=== PATIENT | female | born 1990 | race American Indian/Alaskan Native ===

== ENCOUNTER 2019-10-07 10:12 | Outpatient (CLI) | payer MEDICAID ==
[2019-10-07 11:24] VITALS: BP 110/65
[2019-10-07 13:08] LABS: Bacteria,Urine 1+ /HPF (Negative); Bilirubin,Urine NEG (Negative); Blood,Urine NEG (Negative); Color,Urine Straw (Yellow); Protein,Urine <15 mg/dL mg/dL (Negative); Urobilinogen,Urine < 2.0 mg/dL (<2.0)
[2019-10-07] MEDS ORDERED: CLINDAMYCIN 300 MG/50 mL 300 MG/50 ML BAG IV ONE (14:00)
== END 2019-10-07 15:17 | disposition home or self-care (01) ==
LOC: TRG 10:12
PROVIDERS: ATTEND Obstetrics & Gynecology
DX: O47.1 False labor at or after 37 completed weeks of gestation (principal); Z3A.39 39 weeks gestation of pregnancy
CPT/HCPCS: 59025; 81001

== ENCOUNTER 2019-10-11 22:45 | Inpatient (IN) | payer MEDICAID ==
[2019-10-12] MEDS ORDERED: LIDOCAINE (2%) 20 MG/1 ML VIAL 20 ML MDV INFILTRATI ONE (00:59)
[2019-10-12] MEDS ORDERED: LACTATED RINGERS 1,000 ML IV SCH (01:00)
--- NOTE | 2019-10-12 01:07 | History and Physical Report ---
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 Family/Genetic History: diabetes (PGF), cancer (Mother of throat cancer at age 44) Social history: single, other (Living in a Extended Stay Hotel [place], [place]) - Obstetrical History Expected Date of Delivery: 10/18/19 Actual Gestation: 39 Week(s) 1 Day(s) : 4 Para: 3 Number of Pregnancies: 3 Number of Living Children: 3 #1 Infant Gender: Male year: 2,015 Birthweight: 2.268 kg Method of Delivery: Vaginal Gestational age at delivery: 34 #2 Gender: Female year: 2,016 Birthweight: 2.268 kg Method of Delivery: Vaginal Gestational age at delivery: 35 #3 Infant Gender: Male year: 2,017 Birthweight: 2.722 kg Method of Delivery: Vaginal Gestational age at delivery: 32 Medications and Allergies Allergies Allergy/AdvReac Type Severity Reaction Status Date / Time Penicillins Allergy Hives Verified 10/07/19 11:12 Home Medications Medication Instructions Recorded Confirmed Last Taken Type No Known Home Medications [No 10/07/19 10/07/19 Unknown History Reported Home Medications] Active Meds: Active Medications Oxytocin/Sodium Chloride (Pitocin/Ns 20 Unit/1000ml Drip) 20 units in 1,000 mls @ 125 mls/hr IV DIRECT LACI Lactated Ringer's (Lactated Ringers) 1,000 mls @ 125 mls/hr IV DIRECT LACI Lidocaine (Xylocaine 2%) 20 ml INFILTRATI ONCE ONE Stop: 10/12/19 01:00 Review of Systems All systems: negative - Vital Signs Vital signs: Vital Signs Temp Pulse Resp BP 98.2 F 86 18 122/68 10/11/19 23:30 10/11/19 23:30 10/11/19 23:30 10/11/19 23:30 Temp Pulse Resp BP Pulse Ox 98.2 F 86 18 122/68 10/11/19 23:30 10/11/19 23:30 10/11/19 23:30 10/11/19 23:30 - Physical Exam Breasts: Positive: normal Lungs: Positive: Clear to auscultation, Normal air movement Abdomen: Positive: normal appearance, soft Genitourinary (Female): Positive: normal external genitalia Uterus: Positive: enlarged Anus/Rectum: Positive: normal perianal skin Extremities: Positive: normal - Obstetrical Uterine Contraction Monitor Mode: External Cervical Dilatation: 10 Cervical Effacement Percentage: 100 station: +4 Uterine Contraction Pattern: Regular Uterine Contraction Intensity: Strong/Firm Results All other labs normal. Assessment and Plan A: IUP @ 39 Weeks Active Labor GBS Unknown Walk-In patient P: Admit to L&D per Routine Orders Expect
[2019-10-12] MEDS ORDERED: WITCH HAZEL/ GLYCERIN PAD TP PRN (01:10)
[2019-10-12] MEDS ORDERED: diphenhydrAMINE 25 MG CAP PO PRN (01:10)
[2019-10-12] MEDS ORDERED: MAGNESIUM HYDROXIDE (MOM) ORAL LIQD UDC PO PRN (01:10)
[2019-10-12] MEDS: OXYTOCIN 20 UNIT/1000ML DRIP 20 UNITS/1,000 ML BAG IV SCH ×2 (01:11→01:20)
[2019-10-12] MEDS ORDERED: OXYTOCIN 10 UNIT/1 ML INJ IM ONE (01:19)
--- NOTE | 2019-10-12 01:19 | Procedure Note ---
OB Delivery Note - Delivery Date of Delivery: 10/11/19 (2247) Surgeon: JENELLE LAMB Estimated blood loss: 200cc - Vaginal Delivery presentation: vertex Intrapartum events: precipitous labor- <3hr Delivery induction: none Delivery monitor: none Route of delivery: Delivery placenta: spontaneous Episiotomy: none Delivery laceration: none Anesthesia: none Delivery comments: Arrived by EMS with head crowing; Precipitous vaginal delivery on the stretcher of a 6'13 female infant over a intact perineum without pain control with Apgars of 8 and 9 at 2247 on 10/11/2019. Infant directly to maternal abd/chest, skin to skin contact. Spontaneous delivery of placenta complete and intact with [place] side presenting at 2257. 20U of Pitocin given IM x 1 dose. Fundus is firm and midline located 4 below the U. Lochia is scant. Placenta to pathology. Cord blood collected. - A at 1 minute: 8 at 5 minutes: 9 Gender: Female (6'13)
[2019-10-12] MEDS: IBUPROFEN 600 MG TAB PO SCH ×4 (03:12→23:26)
[2019-10-12] MEDS: ACETAMINOPHEN 325 MG TAB PO PRN (05:25)
[2019-10-12] MEDS: PRENATAL VIT27-FE FUMARATE-FOLIC ACID VIT TAB PO SCH (10:04)
--- NOTE | 2019-10-12 12:24 | Progress Note ---
Assessment and Plan A: PPD#1 s/p Bottle feeding Pt staying in extended stay, no family present, poor historian Stable P: Routine PP care environmental services specialist consult Anticipate d/c in 24-48 hrs Subjective - Subjective Date of service: 10/12/19 Principal diagnosis: PPD#1 s/p Interval history: Pt presented to [facility] via EMS with precip delivery of viable female infant. 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 She is currently living in an extended stay in [place]. She hasn't chosen a name for the baby and she has no family present. is in room in bedside crib. Patient reports: appetite normal, voiding normally, pain well controlled, flatus, ambulating normally [place]: doing well, bottle feeding Objective - Vital Signs Latest vital signs: Vital Signs Temp Pulse Resp BP BP Pulse Ox 10/12/19 08:54 98.0 F 69 16 119/69 96 10/12/19 01:45 98.1 F 87 18 116/65 97 10/11/19 23:30 98.2 F 86 18 122/68 122/68 Intake and Output 10/11/19 10/12/19 10/12/19 23:59 07:59 15:59 Intake Total 18.75 240 Balance 18.75 240 Intake: IV 18.75 PITOCin/NS 20 UNIT/1000ML 18.75 DRIP 20 units In 1,000 ml @ 125 mls/hr IV DIRECT LACI Rx#:[id number] Oral 240 Other: Total, Intake Amount 240 Weight 106.594 kg - Exam Breasts: Present: normal Cardiovascular: Present: Regular rate, Normal S1, Normal S2, No murmurs Lungs: Present: Clear to auscultation, Normal air movement Abdomen: Present: normal appearance, soft, normal bowel sounds. Absent: distention Vulva: both: normal Uterus: Present: firm, fundal height below umbilicus (-1) Extremities: Present: normal Deep Tendon Reflex Grade: Normal +2
[2019-10-12 15:13] LABS: Hematocrit 33.1 % (30.3-42.9); Hemoglobin 10.8 gm/dl (10.1-14.3)
[2019-10-13] MEDS ORDERED: MEASLES, MUMPS & RUBELLA 12,500 UNIT/0.5 ML VACCINE SUB-Q ONE (06:00)
[2019-10-13] MEDS ORDERED: TETANUS,DIPH,PERTUSS(ACELL) VACCINE 0.5 ML SYRINGE IM ONE (06:00)
[2019-10-13] MEDS: IBUPROFEN 600 MG TAB PO SCH ×4 (06:00→23:52)
[2019-10-13] MEDS: PRENATAL VIT27-FE FUMARATE-FOLIC ACID VIT TAB PO SCH (08:20)
--- NOTE | 2019-10-13 11:41 | Discharge Summary ---
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 Hospitalization Reason for admission: active labor, IUP at term Delivery: Episiotomy: none Laceration: none Other procedures: none complications: none Discharge diagnosis: other [place] baby: female Hospital course: See admission H & P; OB delivery summary and PP progress notes Condition at discharge: Good Disposition: DC-01 TO HOME OR SELFCARE - Discharge Diagnoses (1) (normal spontaneous vaginal delivery) Status: Acute (2) Anemia Status: Acute Qualifiers: Anemia type: other cause Other causes of anemia: acute posthemorrhagic Qualified Code(s): D62 - Acute posthemorrhagic anemia Plan - Provider Discharge Summary Activity: routine, no sex for 6 weeks, no heavy lifting 4 weeks, no strenuous exercise Diet: other (Iron rich diet) Instructions: routine Additional instructions: [] Smoking cessation referral if applicable(refer to patient education folder for contact #) [] Refer to [facility]'s [facility] Booklet Call your doctor immediately for: * Fever > 100.5 * Heavy vaginal bleeding ( >1 pad per hour) * Severe persistent headache * Shortness of breath * Reddened, hot, painful area to leg or breast - Follow up plan Follow up: PRIMARY CARE, [Primary Care Provider] - 6 Weeks Forms: [facility] Discharge Summary, Discharge Signature Page
[2019-10-13] MEDS: ACETAMINOPHEN 325 MG TAB PO PRN (21:29)
[2019-10-14] MEDS: IBUPROFEN 600 MG TAB PO SCH (07:58)
[2019-10-14 12:24] VITALS: BP 108/70
== END 2019-10-14 14:30 | disposition home or self-care (01) | DRG 775 ==
LOC: LD 22:45 → OB 10-12 01:23
PROVIDERS: ADMIT Obstetrics & Gynecology; ATTEND Obstetrics & Gynecology
PROC: 10E0XZZ Delivery of Products of Conception, External Approach (ICD-10-PCS; principal; 2019-10-12)
DX: O62.3 Precipitate labor (principal); Z3A.39 39 weeks gestation of pregnancy; Z37.0 Single live birth; O90.81 Anemia of the puerperium; D62 Acute posthemorrhagic anemia
CPT/HCPCS: 36415; 85014; 85018; 86592; 86706; 86762; 86850; 86900; 86901; 87806; 88307; G0378; J2590

== ENCOUNTER 2021-07-30 16:50 | Inpatient (IN) | payer MEDICAID ==
--- NOTE | 2021-07-30 17:20 | Event Note ---
ED Screening Note Date of service: 07/30/21 Time: 17:18 ED Screening Note: 31-year-old -[place] female who is approximately 32 weeks presents to the emergency room complaining of chest tightness shortness of breath for the last couple days. Patient was cleared by labor and delivery. She is unvaccinated. She has not tested for Covid. She denies any sick contact. This initial assessment/diagnostic orders/clinical plan/treatment(s) is/are subject to change based on patients health status, clinical progression and re- assessment by fellow clinical providers in the ED. Further treatment and workup at subsequent clinical providers discretion. Patient/guardian urged not to elope from the ED as their condition may be serious if not clinically assessed and managed. Initial orders include:
--- NOTE | 2021-07-30 17:39 | Emergency Department Report ---
ED Shortness of Breath HPI - General Chief Complaint: Dyspnea/Respdistress Stated Complaint: ISABELLA Time Seen by Provider: 07/30/21 17:29 Source: patient Mode of arrival: Ambulatory Limitations: No Limitations - History of Present Illness Initial Comments: 31-year-old female, no past medical history, currently 32 weeks , unvaccinated against COVID-19, presents to ED with difficulty breathing for 2 to 3 days. Patient reports associated cough, sore throat pain. She denies fever or chills, loss of smell or taste. Patient denies any history of PE or DVT. She denies any leg pain or swelling. Patient denies any known contact with anyone who was tested positive for COVID-19. Patient denies any abdominal pain, vaginal bleeding, or leakage of vaginal fluid. 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 Has not yet made an appointment with the OB group that she wants to go to. She is currently in between [employer]KE [employer]INGS [employer]ATER's. MD Complaint: shortness of breath -: days(s) (3) Severity: moderate Consistency: constant Improves With: rest Worsens With: exertion Associated Symptoms: chest pain, cough, nausea/vomiting Treatments Prior to Arrival: none - Related Data Home Oxygen Therapy: No Home Medications Medication Instructions Recorded Confirmed Last Taken Vitamin 1 tab PO QDAY 10/12/19 10/12/19 10/10/19 Allergies Allergy/AdvReac Type Severity Reaction Status Date / Time Penicillins Allergy Hives Verified 10/07/19 11:12 ED Review of Systems ROS: Stated complaint: ISABELLA Other details as noted in HPI Comment: All other systems reviewed and negative Constitutional: denies: chills, fever ENT: other (Denies loss of smell or taste) Respiratory: cough, shortness of breath Cardiovascular: chest pain Gastrointestinal: nausea, vomiting Musculoskeletal: other (Denies leg pain or swelling) ED Past Medical Hx - Past Medical History Previous Medical History?: No Hx Hypertension: No Hx Congestive Heart Failure: No Hx Diabetes: No Hx Deep Vein Thrombosis: No Hx Renal Disease: No Hx Sickle Cell Disease: No Hx Seizures: No Hx Asthma: No Hx COPD: No Hx HIV: No - Surgical History Past Surgical History?: No - Social History Smoking Status: Never Smoker Substance Use Type: None - Medications Home Medications: Home Medications Medication Instructions Recorded Confirmed Last Taken Type Vitamin 1 tab PO QDAY 10/12/19 10/12/19 10/10/19 History ED Physical Exam - General Limitations: No Limitations General appearance: alert, in no apparent distress, obese - Head Head exam: Present: atraumatic, normocephalic - Eye Eye exam: Present: normal appearance, EOMI - ENT ENT exam: Present: mucous membranes moist - Neck Neck exam: Present: normal inspection - Respiratory Respiratory exam: Present: normal lung sounds bilaterally, other (Tachypnea pre sent) - Cardiovascular Cardiovascular Exam: Present: normal rhythm, tachycardia - GI/Abdominal GI/Abdominal exam: Present: soft. Absent: distended, tenderness - Extremities Exam Extremities exam: Present: normal inspection. Absent: pedal edema, calf tenderness - Neurological Exam Neurological exam: Present: alert, oriented X3 - Psychiatric Psychiatric exam: Present: normal affect, normal mood - Skin Skin exam: Present: warm, dry, intact, normal color ED Course Vital Signs 07/30/21 07/30/21 07/30/21 16:53 18:46 18:47 Temperature 97.4 F L Pulse Rate 122 H 105 H 105 H Respiratory 19 39 H 42 H Rate Blood Pressure 118/82 Blood Pressure 123/80 [Left] O2 Sat by Pulse 94 98 96 Oximetry 07/30/21 07/30/21 07/30/21 19:00 19:23 19:31 Temperature Pulse Rate 104 H 96 H 98 H Respiratory 36 H 41 H 35 H Rate Blood Pressure 121/88 121/88 121/88 Blood Pressure [Left] O2 Sat by Pulse 98 99 99 Oximetry 07/30/21 07/30/21 07/30/21 19:45 20:01 20:15 Temperature Pulse Rate 96 H 101 H 95 H Respiratory 33 H 34 H 32 H Rate Blood Pressure 121/88 121/88 121/88 Blood Pressure [Left] O2 Sat by Pulse 99 100 98 Oximetry 07/30/21 07/30/21 07/30/21 20:31 20:45 21:01 Temperature Pulse Rate 106 H 98 H 104 H Respiratory 31 H 30 H 35 H Rate Blood Pressure 121/88 121/88 121/88 Blood Pressure [Left] O2 Sat by Pulse 98 99 99 Oximetry 07/30/21 07/30/21 21:56 22:01 Temperature Pulse Rate 102 H 100 H Respiratory 26 H 37 H Rate Blood Pressure 105/81 Blood Pressure [Left] O2 Sat by Pulse 99 98 Oximetry - Reevaluation(s) Reevaluation #1: 07/30/21 18:45 Pt refused ambulatory O2 test. Reevaluation #2: 07/30/21 20:38 heart tones 156 Reevaluation #3: 07/30/21 20:59 RT attempted HFNC on patient to try and help with her tachypnea and work of breathing. However patient refused, states she cannot tolerate it. Patient placed on 2 L O2 NC. - Consultations Consultation #1: 07/30/21 20:[address] Strauss, OB on-call. Will consult on patient. ED Medical Decision Making - Lab Data Result diagrams: 07/30/21 17:43 07/30/21 18:48 - EKG Data -: EKG Interpreted by Me EKG shows normal: sinus rhythm, axis, intervals, QRS complexes, ST-T waves Rate: tachycardia (rate 122) - Radiology Data Radiology results: report reviewed, image reviewed - Medical Decision Making 31-year-old female, 32 weeks , presents to ED with difficulty breathing. Chest x-ray shows bilateral pneumonia. Likely COVID-19 infection. Patient is unvaccinated against COVID-19. CTA negative for PE. O2 sats normal, however patient is tachypneic. ABG shows CO2 of 18, likely secondary to her tachypnea. pH is normal. Attempted to place patient on high flow nasal cannula, however patient refused. Patient that was placed on 2 L O2 via nasal cannula. heart tones are normal. Patient has no related complaints. She denies any abdominal pain, leakage of amniotic fluid, or vaginal bleeding. OB service has been consulted to follow the patient. Patient has been given azithromycin and Decadron. She will be admitted by hospitalist, Dr. Keene. - Differential Diagnosis Pneumonia, COVID-19, PE Critical Care Time: Yes Critical care time in (mins) excluding proc time.: 35 Critical care attestation.: If time is entered above; I have spent that time in minutes in the direct care of this critically ill patient, excluding procedure time. Critical Care Time: 35 min ED Disposition Clinical Impression: Suspected COVID-19 virus infection, Pneumonia, 32 weeks gestation of , Sepsis Disposition: ADMITTED INPATIENT Is pt being admited?: Yes Condition: Stable Time of Disposition: 21:52
[2021-07-30 18:03] LABS: Hematocrit 37.4 % (30.3-42.9); Mean Corpuscular HGB Conc 32 % (30-34); Mean Corpuscular Volume 72 fl (79-97); Platelet Count 328 K/mm3 (140-440); Red Blood Count 5.19 M/mm3 (3.65-5.03); Red Cell Distribution Width 18.1 % (13.2-15.2)
[2021-07-30 18:19] LABS: Alanine Aminotransferase 9 units/L (7-56); Albumin 3.1 g/dL (3.9-5); BUN/Creatinine Ratio 6; Blood Urea Nitrogen 5 mg/dL (7-17); Calcium 9.5 mg/dL (8.4-10.2); Hemolysis Index 0
--- NOTE | 2021-07-30 18:23 | XRay Report ---
CHEST 1 VIEW INDICATION: sob. COMPARISON: None. FINDINGS: Support devices: None. Heart: Normal. Lungs/Pleura: There is airspace disease within both mid to lower lungs, right greater than left. No p leural abnormality. IMPRESSION: 1. Bilateral pneumonia Signer Name: Larry Garcia MD Signed: 07/30/2021 6:19 PM Workstation Name: [id number]
[2021-07-30] MEDS ORDERED: DEXAMETHASONE 4 MG TAB PO ONE (18:54)
[2021-07-30] MEDS ORDERED: AZITHROMYCIN 250 MG TAB PO ONE ×2 (18:56→22:07)
--- NOTE | 2021-07-30 19:33 | Cat Scan Report ---
CTA CHEST WITH IV CONTRAST INDICATION: Shortness of breath, difficulty breathing. TECHNIQUE: Axial CT images were obtained through the chest after injection of 100 mL Omnipaque 350 IV contrast. 3 plane MIP reconstructions were produced. All CT scans at this location are performed using CT dose reduction for ALARA by means of automated exposure control. COMPARISON: None available. FINDINGS: Pulmonary Arteries: No pulmonary emboli. Lungs: There are patchy peripheral groundglass opacities in both lungs. Trachea and Bronchi: No significant abnormality. Heart and Pericardium: No significant abnormality. Vasculature: No significant abnormality. Lymphatics: No lymphadenopathy. Additional Findings: None. Upper Abdomen: No acute findings. Skeletal Structures: No acute findings or aggressive bone lesions. IMPRESSION: 1. No CT evidence for pulmonary embolism. 2. Patchy peripheral groundglass opacities in both lungs likely indicating multifocal pneumonia. Signer Name: Gilson Hidalgo MD Signed: 07/30/2021 7:29 PM Workstation Name: [id number]
[2021-07-30 20:25] LABS: Total Cells Counted 100
[2021-07-30 20:26] LABS: Hypochromasia 1+
[2021-07-30 20:27] LABS: Large Platelets Few
[2021-07-30 20:29] LABS: Anisocytosis 1+; Platelet Estimate Consistent w Auto
--- NOTE | 2021-07-30 21:28 | Consultation ---
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 No complaints. Active fetus. Denies PIH symptoms. No records for review. Past History Past Medical History: no pertinent history Past Surgical History: no surgical history Family/Genetic History: none Social history: no significant social history - Obstetrical History Expected Date of Delivery: 09/17/21 Actual Gestation: 33 Week(s) 0 Day(s) : 5 Para: 4 Number of Living Children: 4 Medications and Allergies Allergies Allergy/AdvReac Type Severity Reaction Status Date / Time Penicillins Allergy Hives Verified 10/07/19 11:12 Home Medications Medication Instructions Recorded Confirmed Last Taken Type Vitamin 1 tab PO QDAY 10/12/19 10/12/19 10/10/19 History Review of Systems All systems: negative (expect HPI) - Vital Signs Vital signs: Vital Signs Temp Pulse Resp BP Pulse Ox 97.4 F L 122 H 19 118/82 94 07/30/21 16:53 07/30/21 16:53 07/30/21 16:53 07/30/21 16:53 07/30/21 16:53 Temp Pulse Resp BP Pulse Ox 97.4 F L 105 H 42 H 123/80 96 07/30/21 16:53 07/30/21 18:47 07/30/21 18:47 07/30/21 18:47 07/30/21 18:47 - Physical Exam Cardiovascular: Regular rate, Normal S1 Lungs: Positive: Other (decreased breath sounds bilaterally, + tachynpea) Abdomen: Positive: normal appearance, soft Uterus: Positive: enlarged - Obstetrical FHR: category 1 Uterine Contraction Monitor Mode: External Uterine Contraction Pattern: Absent Results Result Diagrams: 07/30/21 17:43 07/30/21 18:48 Abnormal lab results 07/30/21 07/30/21 07/30/21 Range/Units 17:43 17:43 17:43 RBC 5.19 H (3.65-5.03) M/mm3 MCV 72 L (79-97) fl MCH 23 L (28-32) pg RDW 18.1 H (13.2-15.2) % Seg Neuts % (Manual) 89.0 H (40.0-70.0) % Lymphocytes % (Manual) 8.0 L (13.4-35.0) % Nucleated RBC % 1.0 H (0.0-0.9) % Seg Neutrophils # Man 9.3 H (1.8-7.7) K/mm3 Lymphocytes # (Manual) 0.8 L (1.2-5.4) K/mm3 D-Dimer 984.89 H (0-234) ng/mlDDU POC ABG pCO2 (32.0-48.0) mmHg ABG Sodium (136.0-145.0) mmol/L ABG Chloride (98-107) mmol/L ABG Glucose (65-95) mg/dL Carboxyhemoglobin (0.5-1.5) Sodium 135 L (137-145) mmol/L Potassium 3.4 L (3.6-5.0) mmol/L Carbon Dioxide 8 L* (22-30) mmol/L BUN 5 L (7-17) mg/dL Glucose 116 H (65-100) mg/dL Total Bilirubin 2.10 H (0.1-1.2) mg/dL Alkaline Phosphatase 189 H (35-129) units/L Lactate Dehydrogenase (91-180) units/L C-Reactive Protein (0.00-1.30) mg/dL Albumin 3.1 L (3.9-5) g/dL Arterial Blood Glucose (65-95) mg/dL 07/30/21 07/30/21 07/30/21 Range/Units 18:48 18:48 20:35 RBC (3.65-5.03) M/mm3 MCV (79-97) fl MCH (28-32) pg RDW (13.2-15.2) % Seg Neuts % (Manual) (40.0-70.0) % Lymphocytes % (Manual) (13.4-35.0) % Nucleated RBC % (0.0-0.9) % Seg Neutrophils # Man (1.8-7.7) K/mm3 Lymphocytes # (Manual) (1.2-5.4) K/mm3 D-Dimer 968.21 H (0-234) ng/mlDDU POC ABG pCO2 18.0 L (32.0-48.0) mmHg ABG Sodium 135.3 L (136.0-145.0) mmol/L ABG Chloride 108.0 H (98-107) mmol/L ABG Glucose 101 H (65-95) mg/dL Carboxyhemoglobin 0.4 L (0.5-1.5) Sodium (137-145) mmol/L Potassium (3.6-5.0) mmol/L Carbon Dioxide (22-30) mmol/L BUN (7-17) mg/dL Glucose 115 H (65-100) mg/dL Total Bilirubin (0.1-1.2) mg/dL Alkaline Phosphatase (35-129) units/L Lactate Dehydrogenase 272 H (91-180) units/L C-Reactive Protein 10.00 H (0.00-1.30) mg/dL Albumin (3.9-5) g/dL Arterial Blood Glucose 101 H (65-95) mg/dL All other labs normal. Assessment and Plan - Patient Problems (1) 32 weeks gestation of Current Visit: Yes Status: Acute Plan to address problem: Patient without any complaints. No indication for acute management. Consider OB ultrasound to determine gestation, weight, and biophysical profile when stable. Would recommend twice daily heart rate monitoring. [employer] EXTRACTOR OPERATOR HELPER physicians are available for consultation. (2) Suspected COVID-19 virus infection Current Visit: Yes Status: Acute Plan to address problem: Patient with concurrent pneumonia concerning for Covid pneumonia. Primary management by hospitalist team. Dispo per hospitalist team.
--- NOTE | 2021-07-30 22:19 | History and Physical Report ---
History of Present Illness Date of examination: 07/30/21 Date of admission: 07/30/21 Chief complaint: Shortness of breath History of present illness: 31-year-old female with history of obesity. 32 weeks was brought to the emergency room because of progressive shortness of breath associated with cough, sore throat pain for last 2 3 days. She denies fever or chills, loss of smell or taste. Patient denies any history of PE or DVT. She denies any leg p ain or swelling. Patient denies any known contact with anyone who was tested positive for COVID-19. Patient denies any abdominal pain, vaginal bleeding, or leakage of vaginal fluid. Patient is not vaccinated against COVID-19. Chest CTA showed no CT evidence of PE, patchy peripheral groundglass opacities in the both lungs likely indicating multifocal pneumonia. 's were going to admit with the diagnosis of Covid pneumonia. Patient already seen and evaluated by PATIENT INSURANCE CLERK. Will consult infectious disease for evaluation Med rec is not available. Past History Past Medical History: other (Obesity, 32 weeks ) Social history: no significant social history Medications and Allergies Allergies Allergy/AdvReac Type Severity Reaction Status Date / Time Penicillins Allergy Hives Verified 10/07/19 11:12 Home Medications Medication Instructions Recorded Confirmed Last Taken Type Vitamin 1 tab PO QDAY 10/12/19 10/12/19 10/10/19 History Review of Systems All systems: negative Cardiovascular: shortness of breath, dyspnea on exertion Respiratory: cough, shortness of breath, dyspnea on exertion Exam - Constitutional Vitals: Temp Pulse Resp BP Pulse Ox 97.4 F L 100 H 37 H 105/81 98 07/30/21 16:53 07/30/21 22:01 07/30/21 22:01 07/30/21 22:01 07/30/21 22:01 General appearance: Present: no acute distress, well-nourished - EENT Eyes: Present: PERRL ENT: hearing intact, clear oral mucosa - Neck Neck: Present: supple, normal ROM - Respiratory Respiratory effort: normal Respiratory: bilateral: diminished - Cardiovascular Heart Sounds: Present: S1 & S2. Absent: rub, click - Extremities Extremities: pulses symmetrical, No edema Peripheral Pulses: within normal limits - Abdominal General gastrointestinal: Present: soft, non-tender, non-distended, normal bowel sounds Female genitourinary: Present: normal - Integumentary Integumentary: Present: clear, warm, dry - Musculoskeletal Musculoskeletal: gait normal, strength equal bilaterally - Psychiatric Psychiatric: appropriate mood/affect, intact judgment & insight - Neurologic Neurologic: CNII-XII intact, moves all extremities Results - Labs CBC & Chem 7: 07/30/21 17:43 07/30/21 18:48 Labs: Laboratory Last Values WBC 10.4 K/mm3 (4.5-11.0) 07/30/21 17:43 RBC 5.19 M/mm3 (3.65-5.03) H 07/30/21 17:43 Hgb 12.0 gm/dl (10.1-14.3) 07/30/21 17:43 Hct 37.4 % (30.3-42.9) 07/30/21 17:43 MCV 72 fl (79-97) L 07/30/21 17:43 MCH 23 pg (28-32) L 07/30/21 17:43 MCHC 32 % (30-34) 07/30/21 17:43 RDW 18.1 % (13.2-15.2) H 07/30/21 17:43 Plt Count 328 K/mm3 (140-440) 07/30/21 17:43 Add Manual Diff Complete 07/30/21 17:43 Total Counted 100 07/30/21 17:43 Seg Neuts % (Manual) 89.0 % (40.0-70.0) H 07/30/21 17:43 Lymphocytes % (Manual) 8.0 % (13.4-35.0) L 07/30/21 17:43 Monocytes % (Manual) 2.0 % (0.0-7.3) 07/30/21 17:43 Metamyelocytes % 1.0 % 07/30/21 17:43 Nucleated RBC % 1.0 % (0.0-0.9) H 07/30/21 17:43 Seg Neutrophils # Man 9.3 K/mm3 (1.8-7.7) H 07/30/21 17:43 Band Neutrophils # 0.0 K/mm3 07/30/21 17:43 Lymphocytes # (Manual) 0.8 K/mm3 (1.2-5.4) L 07/30/21 17:43 Abs React Lymphs (Man) 0.0 K/mm3 07/30/21 17:43 Monocytes # (Manual) 0.2 K/mm3 (0.0-0.8) 07/30/21 17:43 Eosinophils # (Manual) 0.0 K/mm3 (0.0-0.4) 07/30/21 17:43 Basophils # (Manual) 0.0 K/mm3 (0.0-0.1) 07/30/21 17:43 Metamyelocytes # 0.1 K/mm3 07/30/21 17:43 Myelocytes # 0.0 K/mm3 07/30/21 17:43 Promyelocytes # 0.0 K/mm3 07/30/21 17:43 Blast Cells # 0.0 K/mm3 07/30/21 17:43 WBC Morphology Not Reportable 07/30/21 17:43 Hypersegmented Neuts Not Reportable 07/30/21 17:43 Hyposegmented Neuts Not Reportable 07/30/21 17:43 Hypogranular Neuts Not Reportable 07/30/21 17:43 Smudge Cells Not Reportable 07/30/21 17:43 Toxic Granulation Not Reportable 07/30/21 17:43 Toxic Vacuolation Not Reportable 07/30/21 17:43 Dohle Bodies Not Reportable 07/30/21 17:43 Pelger-Huet Anomaly Not Reportable 07/30/21 17:43 Finesse Rods Not Reportable 07/30/21 17:43 Platelet Estimate Consistent w auto 07/30/21 17:43 Clumped Platelets Not Reportable 07/30/21 17:43 Plt Clumps, EDTA Not Reportable 07/30/21 17:43 Large Platelets Few 07/30/21 17:43 Giant Platelets Not Reportable 07/30/21 17:43 Platelet Satelliting Not Reportable 07/30/21 17:43 Plt Morphology Comment Not Reportable 07/30/21 17:43 RBC Morphology Not Reportable 07/30/21 17:43 Dimorphic RBCs Not Reportable 07/30/21 17:43 Polychromasia Not Reportable 07/30/21 17:43 Hypochromasia 1+ 07/30/21 17:43 Poikilocytosis Not Reportable 07/30/21 17:43 Anisocytosis 1+ 07/30/21 17:43 Microcytosis Not Reportable 07/30/21 17:43 Macrocytosis Not Reportable 07/30/21 17:43 Spherocytes Not Reportable 07/30/21 17:43 Pappenheimer Bodies Not Reportable 07/30/21 17:43 Sickle Cells Not Reportable 07/30/21 17:43 Target Cells Not Reportable 07/30/21 17:43 Tear Drop Cells Not Reportable 07/30/21 17:43 Ovalocytes Not Reportable 07/30/21 17:43 Helmet Cells Not Reportable 07/30/21 17:43 [place] Bodies Not Reportable 07/30/21 17:43 Brenton Rings Not Reportable 07/30/21 17:43 Kojo Cells Not Reportable 07/30/21 17:43 Bite Cells Not Reportable 07/30/21 17:43 Crenated Cell Not Reportable 07/30/21 17:43 Elliptocytes Not Reportable 07/30/21 17:43 Acanthocytes (Spur) Not Reportable 07/30/21 17:43 Rouleaux Not Reportable 07/30/21 17:43 Hemoglobin C Crystals Not Reportable 07/30/21 17:43 Schistocytes Not Reportable 07/30/21 17:43 Malaria parasites Not Reportable 07/30/21 17:43 Mayur Bodies Not Reportable 07/30/21 17:43 Hem Pathologist Commnt No 07/30/21 17:43 D-Dimer 968.21 ng/mlDDU (0-234) H 07/30/21 18:48 ABG pH 7.355 (7.320-7.450) 07/30/21 20:35 POC ABG pCO2 18.0 mmHg (32.0-48.0) L 07/30/21 20:35 POC ABG pO2 88.2 mmHg (83-108) 07/30/21 20:35 POC ABG HCO3 9.8 07/30/21 20:35 ABG O2 Saturation 96.3 (0-100) 07/30/21 20:35 POC ABG Base Excess -13.3 07/30/21 20:35 ABG Hemoglobin 12.3 (12.0-17.5) 07/30/21 20:35 ABG Oxyhemoglobin 95.6 (94-98) 07/30/21 20:35 ABG Methemoglobin 0.3 (0.0-1.5) 07/30/21 20:35 ABG Sodium 135.3 mmol/L (136.0-145.0) L 07/30/21 20:35 ABG Potassium 3.5 mmol/L (3.40-4.50) 07/30/21 20:35 ABG Chloride 108.0 mmol/L (98-107) H 07/30/21 20:35 ABG Glucose 101 mg/dL (65-95) H 07/30/21 20:35 Carboxyhemoglobin 0.4 (0.5-1.5) L 07/30/21 20:35 FiO2 % 21.0 07/30/21 20:35 Sodium 135 mmol/L (137-145) L 07/30/21 17:43 Potassium 3.4 mmol/L (3.6-5.0) L 07/30/21 17:43 Chloride 101.4 mmol/L (98-107) 07/30/21 17:43 Carbon Dioxide 8 mmol/L (22-30) L* 07/30/21 17:43 Anion Gap 29 mmol/L 07/30/21 17:43 BUN 5 mg/dL (7-17) L 07/30/21 17:43 Creatinine 0.8 mg/dL (0.6-1.2) 07/30/21 17:43 Estimated GFR > 60 ml/min 07/30/21 17:43 BUN/Creatinine Ratio 6 % 07/30/21 17:43 Glucose 115 mg/dL (65-100) H 07/30/21 18:48 Calcium 9.5 mg/dL (8.4-10.2) 07/30/21 17:43 Ferritin 92.0 ng/mL (10.0-200.0) 07/30/21 18:48 Total Bilirubin 2.10 mg/dL (0.1-1.2) H 07/30/21 17:43 AST 19 units/L (5-40) 07/30/21 17:43 ALT 9 units/L (7-56) 07/30/21 17:43 Alkaline Phosphatase 189 units/L (35-129) H 07/30/21 17:43 Lactate Dehydrogenase 272 units/L (91-180) H 07/30/21 18:48 C-Reactive Protein 10.00 mg/dL (0.00-1.30) H 07/30/21 18:48 Total Protein 8.2 g/dL (6.3-8.2) 07/30/21 17:43 Albumin 3.1 g/dL (3.9-5) L 07/30/21 17:43 Albumin/Globulin Ratio 0.6 % 07/30/21 17:43 Arterial Blood Glucose 101 mg/dL (65-95) H 07/30/21 20:35 Arterial Blood Ionized Calcium 4.7 mg/dL (4.6-5.3) 07/30/21 20:35 - Imaging and Cardiology CT scan - chest: report reviewed Assessment and Plan VTE prophylaxis?: Chemical Plan of care discussed with patient/family: Yes - Patient Problems (1) Suspected COVID-19 virus infection Current Visit: Yes Status: Acute Plan to address problem: Admit the patient to the IMCU. Oxygen per nasal penetrator per minute. DuoNeb by nebulizer every 4 hours. Albuterol via nebulizer every 4 hours as needed. Dexamethasone 6 mg IV daily. Zithromax 500 mg IV daily. We do the blood cultures sputum culture. Follow Covid PCR and Covid inflammatory marker. We will consult infectious disease evaluation. We also consult pulmonary evaluation (2) Pneumonia Current Visit: Yes Status: Acute Plan to address problem: Oxygen per nasal penetrator per minute. DuoNeb by nebulizer every 4 hours. Albuterol via nebulizer every 4 hours as needed. Dexamethasone 6 mg IV daily. Zithromax 500 mg IV daily. We do the blood cultures sputum culture. Follow Covid PCR and Covid inflammatory marker. We will consult infectious disease evaluation. We also consult pulmonary evaluation (3) 32 weeks gestation of Current Visit: Yes Status: Acute Plan to address problem: Patient already seen and evaluated by PATIENT INSURANCE CLERK doctor in the emergency room. We follow the recommendation. We will put the patient on 1 tablet p.o. daily. Monitor the patient closely (4) Obesity Current Visit: Yes Status: Acute Plan to address problem: Patient is counseled regarding weight reduction after (5) Metabolic acidosis Current Visit: Yes Status: Acute Plan to address problem: We'll put the patient on bicarb drip. Will consult pulmonary and critical care evaluation. We recheck the BMP in the morning. We'll monitor the patient closely (6) DVT prophylaxis Current Visit: Yes Status: Acute Plan to address problem: Heparin 5000 units subcu every 8 hours for DVT prophylaxis. Pepcid 20 mg p.o. twice daily for GI prophylaxis. Patient is a full code
[2021-07-30] MEDS ORDERED: PRENATAL VIT27-FE FUMARATE-FOLIC ACID VIT TAB PO ONE (22:24)
[2021-07-30] MEDS ORDERED: AZITHROMYCIN/NS 500 MG/250 ML 500 MG/250 ML BAG IV SCH (23:00)
[2021-07-30] MEDS ORDERED: HYDROmorphone 1 MG/1 ML INJ IV PRN (23:50)
[2021-07-30] MEDS ORDERED: ACETAMINOPHEN 325 MG TAB PO PRN (23:50)
[2021-07-30] MEDS ORDERED: SODIUM BICARBONATE 100 MEQ in WATER FOR INJECTION (PF) 1,000 ML IV SCH (23:50)
[2021-07-30] MEDS ORDERED: ALBUTEROL 2.5 MG/3 ML NEBU IH PRN (23:50)
[2021-07-31 04:40] LABS: Hematocrit 34.4 % (30.3-42.9); Hemoglobin 11.3 gm/dl (10.1-14.3); Mean Corpuscular HGB Conc 33 % (30-34); Mean Corpuscular Volume 71 fl (79-97); Platelet Count 306 K/mm3 (140-440); Red Blood Count 4.82 M/mm3 (3.65-5.03); Red Cell Distribution Width 18.3 % (13.2-15.2)
[2021-07-31 05:01] LABS: BUN/Creatinine Ratio 7; Blood Urea Nitrogen 6 mg/dL (7-17); Calcium 9.4 mg/dL (8.4-10.2); Hemolysis Index 0
[2021-07-31] MEDS: IPRATROPIUM/ALBUTEROL SULFATE 3 ML AMPUL.NEB IH SCH ×2 (05:19→11:01)
[2021-07-31 05:28] LABS: Hypochromasia 1+; Myelocytes # (Manual) 0.3 K/mm3; Platelet Estimate Consistent w Auto; Total Cells Counted 100
[2021-07-31] MEDS ORDERED: NON-FORMULARY EACH (Prenatal Vitamin 1 TAB) PO SCH (10:00)
[2021-07-31] MEDS ORDERED: dexAMETHasone 4 MG/ML VIAL IV SCH (10:00)
--- NOTE | 2021-07-31 11:50 | Event Note ---
Date: 07/31/21 Patient was admitted for suspected Covid. Covid test is pending. Patient is 32 weeks and she should not be admitted to hospitalist service in the first place. Patient was not on oxygen. Patient was complaining of vaginal pressure. FOREST [employer] AND [employer]ICY PROFESSOR was notified and asked to transfer the patient. Patient has metabolic acidosis and on bicarb drip. Patient was placed on dexamethasone and Zithromax. Zithromax can be discontinued if procalcitonin level is normal. ID and pulmonary is consulted. I will sign off please give me a call if there is questions.
[2021-07-31] MEDS ORDERED: AMPICILLIN/NS 2 GM/100 ML 2 GM/100 ML BAG IV ONE (12:37)
[2021-07-31] MEDS ORDERED: LOPERAMIDE 2 MG CAP PO PRN (12:37)
[2021-07-31] MEDS ORDERED: ePHEDrine SULFATE 50 MG/1 ML INJ IV PRN (12:37)
[2021-07-31] MEDS ORDERED: MINERAL OIL 30 ML ORAL LIQD PO PRN (12:37)
[2021-07-31] MEDS ORDERED: TERBUTALINE 1 MG/1 ML INJ SUB-Q PRN (12:37)
[2021-07-31] MEDS ORDERED: CARBOPROST TROMETHAMINE 250 MCG/1 ML INJ IM PRN (12:37)
[2021-07-31] MEDS ORDERED: ACETAMINOPHEN 325 MG TAB PO PRN (12:37)
[2021-07-31] MEDS ORDERED: fentaNYL 100 MCG/2 ML INJ IV PRN (12:37)
[2021-07-31] MEDS ORDERED: METHYLERGONOVINE MALEATE 0.2 MG/ML VIAL IM PRN (12:37)
[2021-07-31] MEDS ORDERED: OXYTOCIN 10 UNIT/1 ML INJ IM PRN (12:37)
[2021-07-31] MEDS ORDERED: miSOPROStol 200 MCG TAB PR PRN (12:37)
[2021-07-31] MEDS ORDERED: NalbUPHINE 10 MG/1 ML INJ IV PRN (12:37)
--- NOTE | 2021-07-31 12:42 | Consultation ---
History of Present Illness - Reason for Consult Consult date: 07/31/21 COVID PUI Requesting physician: FELIBERTO BROWER - History of Present Illness The patient is a 31-year-old female with obesity, 32 weeks was admitted with shortness of breath, cough going on for the last 4 days. Patient is unvaccinated against COVID-19. CTA chest showed no PE, showed patchy peripheral groundglass opacities bilaterally. Has been admitted to the hospital. Inf ectious diseases consulted for additional evaluation. At the time of my evaluation, patient is on room air. Afebrile. Review of Systems: General: no fevers,chills or rigors HEENT: no new visual disturbance Respiratory: Cough, minimal shortness of breath with chest pressure Cardiovascular: No chest pain, syncope Gastrointestinal: No nausea, vomiting or diarrhea Genitourinary: No dysuria or hematuria Musculoskeletal: No new or worsening neck pain or back pain Neurologic: No headaches, seizures Hematologic: No easy bruising or bleeding Endocrine: No night sweats or acute weight loss Skin: negative for rash, jaundice Psychiatric: No suicidal or homicidal ideation Past History Past Medical History: other (Obesity, 32 weeks ) Social history: no significant social history Medications and Allergies Allergies Allergy/AdvReac Type Severity Reaction Status Date / Time Penicillins Allergy Hives Verified 10/07/19 11:12 Home Medications Medication Instructions Recorded Confirmed Last Taken Type Vitamin 1 tab PO QDAY 10/12/19 10/12/19 10/10/19 History Active Meds: Active Medications Acetaminophen (Acetaminophen 325 Mg Tab) 650 mg PO Q4H PRN PRN Reason: Pain MILD(1-3)/Fever >100.5/ROJAS Albuterol (Albuterol 2.5 Mg/3 Ml Nebu) 2.5 mg IH Q4HRT PRN PRN Reason: Shortness Of Breath Albuterol/Ipratropium (Ipratropium/Albuterol Sulfate 3 Ml Ampul.Neb) 1 ampul IH Q6HRT [facility] Last Admin: 07/31/21 11:01 Dose: Not Given Documented by: Famotidine (Famotidine 20 Mg Tab) 20 mg PO BID [facility] Heparin Sodium (Porcine) (Heparin 5,000 Unit/1 Ml Vial) 5,000 unit SUB-Q Q12HR [facility] Sodium Bicarbonate 100 meq/ (Sterile Water) 1,100 mls @ 100 mls/hr IV DIRECT [facility] Last Admin: 07/31/21 00:48 Dose: 100 mls/hr Documented by: Azithromycin (Zithromax/Ns) 500 mg in 250 mls @ 250 mls/hr IV Q24HR [facility]; Protocol Multivitamins/Iron/Calcium ( Gbb90-Av Fumarate-Folic Acid Vit Tab) 1 each PO DAILY [facility] Ondansetron HCl (Ondansetron 4 Mg/2 Ml Inj) 4 mg IV Q8H PRN PRN Reason: Nausea And Vomiting Oxycodone/Acetaminophen (Oxycodone /Acetaminophen 5-325mg Tab) 1 tab PO Q6H PRN PRN Reason: Pain, Moderate (4-6) Sodium Chloride (Sodium Chloride 0.9% 10 Ml Flush Syringe) 10 ml IV BID [facility]ACI Sodium Chloride (Sodium Chloride 0.9% 10 Ml Flush Syringe) 10 ml IV PRN PRN PRN Reason: LINE FLUSH Physical Examination - Physical Exam Narrative exam: Physical Exam: Constitutional: Alert, cooperative. No acute distress. Obese Head, Ears, Nose: Normocephalic, atraumatic. External ears, nose normal Eyes: Conjunctivae/corneas clear. No icterus. No ptosis. Neck: Supple, no meningeal signs Cardiovascular: S1, S2 + Respiratory: Good air entry, clear to auscultation bilaterally GI: Soft, non-tender; bowel sounds normal. No peritoneal signs. Gravid uterus Musculoskeletal: No pedal edema, no cyanosis. Skin: No rash or abscess Hem/Lymphatic: No palpable cervical or supraclavicular nodes. No lymphangitis Psych: Mood ok. Affect normal Neurological: Awake, alert, oriented. No gross abnormality - Constitutional Vitals: Vital Signs Temp Pulse Resp BP Pulse Ox 97.4 F L 100 H 33 H 116/70 96 07/30/21 16:53 07/31/21 12:38 07/31/21 11:45 07/31/21 12:24 07/31/21 12:38 Temperature -Last 24 Hours Temperature 97.4 F Results - Labs CBC & Chem 7: 07/31/21 04:13 07/31/21 04:13 Labs: Abnormal lab results 07/30/21 07/30/21 07/30/21 Range/Units 17:43 17:43 17:43 RBC 5.19 H (3.65-5.03) M/mm3 MCV 72 L (79-97) fl MCH 23 L (28-32) pg RDW 18.1 H (13.2-15.2) % Seg Neuts % (Manual) 89.0 H (40.0-70.0) % Lymphocytes % (Manual) 8.0 L (13.4-35.0) % Nucleated RBC % 1.0 H (0.0-0.9) % Seg Neutrophils # Man 9.3 H (1.8-7.7) K/mm3 Lymphocytes # (Manual) 0.8 L (1.2-5.4) K/mm3 D-Dimer 984.89 H (0-234) ng/mlDDU POC ABG pCO2 (32.0-48.0) mmHg ABG Sodium (136.0-145.0) mmol/L ABG Chloride (98-107) mmol/L ABG Glucose (65-95) mg/dL Carboxyhemoglobin (0.5-1.5) Sodium 135 L (137-145) mmol/L Potassium 3.4 L (3.6-5.0) mmol/L Carbon Dioxide 8 L* (22-30) mmol/L BUN 5 L (7-17) mg/dL Glucose 116 H (65-100) mg/dL Total Bilirubin 2.10 H (0.1-1.2) mg/dL Alkaline Phosphatase 189 H (35-129) units/L Lactate Dehydrogenase (91-180) units/L C-Reactive Protein (0.00-1.30) mg/dL Albumin 3.1 L (3.9-5) g/dL Arterial Blood Glucose (65-95) mg/dL 07/30/21 07/30/21 07/30/21 Range/Units 18:48 18:48 20:35 RBC (3.65-5.03) M/mm3 MCV (79-97) fl MCH (28-32) pg RDW (13.2-15.2) % Seg Neuts % (Manual) (40.0-70.0) % Lymphocytes % (Manual) (13.4-35.0) % Nucleated RBC % (0.0-0.9) % Seg Neutrophils # Man (1.8-7.7) K/mm3 Lymphocytes # (Manual) (1.2-5.4) K/mm3 D-Dimer 968.21 H (0-234) ng/mlDDU POC ABG pCO2 18.0 L (32.0-48.0) mmHg ABG Sodium 135.3 L (136.0-145.0) mmol/L ABG Chloride 108.0 H (98-107) mmol/L ABG Glucose 101 H (65-95) mg/dL Carboxyhemoglobin 0.4 L (0.5-1.5) Sodium (137-145) mmol/L Potassium (3.6-5.0) mmol/L Carbon Dioxide (22-30) mmol/L BUN (7-17) mg/dL Glucose 115 H (65-100) mg/dL Total Bilirubin (0.1-1.2) mg/dL Alkaline Phosphatase (35-129) units/L Lactate Dehydrogenase 272 H (91-180) units/L C-Reactive Protein 10.00 H (0.00-1.30) mg/dL Albumin (3.9-5) g/dL Arterial Blood Glucose 101 H (65-95) mg/dL 07/31/21 07/31/21 Range/Units 04:13 04:13 RBC (3.65-5.03) M/mm3 MCV 71 L (79-97) fl MCH 24 L (28-32) pg RDW 18.3 H (13.2-15.2) % Seg Neuts % (Manual) 86.0 H (40.0-70.0) % Lymphocytes % (Manual) 7.0 L (13.4-35.0) % Nucleated RBC % 2.0 H (0.0-0.9) % Seg Neutrophils # Man 8.2 H (1.8-7.7) K/mm3 Lymphocytes # (Manual) 0.7 L (1.2-5.4) K/mm3 D-Dimer (0-234) ng/mlDDU POC ABG pCO2 (32.0-48.0) mmHg ABG Sodium (136.0-145.0) mmol/L ABG Chloride (98-107) mmol/L ABG Glucose (65-95) mg/dL Carboxyhemoglobin (0.5-1.5) Sodium (137-145) mmol/L Potassium 3.4 L (3.6-5.0) mmol/L Carbon Dioxide 12 L (22-30) mmol/L BUN 6 L (7-17) mg/dL Glucose (65-100) mg/dL Total Bilirubin (0.1-1.2) mg/dL Alkaline Phosphatase (35-129) units/L Lactate Dehydrogenase (91-180) units/L C-Reactive Protein (0.00-1.30) mg/dL Albumin (3.9-5) g/dL Arterial Blood Glucose (65-95) mg/dL - Imaging and Cardiology Chest x-ray: report reviewed, image reviewed CT scan - chest: report reviewed, image reviewed (patchy b/l GGO) Assessment and Plan Cultures: SARS CoV2 PCR: Pending A/P: 31-year-old female with obesity, 32 weeks was admitted with shortness of breath, cough : #Bilateral pneumonia: Likely secondary to COVID-19, test is pending at this time. Patient is not hypoxic. D-dimer 968, CRP 10.0, ferritin 92. #: 32 weeks . #Morbid obesity Recs: Follow-up COVID-19 PCR Currently, she remains on room air, is not a candidate for any COVID-19 related therapeutics at this time. No indication for remdesivir or steroids. If she is positive and becomes hypoxic, she has agreed to steroids and remdesivir. Follow-up procalcitonin, if low, antibiotics not indicated Loco Vincent MD, FACP [facility] O: [phone] F: [phone]
[2021-07-31] MEDS ORDERED: OXYTOCIN DRIP 30 UNITS/500 ML BAG IV SCH ×2 (13:00)
[2021-07-31] MEDS: ONDANSETRON 4 MG/2 ML INJ IV PRN ×2 (13:02→19:06)
[2021-07-31] MEDS ORDERED: TERBUTALINE 1 MG/1 ML INJ SUB-Q ONE (13:14)
--- NOTE | 2021-07-31 13:26 | History and Physical Report ---
History of Present Illness Date of examination: 07/31/21 Date of admission: 07/30/21 22:11 Chief complaint: vaginal pressure, sob. History of present illness: 31-year-old Afro-Finnish female at approximately 33 weeks with a presumptive diagnosis of Covid bilateral pneumonia admitted via the emergency room. She apparently had a care in [facility] and she is looking for another [employer] doctor at this time. She was sent from emergency room to labor and delivery and found to have a cervix that was 2 cm dilated 50% effaced -4 station vertex presenting bag of water intact. We have no records on her. The presumptive diagnosis at this time is possible early labor 33-week intrauterine and possible Covid bilateral pneumonia. She is being treated by the hospitalist infectious disease for her pneumonia. Not sure if th is patient is in active labor. Past History Past Medical History: no pertinent history, other (Obesity) Past Surgical History: no surgical history Family/Genetic History: none Social history: single - Obstetrical History : 5 Para: 4 Hx # Term Pregnancies: 4 Number of Pregnancies: 0 Spontaneous Abortions: 0 Induced : 0 Number of Living Children: 4 Medications and Allergies Allergies Allergy/AdvReac Type Severity Reaction Status Date / Time Penicillins Allergy Hives Verified 10/07/19 11:12 Home Medications Medication Instructions Recorded Confirmed Last Taken Type Vitamin 1 tab PO QDAY 10/12/19 10/12/19 10/10/19 History Active Meds: Active Medications Acetaminophen (Acetaminophen 325 Mg Tab) 650 mg PO Q4H PRN PRN Reason: Pain, Mild (1-3) Albuterol (Albuterol 2.5 Mg/3 Ml Nebu) 2.5 mg IH Q4HRT PRN PRN Reason: Shortness Of Breath Albuterol/Ipratropium (Ipratropium/Albuterol Sulfate 3 Ml Ampul.Neb) 1 ampul IH Q6HRT [facility] Last Admin: 07/31/21 11:01 Dose: Not Given Documented by: Carboprost Tromethamine (Carboprost Tromethamine 250 Mcg/1 Ml Inj) 250 mcg IM ONCE PRN PRN Reason: Uterine Bleeding Ephedrine Sulfate (Ephedrine Sulfate 50 Mg/1 Ml Inj) 10 mg IV Q2M PRN PRN Reason: Hypotension Famotidine (Famotidine 20 Mg Tab) 20 mg PO BID LACI Fentanyl (Fentanyl 100 Mcg/2 Ml Inj) 100 mcg IV Q2H PRN PRN Reason: Pain,Severe (7-10) LABOR PAIN Heparin Sodium (Porcine) (Heparin 5,000 Unit/1 Ml Vial) 5,000 unit SUB-Q Q12HR [facility] Sodium Bicarbonate 100 meq/ (Sterile Water) 1,100 mls @ 100 mls/hr IV DIRECT [facility]I Last Admin: 07/31/21 00:48 Dose: 100 mls/hr Documented by: Azithromycin (Zithromax/Ns) 500 mg in 250 mls @ 250 mls/hr IV Q24HR [facility]; Protocol Oxytocin/Sodium Chloride (Pitocin/Ns 30 Unit/500ml) 30 units in 500 mls @ 2 mls/hr IV TITR [facility]; Protocol Lactated Ringer's (Lactated Ringers) 1,000 mls @ 125 mls/hr IV DIRECT LACI Oxytocin/Sodium Chloride (Pitocin/Ns 30 Unit/500ml) 30 units in 500 mls @ 40 mls/hr IV TITR [facility]; Protocol Lidocaine (Lidocaine (2%) 20 Mg/1 Ml Vial 20 Ml Mdv) 20 ml INFILTRATI ONCE ONE Stop: 07/31/21 13:31 Loperamide HCl (Loperamide 2 Mg Cap) 2 mg PO ONCE PRN PRN Reason: give with Hemabate Methylergonovine Maleate (Methylergonovine Maleate 0.2 Mg/Ml Vial) 0.2 mg IM ONCE PRN PRN Reason: Uterine Bleeding Mineral Oil (Mineral Oil 30 Ml Oral Liqd) 30 ml PO QHS PRN PRN Reason: Constipation Misoprostol (Misoprostol 200 Mcg Tab) 800 mcg SD ONCE PRN PRN Reason: Uterine Bleeding Multivitamins/Iron/Calcium ( [id number] Fumarate-Folic Acid Vit Tab) 1 each PO DAILY [facility] Nalbuphine HCl (Nalbuphine 10 Mg/1 Ml Inj) 10 mg IV Q2H PRN PRN Reason: Pain, Moderate (4-6) Ondansetron HCl (Ondansetron 4 Mg/2 Ml Inj) 4 mg IV Q8H PRN PRN Reason: Nausea And Vomiting Last Admin: 07/31/21 13:02 Dose: 4 mg Documented by: Oxycodone/Acetaminophen (Oxycodone /Acetaminophen 5-325mg Tab) 1 tab PO Q6H PRN PRN Reason: Pain, Moderate (4-6) Oxytocin (Oxytocin 10 Unit/1 Ml Inj) 10 unit IM ONCE PRN PRN Reason: Uterine Bleeding Sodium Chloride (Sodium Chloride 0.9% 10 Ml Flush Syringe) 10 ml IV BID LACI Sodium Chloride (Sodium Chloride 0.9% 10 Ml Flush Syringe) 10 ml IV PRN PRN PRN Reason: LINE FLUSH Terbutaline Sulfate (Terbutaline 1 Mg/1 Ml Inj) 0.25 mg SUB-Q ONCE PRN PRN Reason: Hyperstimulation/Hypertonicity Review of Systems All systems: negative Ears, nose, mouth and throat: other (Graft) Respiratory: other (Shortness of breath) Genitourinary: normal appearance - Vital Signs Vital signs: Vital Signs Temp Pulse Resp BP Pulse Ox 97.4 F L 122 H 19 118/82 94 07/30/21 16:53 07/30/21 16:53 07/30/21 16:53 07/30/21 16:53 07/30/21 16:53 Temp Pulse Resp BP Pulse Ox 97.4 F L 92 H 33 H 116/70 98 07/30/21 16:53 07/31/21 13:19 07/31/21 11:45 07/31/21 12:24 07/31/21 13:19 - Physical Exam Breasts: Lungs: Positive: Other (sob) Abdomen: Positive: normal appearance, other Genitourinary (Female): Positive: normal external genitalia, normal perenium Vulva: both: normal Vagina: Positive: normal moisture. Negative: discharge Cervix: Positive: other (2 cm 50% -4 station bag of water intact vertex presenting.) Uterus: Positive: enlarged (33 to 34 weeks size.) Adnexa: both: normal Anus/Rectum: Positive: normal perianal skin, heme negative. Negative: rectal mass, hemorrhoids Deep Tendon Reflex Grade: Normal +2 - Obstetrical FHR: category 1 Uterine Contraction Monitor Mode: External Cervical Dilatation: 2 Cervical Effacement Percentage: 50 station: -4 Uterine Contraction Frequency (min): Irregular Uterine Contraction Pattern: Irregular Results Result Diagrams: 07/31/21 04:13 07/31/21 04:13 Abnormal lab results 07/30/21 07/30/21 07/30/21 Range/Units 17:43 17:43 17:43 RBC 5.19 H (3.65-5.03) M/mm3 MCV 72 L (79-97) fl MCH 23 L (28-32) pg RDW 18.1 H (13.2-15.2) % Seg Neuts % (Manual) 89.0 H (40.0-70.0) % Lymphocytes % (Manual) 8.0 L (13.4-35.0) % Nucleated RBC % 1.0 H (0.0-0.9) % Seg Neutrophils # Man 9.3 H (1.8-7.7) K/mm3 Lymphocytes # (Manual) 0.8 L (1.2-5.4) K/mm3 D-Dimer 984.89 H (0-234) ng/mlDDU POC ABG pCO2 (32.0-48.0) mmHg ABG Sodium (136.0-145.0) mmol/L ABG Chloride (98-107) mmol/L ABG Glucose (65-95) mg/dL Carboxyhemoglobin (0.5-1.5) Sodium 135 L (137-145) mmol/L Potassium 3.4 L (3.6-5.0) mmol/L Carbon Dioxide 8 L* (22-30) mmol/L BUN 5 L (7-17) mg/dL Glucose 116 H (65-100) mg/dL Total Bilirubin 2.10 H (0.1-1.2) mg/dL Alkaline Phosphatase 189 H (35-129) units/L Lactate Dehydrogenase (91-180) units/L C-Reactive Protein (0.00-1.30) mg/dL Albumin 3.1 L (3.9-5) g/dL Arterial Blood Glucose (65-95) mg/dL 07/30/21 07/30/21 07/30/21 Range/Units 18:48 18:48 20:35 RBC (3.65-5.03) M/mm3 MCV (79-97) fl MCH (28-32) pg RDW (13.2-15.2) % Seg Neuts % (Manual) (40.0-70.0) % Lymphocytes % (Manual) (13.4-35.0) % Nucleated RBC % (0.0-0.9) % Seg Neutrophils # Man (1.8-7.7) K/mm3 Lymphocytes # (Manual) (1.2-5.4) K/mm3 D-Dimer 968.21 H (0-234) ng/mlDDU POC ABG pCO2 18.0 L (32.0-48.0) mmHg ABG Sodium 135.3 L (136.0-145.0) mmol/L ABG Chloride 108.0 H (98-107) mmol/L ABG Glucose 101 H (65-95) mg/dL Carboxyhemoglobin 0.4 L (0.5-1.5) Sodium (137-145) mmol/L Potassium (3.6-5.0) mmol/L Carbon Dioxide (22-30) mmol/L BUN (7-17) mg/dL Glucose 115 H (65-100) mg/dL Total Bilirubin (0.1-1.2) mg/dL Alkaline Phosphatase (35-129) units/L Lactate Dehydrogenase 272 H (91-180) units/L C-Reactive Protein 10.00 H (0.00-1.30) mg/dL Albumin (3.9-5) g/dL Arterial Blood Glucose 101 H (65-95) mg/dL 07/31/21 07/31/21 Range/Units 04:13 04:13 RBC (3.65-5.03) M/mm3 MCV 71 L (79-97) fl MCH 24 L (28-32) pg RDW 18.3 H (13.2-15.2) % Seg Neuts % (Manual) 86.0 H (40.0-70.0) % Lymphocytes % (Manual) 7.0 L (13.4-35.0) % Nucleated RBC % 2.0 H (0.0-0.9) % Seg Neutrophils # Man 8.2 H (1.8-7.7) K/mm3 Lymphocytes # (Manual) 0.7 L (1.2-5.4) K/mm3 D-Dimer (0-234) ng/mlDDU POC ABG pCO2 (32.0-48.0) mmHg ABG Sodium (136.0-145.0) mmol/L ABG Chloride (98-107) mmol/L ABG Glucose (65-95) mg/dL Carboxyhemoglobin (0.5-1.5) Sodium (137-145) mmol/L Potassium 3.4 L (3.6-5.0) mmol/L Carbon Dioxide 12 L (22-30) mmol/L BUN 6 L (7-17) mg/dL Glucose (65-100) mg/dL Total Bilirubin (0.1-1.2) mg/dL Alkaline Phosphatase (35-129) units/L Lactate Dehydrogenase (91-180) units/L C-Reactive Protein (0.00-1.30) mg/dL Albumin (3.9-5) g/dL Arterial Blood Glucose (65-95) mg/dL All other labs normal. Assessment and Plan 33-week intrauterine possible early labor. Possible Covid bilateral pneumonia. Treat the pneumonia and the Covid infection per infectious disease and hospitalist. If the patient shows evidence of labor the patient will probably be delivered vaginally.
[2021-07-31] MEDS ORDERED: LIDOCAINE (2%) 20 MG/1 ML VIAL 20 ML MDV INFILTRATI ONE (13:30)
--- NOTE | 2021-07-31 13:39 | Consultation ---
History of Present Illness Consult date: 07/31/21 Requesting physician: FELIBERTO BROWER Reason for consult: pneumonia, other (COVID-19 infection) History of present illness: PULMONARY/CCM CONSULT NOTE (Full dictation # [id number]) Please see dictated notes for full details Past History Past Medical History: other (Obesity, 32 weeks ) Social history: single Medications and Allergies Allergies Allergy/AdvReac Type Severity Reaction Status Date / Time Penicillins Allergy Hives Verified 10/07/19 11:12 Home Medications Medication Instructions Recorded Confirmed Last Taken Type Vitamin 1 tab PO QDAY 10/12/19 10/12/19 10/10/19 History Active Meds: Active Medications Acetaminophen (Acetaminophen 325 Mg Tab) 650 mg PO Q4H PRN PRN Reason: Pain, Mild (1-3) Albuterol (Albuterol 2.5 Mg/3 Ml Nebu) 2.5 mg IH Q4HRT PRN PRN Reason: Shortness Of Breath Albuterol/Ipratropium (Ipratropium/Albuterol Sulfate 3 Ml Ampul.Neb) 1 ampul IH Q6HRT [facility] Last Admin: 07/31/21 11:01 Dose: Not Given Documented by: Carboprost Tromethamine (Carboprost Tromethamine 250 Mcg/1 Ml Inj) 250 mcg IM ONCE PRN PRN Reason: Uterine Bleeding Ephedrine Sulfate (Ephedrine Sulfate 50 Mg/1 Ml Inj) 10 mg IV Q2M PRN PRN Reason: Hypotension Famotidine (Famotidine 20 Mg Tab) 20 mg PO BID L[facility]I Fentanyl (Fentanyl 100 Mcg/2 Ml Inj) 100 mcg IV Q2H PRN PRN Reason: Pain,Severe (7-10) LABOR PAIN Heparin Sodium (Porcine) (Heparin 5,000 Unit/1 Ml Vial) 5,000 unit SUB-Q Q12HR [facility] Sodium Bicarbonate 100 meq/ (Sterile Water) 1,100 mls @ 100 mls/hr IV DIRECT [facility] Last Admin: 07/31/21 00:48 Dose: 100 mls/hr Documented by: Azithromycin (Zithromax/Ns) 500 mg in 250 mls @ 250 mls/hr IV Q24HR [facility]; Protocol Oxytocin/Sodium Chloride (Pitocin/Ns 30 Unit/500ml) 30 units in 500 mls @ 2 mls/hr IV TITR [facility]; Protocol Lactated Ringer's (Lactated Ringers) 1,000 mls @ 125 mls/hr IV DIRECT [facility] Oxytocin/Sodium Chloride (Pitocin/Ns 30 Unit/500ml) 30 units in 500 mls @ 40 mls/hr IV TITR [facility]; Protocol Loperamide HCl (Loperamide 2 Mg Cap) 2 mg PO ONCE PRN PRN Reason: give with Hemabate Methylergonovine Maleate (Methylergonovine Maleate 0.2 Mg/Ml Vial) 0.2 mg IM ONCE PRN PRN Reason: Uterine Bleeding Mineral Oil (Mineral Oil 30 Ml Oral Liqd) 30 ml PO QHS PRN PRN Reason: Constipation Misoprostol (Misoprostol 200 Mcg Tab) 800 mcg IN ONCE PRN PRN Reason: Uterine Bleeding Multivitamins/Iron/Calcium ( [id number] Fumarate-Folic Acid Vit Tab) 1 each PO DAILY [facility] Nalbuphine HCl (Nalbuphine 10 Mg/1 Ml Inj) 10 mg IV Q2H PRN PRN Reason: Pain, Moderate (4-6) Ondansetron HCl (Ondansetron 4 Mg/2 Ml Inj) 4 mg IV Q8H PRN PRN Reason: Nausea And Vomiting Last Admin: 07/31/21 13:02 Dose: 4 mg Documented by: Oxycodone/Acetaminophen (Oxycodone /Acetaminophen 5-325mg Tab) 1 tab PO Q6H PRN PRN Reason: Pain, Moderate (4-6) Oxytocin (Oxytocin 10 Unit/1 Ml Inj) 10 unit IM ONCE PRN PRN Reason: Uterine Bleeding Sodium Chloride (Sodium Chloride 0.9% 10 Ml Flush Syringe) 10 ml IV BID LACI Sodium Chloride (Sodium Chloride 0.9% 10 Ml Flush Syringe) 10 ml IV PRN PRN PRN Reason: LINE FLUSH Terbutaline Sulfate (Terbutaline 1 Mg/1 Ml Inj) 0.25 mg SUB-Q ONCE PRN PRN Reason: Hyperstimulation/Hypertonicity Physical Examination Vital signs: Vital Signs Temp Pulse Resp BP Pulse Ox 97.4 F L 122 H 19 118/82 94 07/30/21 16:53 07/30/21 16:53 07/30/21 16:53 07/30/21 16:53 07/30/21 16:53 Results - Laboratory Findings CBC and BMP: 07/31/21 04:13 07/31/21 04:13 ABG ABG pH 7.355 (7.320-7.450) 07/30/21 20:35 POC ABG pCO2 18.0 mmHg (32.0-48.0) L 07/30/21 20:35 POC ABG pO2 88.2 mmHg (83-108) 07/30/21 20:35 POC ABG HCO3 9.8 07/30/21 20:35 ABG O2 Saturation 96.3 (0-100) 07/30/21 20:35 PT/INR, D-dimer D-Dimer 968.21 ng/mlDDU (0-234) H 07/30/21 18:48 Abnormal lab findings: Abnormal Labs 07/30/21 07/30/21 07/30/21 17:43 17:43 17:43 RBC 5.19 H MCV 72 L MCH 23 L RDW 18.1 H Seg Neuts % (Manual) 89.0 H Lymphocytes % (Manual) 8.0 L Nucleated RBC % 1.0 H Seg Neutrophils # Man 9.3 H Lymphocytes # (Manual) 0.8 L D-Dimer 984.89 H POC ABG pCO2 ABG Sodium ABG Chloride ABG Glucose Carboxyhemoglobin Sodium 135 L Potassium 3.4 L Carbon Dioxide 8 L* BUN 5 L Glucose 116 H Total Bilirubin 2.10 H Alkaline Phosphatase 189 H Lactate Dehydrogenase C-Reactive Protein Albumin 3.1 L Arterial Blood Glucose 07/30/21 07/30/21 07/30/21 18:48 18:48 20:35 RBC MCV MCH RDW Seg Neuts % (Manual) Lymphocytes % (Manual) Nucleated RBC % Seg Neutrophils # Man Lymphocytes # (Manual) D-Dimer 968.21 H POC ABG pCO2 18.0 L ABG Sodium 135.3 L ABG Chloride 108.0 H ABG Glucose 101 H Carboxyhemoglobin 0.4 L Sodium Potassium Carbon Dioxide BUN Glucose 115 H Total Bilirubin Alkaline Phosphatase Lactate Dehydrogenase 272 H C-Reactive Protein 10.00 H Albumin Arterial Blood Glucose 101 H 07/31/21 07/31/21 04:13 04:13 RBC MCV 71 L MCH 24 L RDW 18.3 H Seg Neuts % (Manual) 86.0 H Lymphocytes % (Manual) 7.0 L Nucleated RBC % 2.0 H Seg Neutrophils # Man 8.2 H Lymphocytes # (Manual) 0.7 L D-Dimer POC ABG pCO2 ABG Sodium ABG Chloride ABG Glucose Carboxyhemoglobin Sodium Potassium 3.4 L Carbon Dioxide 12 L BUN 6 L Glucose Total Bilirubin Alkaline Phosphatase Lactate Dehydrogenase C-Reactive Protein Albumin Arterial Blood Glucose
--- NOTE | 2021-07-31 14:36 | Progress Note ---
Assessment and Plan Assessment and plan: (1) Suspected COVID-19 virus infection Current Visit: Yes Status: Acute Plan to address problem: Admit the patient to the IMCU. Oxygen per nasal penetrator per minute. DuoNeb by nebulizer every 4 hours. Albuterol via nebulizer every 4 hours as needed. Dexamethasone 6 mg IV daily. Zithromax 500 mg IV daily. We do the blood cultures sputum culture. Follow Covid PCR and Covid inflammatory marker. We wi ll consult infectious disease evaluation. We also consult pulmonary evaluation (2) Pneumonia Current Visit: Yes Status: Acute Plan to address problem: Oxygen per nasal penetrator per minute. DuoNeb by nebulizer every 4 hours. Albuterol via nebulizer every 4 hours as needed. Dexamethasone 6 mg IV daily. Zithromax 500 mg IV daily. We do the blood cultures sputum culture. Follow Covid PCR and Covid inflammatory marker. We will consult infectious disease evaluation. We also consult pulmonary evaluation (3) 32 weeks gestation of Current Visit: Yes Status: Acute Plan to address problem: Patient already seen and evaluated by FORESTRY TECHNICAL OFFICER doctor in the emergency room. We follow the recommendation. We will put the patient on 1 tablet p.o. daily. Monitor the patient closely (4) Obesity Current Visit: Yes Status: Acute Plan to address problem: Patient is counseled regarding weight reduction after (5) Metabolic acidosis Current Visit: Yes Status: Acute Plan to address problem: We'll put the patient on bicarb drip. Will consult pulmonary and critical care evaluation. We recheck the BMP in the morning. We'll monitor the patient closely (6) DVT prophylaxis Current Visit: Yes Status: Acute Plan to address problem: Heparin 5000 units subcu every 8 hours for DVT prophylaxis. Pepcid 20 mg p.o. twice daily for GI prophylaxis. Patient is a full code Patient was admitted for suspected Covid. Covid test is pending. Patient is 32 weeks and she should not be admitted to hospitalist service in the first place. Patient was not on oxygen. Patient was complaining of vaginal pressure. WIRE HARNESS DESIGN ENGINEER was notified and asked to transfer the patient. Patient has metabolic acidosis and on bicarb drip. Patient was placed on dexamethasone and Zithromax. Zithromax can be discontinued if procalcitonin level is normal. ID and pulmonary is consulted. I will sign off please give me a call if there is questions. History Interval history: Patient was seen and evaluated this morning Patient does have shortness of breath or chest pain Patient was complaining of vaginal pressure sensation Hospitalist Physical - Physical exam Narrative exam: Not in cardiopulmonary distress. The patient is morbidly obese. Vital signs as documented. Head exam is unremarkable. No scleral icterus . Neck is without jugular venous distension, thyromegaly, or carotid bruits. Lungs are clear to auscultation. Cardiac exam reveals regular rate and Rhythm. Abdominal exam reveals normal bowel sounds, nontender, no organomegaly. Extremities are nonedematous and both femoral and pedal pulses are normal. DIRECTOR OF PHYSICAL SECURITY: Alert and oriented 3. No focal weakness. - Constitutional Vitals: Temp Pulse Resp BP Pulse Ox 97.4 F L 100 H 33 H 121/66 97 07/30/21 16:53 07/31/21 14:29 07/31/21 11:45 07/31/21 14:21 07/31/21 14:29 General appearance: Present: no acute distress, well-nourished Results - Labs CBC & Chem 7: 07/31/21 04:13 07/31/21 04:13 Labs: Laboratory Last Values WBC 9.5 K/mm3 (4.5-11.0) 07/31/21 04:13 RBC 4.82 M/mm3 (3.65-5.03) 07/31/21 04:13 Hgb 11.3 gm/dl (10.1-14.3) 07/31/21 04:13 Hct 34.4 % (30.3-42.9) 07/31/21 04:13 MCV 71 fl (79-97) L 07/31/21 04:13 MCH 24 pg (28-32) L 07/31/21 04:13 MCHC 33 % (30-34) 07/31/21 04:13 RDW 18.3 % (13.2-15.2) H 07/31/21 04:13 Plt Count 306 K/mm3 (140-440) 07/31/21 04:13 Add Manual Diff Complete 07/31/21 04:13 Total Counted 100 07/31/21 04:13 Seg Neuts % (Manual) 86.0 % (40.0-70.0) H 07/31/21 04:13 Lymphocytes % (Manual) 7.0 % (13.4-35.0) L 07/31/21 04:13 Monocytes % (Manual) 3.0 % (0.0-7.3) 07/31/21 04:13 Metamyelocytes % 1.0 % 07/31/21 04:13 Myelocytes % 3.0 % 07/31/21 04:13 Nucleated RBC % 2.0 % (0.0-0.9) H 07/31/21 04:13 Seg Neutrophils # Man 8.2 K/mm3 (1.8-7.7) H 07/31/21 04:13 Band Neutrophils # 0.0 K/mm3 07/31/21 04:13 Lymphocytes # (Manual) 0.7 K/mm3 (1.2-5.4) L 07/31/21 04:13 Abs React Lymphs (Man) 0.0 K/mm3 07/31/21 04:13 Monocytes # (Manual) 0.3 K/mm3 (0.0-0.8) 07/31/21 04:13 Eosinophils # (Manual) 0.0 K/mm3 (0.0-0.4) 07/31/21 04:13 Basophils # (Manual) 0.0 K/mm3 (0.0-0.1) 07/31/21 04:13 Metamyelocytes # 0.1 K/mm3 07/31/21 04:13 Myelocytes # 0.3 K/mm3 07/31/21 04:13 Promyelocytes # 0.0 K/mm3 07/31/21 04:13 Blast Cells # 0.0 K/mm3 07/31/21 04:13 WBC Morphology Not Reportable 07/31/21 04:13 Hypersegmented Neuts Not Reportable 07/31/21 04:13 Hyposegmented Neuts Not Reportable 07/31/21 04:13 Hypogranular Neuts Not Reportable 07/31/21 04:13 Smudge Cells Not Reportable 07/31/21 04:13 Toxic Granulation Not Reportable 07/31/21 04:13 Toxic Vacuolation Not Reportable 07/31/21 04:13 Dohle Bodies Not Reportable 07/31/21 04:13 Pelger-Huet Anomaly Not Reportable 07/31/21 04:13 Finesse Rods Not Reportable 07/31/21 04:13 Platelet Estimate Consistent w auto 07/31/21 04:13 Clumped Platelets Not Reportable 07/31/21 04:13 Plt Clumps, EDTA Not Reportable 07/31/21 04:13 Large Platelets Not Reportable 07/31/21 04:13 Giant Platelets Not Reportable 07/31/21 04:13 Platelet Satelliting Not Reportable 07/31/21 04:13 Plt Morphology Comment Not Reportable 07/31/21 04:13 RBC Morphology Not Reportable 07/31/21 04:13 Dimorphic RBCs Not Reportable 07/31/21 04:13 Polychromasia Not Reportable 07/31/21 04:13 Hypochromasia 1+ 07/31/21 04:13 Poikilocytosis Not Reportable 07/31/21 04:13 Anisocytosis Not Reportable 07/31/21 04:13 Microcytosis Not Reportable 07/31/21 04:13 Macrocytosis Not Reportable 07/31/21 04:13 Spherocytes Not Reportable 07/31/21 04:13 Pappenheimer Bodies Not Reportable 07/31/21 04:13 Sickle Cells Not Reportable 07/31/21 04:13 Target Cells Not Reportable 07/31/21 04:13 Tear Drop Cells Not Reportable 07/31/21 04:13 Ovalocytes Not Reportable 07/31/21 04:13 Helmet Cells Not Reportable 07/31/21 04:13 [place] Bodies Not Reportable 07/31/21 04:13 [place] Rings Not Reportable 07/31/21 04:13 [place] Cells Not Reportable 07/31/21 04:13 Bite Cells Not Reportable 07/31/21 04:13 Crenated Cell Not Reportable 07/31/21 04:13 Elliptocytes Not Reportable 07/31/21 04:13 Acanthocytes (Spur) Not Reportable 07/31/21 04:13 Rouleaux Not Reportable 07/31/21 04:13 Hemoglobin C Crystals Not Reportable 07/31/21 04:13 Schistocytes Not Reportable 07/31/21 04:13 Malaria parasites Not Reportable 07/31/21 04:13 Mayur Bodies Not Reportable 07/31/21 04:13 Hem Pathologist Commnt No 07/31/21 04:13 D-Dimer 968.21 ng/mlDDU (0-234) H 07/30/21 18:48 ABG pH 7.355 (7.320-7.450) 07/30/21 20:35 POC ABG pCO2 18.0 mmHg (32.0-48.0) L 07/30/21 20:35 POC ABG pO2 88.2 mmHg (83-108) 07/30/21 20:35 POC ABG HCO3 9.8 07/30/21 20:35 ABG O2 Saturation 96.3 (0-100) 07/30/21 20:35 POC ABG Base Excess -13.3 07/30/21 20:35 ABG Hemoglobin 12.3 (12.0-17.5) 07/30/21 20:35 ABG Oxyhemoglobin 95.6 (94-98) 07/30/21 20:35 ABG Methemoglobin 0.3 (0.0-1.5) 07/30/21 20:35 ABG Sodium 135.3 mmol/L (136.0-145.0) L 07/30/21 20:35 ABG Potassium 3.5 mmol/L (3.40-4.50) 07/30/21 20:35 ABG Chloride 108.0 mmol/L (98-107) H 07/30/21 20:35 ABG Glucose 101 mg/dL (65-95) H 07/30/21 20:35 Carboxyhemoglobin 0.4 (0.5-1.5) L 07/30/21 20:35 FiO2 % 21.0 07/30/21 20:35 Sodium 137 mmol/L (137-145) 07/31/21 04:13 Potassium 3.4 mmol/L (3.6-5.0) L 07/31/21 04:13 Chloride 100.7 mmol/L (98-107) 07/31/21 04:13 Carbon Dioxide 12 mmol/L (22-30) L 07/31/21 04:13 Anion Gap 28 mmol/L 07/31/21 04:13 BUN 6 mg/dL (7-17) L 07/31/21 04:13 Creatinine 0.9 mg/dL (0.6-1.2) 07/31/21 04:13 Estimated GFR > 60 ml/min 07/31/21 04:13 BUN/Creatinine Ratio 7 % 07/31/21 04:13 Glucose 97 mg/dL (65-100) 07/31/21 04:13 Calcium 9.4 mg/dL (8.4-10.2) 07/31/21 04:13 Ferritin 92.0 ng/mL (10.0-200.0) 07/30/21 18:48 Total Bilirubin 2.10 mg/dL (0.1-1.2) H 07/30/21 17:43 AST 19 units/L (5-40) 07/30/21 17:43 ALT 9 units/L (7-56) 07/30/21 17:43 Alkaline Phosphatase 189 units/L (35-129) H 07/30/21 17:43 Lactate Dehydrogenase 272 units/L (91-180) H 07/30/21 18:48 C-Reactive Protein 10.00 mg/dL (0.00-1.30) H 07/30/21 18:48 Total Protein 8.2 g/dL (6.3-8.2) 07/30/21 17:43 Albumin 3.1 g/dL (3.9-5) L 07/30/21 17:43 Albumin/Globulin Ratio 0.6 % 07/30/21 17:43 Arterial Blood Glucose 101 mg/dL (65-95) H 07/30/21 20:35 Arterial Blood Ionized Calcium 4.7 mg/dL (4.6-5.3) 07/30/21 20:35 Active Medications - Current Medications Current Medications: Generic Name Dose Route Start Last Admin Trade Name Freq PRN Reason Stop Dose Admin Acetaminophen 650 mg 07/31/21 12:37 Acetaminophen 325 Mg Tab PO Q4H PRN Pain, Mild (1-3) Albuterol 2.5 mg 07/30/21 23:50 Albuterol 2.5 Mg/3 Ml Nebu IH Q4HRT PRN Shortness Of Breath Albuterol/Ipratropium 1 ampul 07/31/21 02:00 07/31/21 11:01 Ipratropium/Albuterol Sulfate 3 Ml Ampul.Neb IH Not Given Q6HRT [facility] Carboprost Tromethamine 250 mcg 07/31/21 12:37 Carboprost Tromethamine 250 Mcg/1 Ml Inj IM ONCE PRN Uterine Bleeding Ephedrine Sulfate 10 mg 07/31/21 12:37 Ephedrine Sulfate 50 Mg/1 Ml Inj IV Q2M PRN Hypotension Famotidine 20 mg 07/31/21 10:00 Famotidine 20 Mg Tab PO BID LACI Fentanyl 100 mcg 07/31/21 12:37 Fentanyl 100 Mcg/2 Ml Inj IV Q2H PRN Pain,Severe (7-10) [facility] Heparin Sodium (Porcine) 5,000 unit 07/31/21 10:00 Heparin 5,000 Unit/1 Ml Vial SUB-Q Q12HR [facility] Sodium Bicarbonate 100 meq/ 1,100 mls @ 100 mls/hr 07/30/21 23:50 07/31/21 00:48 Sterile Water IV 100 mls/hr DIRECT LACI Administration Azithromycin 500 mg in 250 mls @ 250 mls/hr 07/31/21 10:00 Zithromax/Ns IV Q24HR [facility] Protocol Oxytocin/Sodium Chloride 30 units in 500 mls @ 2 mls/hr 07/31/21 13:00 Pitocin/Ns 30 Unit/500ml IV TITR [facility] Protocol Lactated Ringer's 1,000 mls @ 125 mls/hr 07/31/21 12:45 Lactated Ringers IV DIRECT LACI Oxytocin/Sodium Chloride 30 units in 500 mls @ 40 mls/hr 07/31/21 13:00 Pitocin/Ns 30 Unit/500ml IV TITR [facility] Protocol Loperamide HCl 2 mg 07/31/21 12:37 Loperamide 2 Mg Cap PO ONCE PRN give with Hemabate Methylergonovine Maleate 0.2 mg 07/31/21 12:37 Methylergonovine Maleate 0.2 Mg/Ml Vial IM ONCE PRN Uterine Bleeding Mineral Oil 30 ml 07/31/21 12:37 Mineral Oil 30 Ml Oral Liqd PO QHS PRN Constipation Misoprostol 800 mcg 07/31/21 12:37 Misoprostol 200 Mcg Tab OH ONCE PRN Uterine Bleeding Multivitamins/Iron/Calcium 1 each 07/31/21 10:00 [id number] Fumarate-Folic Acid Vit Tab PO DAILY LACI Nalbuphine HCl 10 mg 07/31/21 12:37 Nalbuphine 10 Mg/1 Ml Inj IV Q2H PRN Pain, Moderate (4-6) Ondansetron HCl 4 mg 07/30/21 23:50 07/31/21 13:02 Ondansetron 4 Mg/2 Ml Inj IV 4 mg Q8H PRN Administration Nausea And Vomiting Oxycodone/Acetaminophen 1 tab 07/30/21 23:50 Oxycodone /Acetaminophen 5-325mg Tab PO Q6H PRN Pain, Moderate (4-6) Oxytocin 10 unit 07/31/21 12:37 Oxytocin 10 Unit/1 Ml Inj IM ONCE PRN Uterine Bleeding Sodium Chloride 10 ml 07/31/21 10:00 Sodium Chloride 0.9% 10 Ml Flush Syringe IV BID LACI Sodium Chloride 10 ml 07/30/21 23:50 Sodium Chloride 0.9% 10 Ml Flush Syringe IV PRN PRN LINE FLUSH Terbutaline Sulfate 0.25 mg 07/31/21 12:37 Terbutaline 1 Mg/1 Ml Inj SUB-Q ONCE PRN Hyperstimulation/Hypertonicity
[2021-07-31] MEDS ORDERED: AMPICILLIN/NS 1 GM/50 ML 1 GM/50 ML BAG IV SCH ×2 (17:00→19:00)
--- NOTE | 2021-07-31 17:08 | Ultrasound Report ---
ULTRASOUND OBSTETRIC INDICATION / CLINICAL INFORMATION: r/o ptl. Clinical Gestational Age (GA) in weeks, days: 33, 1 TECHNIQUE: Transabdominal. COMPARISON: None available. FINDINGS: Single intrauterine . Biparietal Diameter = 8.6 cm = 34, weeks, days Head Circumference = 30 1. cm = 34, 5 weeks, days Abdominal Circumference = 3.7 cm = before, weeks, days Femur Length = 7.3 cm = 37, 3 weeks, days Average Ultrasound Age (AUA) = 35, 3 weeks, days Heart Rate: 156 beats per minute. Estimated Weight in grams (if calculated): 2674 Estimated Weight Growth Percentile (if calculated): 96 Position: cephalic. Cervix: closed. Length in cm (if measured): Not measured Placenta: Anterior/fundal. Amniotic Fluid Volume: normal Amniotic Fluid Index (YENI) in cm (if calculated): 8.5. BREATHING MOVEMENT = 0 GROSS BODY MOVEMENT = 2 TONE = 2 QUALITATIVE AMNIOTIC FLUID VOLUME = 2 TOTAL BIOPHYSICAL SCORE = 6/8 IMPRESSION: 1. Single, living intrauterine with estimated sonographic age of 35, 3 weeks, days. 2. Biophysical profile score of 6/8 Signer Name: Amado Calixto MD Signed: 07/31/2021 5:04 PM Workstation Name: [id number]
[2021-07-31] MEDS ORDERED: ACETAMINOPHEN 500 MG TAB PO PRN (19:04)
--- NOTE | 2021-07-31 23:07 | Event Note ---
Date: 07/31/21 nurse called and asked if pt can have intermittent monitoring. Pt currently with FHR 160-170's earlier and tylenol ordered not yet given. pt also to get vanco every 12hrs with PCN ordered earlier and pt with allergy. Pt to remain on continuous monitoring until category I tracing resumed. Appreciate hospitalist and ID team. Pt still with irregular contractions. Await APA consult in the am. Pt has received 1 dose of betamethasone.
[2021-07-31] MEDS: HEPARIN 5,000 UNIT/1 ML VIAL SUB-Q SCH (23:18)
[2021-07-31] MEDS: FAMOTIDINE 20 MG TAB PO SCH (23:23)
[2021-08-01] MEDS: LACTATED RINGERS 1,000 ML IV SCH ×2 (01:01→09:20)
[2021-08-01] MEDS: VANCOMYCIN/NS 1 GM/250 ML 1 GM/250 ML BAG IV SCH ×2 (01:15→22:28)
[2021-08-01] MEDS ORDERED: ONDANSETRON 4 MG/2 ML INJ ONE (05:30)
[2021-08-01] MEDS ORDERED: PHENYLEPHRINE/NS 1,000 MCG/10 ML SYRINGE (OR USE) IV ONE (05:30)
[2021-08-01] MEDS ORDERED: KETOROLAC 30 MG/1 ML INJ ONE (05:30)
--- NOTE | 2021-08-01 05:48 | Anesthesia Day of Surgery ---
Anesthesia Day of Surgery - Day of Surgery Patient Examined: Yes Patient H&P Reviewed: Yes Patient is NPO: Yes Beta Blockers: No Cardiac Clearance: No Pulmonary Clearance: No Reza's Test: Negative
--- NOTE | 2021-08-01 06:54 | Consultation ---
DATE OF CONSULTATION: 07/31/2021 PULMONARY CONSULT NOTE CONSULTING PHYSICIAN: Dr. Keene. REASON FOR CONSULTATION: COVID-19 infection, pneumonia. CHIEF COMPLAINT AND HISTORY OF PRESENT ILLNESS: As follows: The patient is a now 31-year-old obese female, , 32 weeks' , according to the patient, went into the Emergency Room because of progressive shortness of breath that had been going on for about 3 days. It was associated with a cough. It was productive mostly of clear phlegm. She denied gross or streaky hemoptysis. She denied any significant chest pain. She denied any history of PE or DVT. She denied any significant bleeding during this and certainly denied any vaginal bleeding. She denies any new-onset leg pain or swelling. She was evaluated in the Emergency Room. She denied known contact with anybody positive for COVID-19 infection. She did admit to not been vaccinated against COVID-19. A CT angiogram of the chest was done, which showed no PE. I should mention she did complain of some pleuritic pain, mostly in the subcostal region with coughing. It also revealed bilateral pulmonary infiltrates consistent with her pneumonia and a diagnosis of COVID-19. She has been evaluated by the PLATE TAKE OUT WORKER physician and there were no plans for immediate delivery. We are asked to assist with management. When I stopped by to see her, she was getting ultrasound of the abdomen done; however, was very restless with episodes of dry heaves mostly. She said she just felt uncomfortable. When asked about tobacco use or abuse history, she denies any history of tobacco use. This really is as much of the history of presentation as I have. PAST MEDICAL HISTORY: Obesity. PAST SURGICAL HISTORY: Denies. MEDICATIONS: She was on at the time I stopped by to see her, according to the medication administration record included the following: She was on Tylenol 650 mg p.o. q. 4 hours p.r.n. mild pain or fevers, albuterol nebulizer treatments 2.5 mg nebulized q. 4 hours p.r.n. shortness of breath. She also has scheduled DuoNeb treatments every 6 hours. She has a carboprost tromethamine 250 mg IM once p.r.n. uterine bleeding. She also has some ephedrine sulfate p.r.n. hypotension, Pepcid 20 mg p.o. b.i.d., fentanyl 100 mg IV q. 12 hours p.r.n. severe pain, heparin 5000 units subcutaneous q. 12 hours. She was on sodium bicarbonate in sterile water 100 mEq per liter at 100 mL per hour, azithromycin 500 mg IV q. 24 hours or daily, methylergometrine maleate 0.2 mg IM once p.r.n. uterine bleeding, p.r.n. misoprostol, daily multivitamins, 1 tab multivitamin 1 tablet p.o. daily, Zofran 4 mg IV q. 8 hours p.r.n. nausea and vomiting, Percocet 5/325 mg 1 tablet p.o. q. 6 hours p.r.n. moderate pain and p.r.n. terbutaline sulfate. ALLERGIES: PENICILLIN. Nature of this allergy is unknown. DIET: Obese lady. She has gained weight appropriately during . FAMILY AND SOCIAL HISTORY: Denies alcohol, tobacco, or illicit drug use or abuse. FAMILY HISTORY: Otherwise, noncontributory. REVIEW OF SYSTEMS: A little difficult to obtain secondary to the patient's medical and mental condition. She denies gross hematochezia or melena. Denies gross hematuria or dysuria. No hematemesis, no hemoptysis. She has had episodes of emesis as well as dry heaving. She denies heat or cold intolerance. Denies polydipsia. Denies polyuria. Complete 13-system review of systems obtained. Pertinent positives and/or negatives as in body of history above, otherwise they are noncontributory.. PHYSICAL EXAMINATION: VITAL SIGNS: At presentation and really since, she has been afebrile, presentation temperature 97.4 degrees Fahrenheit, pulse of 122, respiratory rate of as high as 39. At initial presentation, blood pressure 118/82, O2 sats were at the time I saw her 99% and that was on room air. GENERAL: She is a young, obese female. Normocephalic, atraumatic. Resting in bed with mildly increased respiratory effort at rest. HEAD, EYES, EARS, NOSE, AND THROAT: Anicteric. No conjunctival erythema. Oropharynx was moist. No gross jugular venous distention. No thyromegaly. Grossly, there were no palpable lymph nodes in the supraclavicular or submandibular lymph node chains. LUNGS: Auscultation of both lung white are really unremarkable except for slightly diminished bibasilar air entry. No active wheezing. HEART: Sounds 1 and 2 are heard, regular rate and rhythm at the time of my evaluation with a mild tachycardia. No rubs or murmurs. ABDOMEN: Soft, full, protuberant, a gravid uterus. Bowel sounds are positive, nontender, no palpable hepatosplenomegaly. EXTREMITIES: Without overt digital clubbing or cyanosis. No pedal edema. Pedal pulses are 2+ bilaterally. NEUROLOGIC: Pupils were equal, round, about 4 mm, reactive to light. Extraocular muscles and movements were intact. She moves all 4 extremities spontaneously. SKIN: Normal turgor in the areas examined without overt cellulitis or rash. PSYCHIATRIC: Mood was normal. Affect was anxious. She had intact judgment and insight. LABORATORY DATA: From my review are as follows: Admission white cell count 10,400, hemoglobin 12.0, hematocrit 37.4, platelet count 328. No band forms on the manual differential. D-dimer was up 968. Arterial blood gas showed a pH of 7.36, pCO2 of 18, pO2 of 88 that was on room air. Serum sodium was 135, potassium 3.4, chloride was 101, bicarbonate was 8, BUN was 5, creatinine was 0.8, and glucose was 115. Total bilirubin was up at 2.1. Liver function test within normal limits. LDH 272. CRP was 10.0. Coronavirus PCR has come back positive. Syphilis IgG antibody pending. No microbiologic specimens. CT angiogram again negative for PE. It did show patchy bilateral infiltrates/ground glass opacifications really consistent with a viral/COVID-19 pneumonitis. Chest x-ray also shows bibasilar predominant infiltrates. ultrasound was being done at the time of my evaluation, estimated age sonographic earlier about 35 weeks. ASSESSMENT: 1. Acute respiratory distress. 2. Bilateral pneumonia. 3. COVID-19 infection. 4. Gravid status. 5. Obesity. 6. Elevated serum inflammatory markers to include D-dimers, CRP, and LDH levels. 7. Chest pain. 8. Metabolic acidosis with adequate respiratory compensation. PLAN: Supplemental oxygen will be offered as necessary to keep sats greater than or equal to about 92%. Aspiration precautions will be maintained. No acute indication at this point for remdesivir therapy and/or really systemic steroids. She is on room air. We will watch her closely. She has been evaluated by Infectious Disease and I wish to take treatment if she meets criteria, otherwise I will defer to the [employer]ATE [employer] WORK[employer] team for determination of the time for delivery. Of note, VTE workup is negative so far; however, I will get bilateral lower extremity Dopplers to complete the workup. She is on DVT prophylaxis and GI prophylaxis appropriately. Flu and pneumonia vaccination will be addressed per protocol. I do agree with empiric community-acquired pneumonia therapy. With her PENICILLIN ALLERGY, we will go with only azithromycin at this time and I will defer to the Infectious Disease physician, otherwise. Flu and pneumonia vaccination will be addressed per protocol. Thank you very much for the consult. We will follow along and make further recommendations as picture progresses/becomes clearer. TID: [id number] RECEIPT: [id number] CYNDI/JASPREET/ESTHER
[2021-08-01] MEDS ORDERED: BICITRA ORAL LIQD 30ML ONE (07:43)
[2021-08-01] MEDS ORDERED: FAMOTIDINE 20 MG/2 ML INJ IV ONE ×3 (07:44→11:46)
[2021-08-01] MEDS ORDERED: METOCLOPRAMIDE 10 MG/2 ML INJ ONE ×2 (07:44→11:45)
[2021-08-01] MEDS ORDERED: ceFAZolin/Water 2 GM/20 ML 0 GM/0 ML SYRINGE IV ONE (07:45)
[2021-08-01] MEDS ORDERED: METOCLOPRAMIDE 10 MG/2 ML INJ IV ONE (07:58)
[2021-08-01] MEDS ORDERED: BICITRA ORAL LIQD 30ML PO NR (07:58)
[2021-08-01] MEDS ORDERED: LACTATED RINGERS 1,000 ML IV SCH (08:00)
[2021-08-01] MEDS ORDERED: GENTAMICIN 300 MG in SODIUM CHLORIDE 0.9% 100 ML IV NR (09:00)
[2021-08-01 09:14] LABS: Hematocrit 29.4 % (30.3-42.9); Mean Corpuscular HGB Conc 34 % (30-34); Platelet Count 299 K/mm3 (140-440); Red Blood Count 4.23 M/mm3 (3.65-5.03)
[2021-08-01 09:29] LABS: Mean Corpuscular Volume 70 fl (79-97)
[2021-08-01 09:39] LABS: HCG,Quantitative 8871 mIU/mL (0-4)
--- NOTE | 2021-08-01 09:53 | Progress Note ---
Subjective - Subjective Date of service: 08/01/21 Interval history: COVID pneumonia: stable : delayed steroids on admission-is receiving first dose stat, to repeat in 24 hours Category 2 tracing: not ominous: will give IV fluid bolus, Nifedepine for tocolysis and position change to left lateral with O2 per face mask Will attempt to delay delivery for at least second dose of steroids if possible. Minesh Stout MD Objective - Vital Signs Vital Signs: Vital Signs - 12hr 07/31/21 07/31/21 07/31/21 21:54 21:59 22:04 Temperature Pulse Rate 90 89 91 H Respiratory Rate Blood Pressure Blood Pressure [Left] O2 Sat by Pulse 98 98 98 Oximetry 07/31/21 07/31/21 07/31/21 22:09 22:14 22:19 Temperature Pulse Rate 88 90 90 Respiratory Rate Blood Pressure Blood Pressure [Left] O2 Sat by Pulse 98 98 98 Oximetry 07/31/21 07/31/21 07/31/21 22:24 22:29 22:34 Temperature Pulse Rate 89 90 98 H Respiratory Rate Blood Pressure Blood Pressure [Left] O2 Sat by Pulse 97 98 98 Oximetry 07/31/21 07/31/21 07/31/21 22:39 22:41 22:44 Temperature Pulse Rate 83 100 H 86 Respiratory Rate Blood Pressure 107/69 Blood Pressure [Left] O2 Sat by Pulse 98 99 Oximetry 07/31/21 07/31/21 07/31/21 22:49 22:54 22:59 Temperature Pulse Rate 91 H 97 H 88 Respiratory Rate Blood Pressure Blood Pressure [Left] O2 Sat by Pulse 99 100 99 Oximetry 07/31/21 07/31/21 07/31/21 23:04 23:09 23:14 Temperature Pulse Rate 95 H 94 H 83 Respiratory Rate Blood Pressure Blood Pressure [Left] O2 Sat by Pulse 97 97 98 Oximetry 07/31/21 07/31/21 07/31/21 23:19 23:24 23:29 Temperature Pulse Rate 89 90 92 H Respiratory Rate Blood Pressure Blood Pressure [Left] O2 Sat by Pulse 97 97 100 Oximetry 07/31/21 07/31/21 07/31/21 23:34 23:39 23:41 Temperature Pulse Rate 125 H 88 94 H Respiratory Rate Blood Pressure 117/74 Blood Pressure [Left] O2 Sat by Pulse 98 98 Oximetry 0907/31/21 07/31/21 23:44 23:45 23:49 Temperature 97.9 F Pulse Rate 87 89 Respiratory Rate Blood Pressure Blood Pressure [Left] O2 Sat by Pulse 97 97 Oximetry 07/31/21 07/31/21 08/01/21 23:54 23:59 00:04 Temperature Pulse Rate 82 80 82 Respiratory Rate Blood Pressure Blood Pressure [Left] O2 Sat by Pulse 98 98 98 Oximetry 08/01/21 08/01/21 08/01/21 00:09 00:14 00:19 Temperature Pulse Rate 82 86 81 Respiratory Rate Blood Pressure Blood Pressure [Left] O2 Sat by Pulse 97 99 98 Oximetry 08/01/21 08/01/21 08/01/21 00:24 00:29 00:32 Temperature Pulse Rate 80 84 80 Respiratory Rate Blood Pressure Blood Pressure [Left] O2 Sat by Pulse 98 97 94 Oximetry 08/01/21 08/01/21 08/01/21 00:34 00:39 00:41 Temperature Pulse Rate 86 87 74 Respiratory Rate Blood Pressure 124/64 Blood Pressure [Left] O2 Sat by Pulse 96 97 87 Oximetry 08/01/21 08/01/21 08/01/21 00:44 00:49 00:53 Temperature Pulse Rate 75 87 86 Respiratory Rate Blood Pressure Blood Pressure [Left] O2 Sat by Pulse 97 96 93 Oximetry 08/01/21 08/01/21 08/01/21 00:54 00:59 01:04 Temperature Pulse Rate 90 79 80 Respiratory Rate Blood Pressure Blood Pressure [Left] O2 Sat by Pulse 97 100 97 Oximetry 08/01/21 08/01/21 08/01/21 01:09 01:14 01:19 Temperature Pulse Rate 80 81 83 Respiratory Rate Blood Pressure Blood Pressure [Left] O2 Sat by Pulse 98 98 97 Oximetry 08/01/21 08/01/21 08/01/21 01:24 01:29 01:34 Temperature Pulse Rate 81 78 83 Respiratory Rate Blood Pressure Blood Pressure [Left] O2 Sat by Pulse 99 98 98 Oximetry 08/01/21 08/01/21 08/01/21 01:39 01:41 01:44 Temperature Pulse Rate 82 81 76 Respiratory Rate Blood Pressure 105/65 Blood Pressure [Left] O2 Sat by Pulse 98 99 Oximetry 08/01/21 08/01/21 08/01/21 01:49 01:54 01:59 Temperature Pulse Rate 91 H 93 H 90 Respiratory Rate Blood Pressure Blood Pressure [Left] O2 Sat by Pulse 98 99 98 Oximetry 08/01/21 08/01/21 08/01/21 02:46 02:51 02:56 Temperature Pulse Rate 91 H 79 79 Respiratory Rate Blood Pressure Blood Pressure [Left] O2 Sat by Pulse 100 100 98 Oximetry 08/01/21 08/01/21 08/01/21 03:00 03:01 03:06 Temperature Pulse Rate 75 78 77 Respiratory Rate Blood Pressure 101/66 Blood Pressure [Left] O2 Sat by Pulse 99 100 Oximetry 08/01/21 08/01/21 08/01/21 03:11 03:16 03:21 Temperature Pulse Rate 77 75 77 Respiratory Rate Blood Pressure Blood Pressure [Left] O2 Sat by Pulse 100 100 100 Oximetry 08/01/21 08/01/21 08/01/21 03:26 03:31 03:36 Temperature Pulse Rate 70 77 75 Respiratory Rate Blood Pressure Blood Pressure [Left] O2 Sat by Pulse 100 100 100 Oximetry 08/01/21 08/01/21 08/01/21 03:41 03:46 03:51 Temperature Pulse Rate 74 78 79 Respiratory Rate Blood Pressure 105/63 Blood Pressure [Left] O2 Sat by Pulse 100 99 98 Oximetry 08/01/21 08/01/21 08/01/21 03:56 04:01 04:06 Temperature Pulse Rate 70 79 82 Respiratory Rate Blood Pressure Blood Pressure [Left] O2 Sat by Pulse 99 100 98 Oximetry 08/01/21 08/01/21 08/01/21 04:11 04:13 04:16 Temperature Pulse Rate 78 78 82 Respiratory Rate Blood Pressure Blood Pressure [Left] O2 Sat by Pulse 98 92 95 Oximetry 08/01/21 08/01/21 08/01/21 04:21 04:26 04:31 Temperature Pulse Rate 88 95 H 78 Respiratory Rate Blood Pressure Blood Pressure [Left] O2 Sat by Pulse 98 97 99 Oximetry 08/01/21 08/01/21 08/01/21 04:36 04:41 04:46 Temperature Pulse Rate 86 83 83 Respiratory Rate Blood Pressure 103/65 Blood Pressure [Left] O2 Sat by Pulse 100 98 98 Oximetry 08/01/21 08/01/21 08/01/21 04:51 04:56 05:01 Temperature Pulse Rate 79 76 70 Respiratory Rate Blood Pressure Blood Pressure [Left] O2 Sat by Pulse 98 98 98 Oximetry 08/01/21 08/01/21 08/01/21 05:06 05:11 05:16 Temperature Pulse Rate 72 77 73 Respiratory Rate Blood Pressure Blood Pressure [Left] O2 Sat by Pulse 98 98 98 Oximetry 08/01/21 08/01/21 08/01/21 05:21 05:26 05:31 Temperature Pulse Rate 77 76 71 Respiratory Rate Blood Pressure Blood Pressure [Left] O2 Sat by Pulse 97 97 95 Oximetry 08/01/21 08/01/21 08/01/21 05:36 05:41 05:46 Temperature Pulse Rate 78 76 78 Respiratory Rate Blood Pressure 104/63 Blood Pressure [Left] O2 Sat by Pulse 96 96 96 Oximetry 08/01/21 08/01/21 08/01/21 05:47 05:51 05:56 Temperature Pulse Rate 73 79 77 Respiratory Rate Blood Pressure Blood Pressure [Left] O2 Sat by Pulse 93 97 99 Oximetry 08/01/21 08/01/21 08/01/21 06:01 06:06 06:11 Temperature Pulse Rate 75 73 73 Respiratory Rate Blood Pressure Blood Pressure [Left] O2 Sat by Pulse 99 99 98 Oximetry 08/01/21 08/01/21 08/01/21 06:16 06:21 06:26 Temperature Pulse Rate 73 71 74 Respiratory Rate Blood Pressure Blood Pressure [Left] O2 Sat by Pulse 97 97 97 Oximetry 08/01/21 08/01/21 08/01/21 06:31 06:36 06:41 Temperature Pulse Rate 87 73 80 Respiratory Rate Blood Pressure 96/57 Blood Pressure [Left] O2 Sat by Pulse 96 96 95 Oximetry 08/01/21 08/01/21 08/01/21 06:46 06:51 06:56 Temperature Pulse Rate 75 82 76 Respiratory Rate Blood Pressure Blood Pressure [Left] O2 Sat by Pulse 96 95 96 Oximetry 08/01/21 08/01/21 08/01/21 07:01 07:05 07:06 Temperature Pulse Rate 82 71 74 Respiratory Rate Blood Pressure Blood Pressure [Left] O2 Sat by Pulse 95 92 96 Oximetry 08/01/21 08/01/21 08/01/21 07:11 07:16 07:18 Temperature Pulse Rate 77 78 76 Respiratory Rate Blood Pressure Blood Pressure [Left] O2 Sat by Pulse 95 96 94 Oximetry 08/01/21 08/01/21 08/01/21 07:21 07:24 07:26 Temperature Pulse Rate 78 72 70 Respiratory Rate Blood Pressure Blood Pressure [Left] O2 Sat by Pulse 96 94 96 Oximetry 08/01/21 08/01/21 08/01/21 07:31 07:34 07:36 Temperature Pulse Rate 79 75 82 Respiratory Rate Blood Pressure Blood Pressure [Left] O2 Sat by Pulse 96 94 96 Oximetry 08/01/21 08/01/21 08/01/21 07:40 07:41 07:46 Temperature Pulse Rate 75 83 73 Respiratory Rate Blood Pressure 104/61 Blood Pressure [Left] O2 Sat by Pulse 94 94 96 Oximetry 08/01/21 08/01/21 08/01/21 07:51 07:56 08:01 Temperature Pulse Rate 77 75 75 Respiratory Rate Blood Pressure Blood Pressure [Left] O2 Sat by Pulse 97 98 98 Oximetry 08/01/21 08/01/21 08/01/21 08:03 08:04 08:06 Temperature 97.4 F L Pulse Rate 86 88 78 Respiratory 18 Rate Blood Pressure 108/54 Blood Pressure 108/54 [Left] O2 Sat by Pulse 99 99 Oximetry 08/01/21 08/01/21 08/01/21 08:11 08:16 08:21 Temperature Pulse Rate 84 74 71 Respiratory Rate Blood Pressure Blood Pressure [Left] O2 Sat by Pulse 97 98 98 Oximetry 08/01/21 08/01/21 08/01/21 08:26 08:31 08:36 Temperature Pulse Rate 72 71 73 Respiratory Rate Blood Pressure Blood Pressure [Left] O2 Sat by Pulse 97 98 98 Oximetry 08/01/21 08/01/21 08/01/21 08:41 08:46 08:51 Temperature Pulse Rate 80 83 87 Respiratory Rate Blood Pressure 130/57 Blood Pressure [Left] O2 Sat by Pulse 97 98 97 Oximetry 08/01/21 08/01/21 08/01/21 08:56 09:01 09:06 Temperature 97.8 F Pulse Rate 84 92 H 88 Respiratory Rate Blood Pressure Blood Pressure [Left] O2 Sat by Pulse 99 98 98 Oximetry 08/01/21 08/01/21 08/01/21 09:11 09:16 09:21 Temperature Pulse Rate 77 74 85 Respiratory Rate Blood Pressure Blood Pressure [Left] O2 Sat by Pulse 97 97 98 Oximetry 08/01/21 08/01/21 08/01/21 09:26 09:31 09:36 Temperature Pulse Rate 80 86 79 Respiratory Rate Blood Pressure Blood Pressure [Left] O2 Sat by Pulse 98 97 98 Oximetry 08/01/21 08/01/21 09:41 09:46 Temperature Pulse Rate 88 85 Respiratory Rate Blood Pressure 105/62 Blood Pressure [Left] O2 Sat by Pulse 98 98 Oximetry - Labs Labs: Abnormal Labs 07/30/21 07/30/21 07/30/21 17:43 17:43 17:43 RBC 5.19 H Hgb Hct MCV 72 L MCH 23 L RDW 18.1 H Seg Neuts % (Manual) 89.0 H Lymphocytes % (Manual) 8.0 L Nucleated RBC % 1.0 H Seg Neutrophils # Man 9.3 H Lymphocytes # (Manual) 0.8 L D-Dimer 984.89 H POC ABG pCO2 ABG Sodium ABG Chloride ABG Glucose Carboxyhemoglobin Sodium 135 L Potassium 3.4 L Carbon Dioxide 8 L* BUN 5 L Glucose 116 H Total Bilirubin 2.10 H Alkaline Phosphatase 189 H Lactate Dehydrogenase C-Reactive Protein Albumin 3.1 L HCG, Quant Arterial Blood Glucose Coronavirus (PCR) 07/30/21 07/30/21 07/30/21 18:48 18:48 20:35 RBC Hgb Hct MCV MCH RDW Seg Neuts % (Manual) Lymphocytes % (Manual) Nucleated RBC % Seg Neutrophils # Man Lymphocytes # (Manual) D-Dimer 968.21 H POC ABG pCO2 18.0 L ABG Sodium 135.3 L ABG Chloride 108.0 H ABG Glucose 101 H Carboxyhemoglobin 0.4 L Sodium Potassium Carbon Dioxide BUN Glucose 115 H Total Bilirubin Alkaline Phosphatase Lactate Dehydrogenase 272 H C-Reactive Protein 10.00 H Albumin HCG, Quant Arterial Blood Glucose 101 H Coronavirus (PCR) 07/31/21 07/31/21 07/31/21 04:13 04:13 08:08 RBC Hgb Hct MCV 71 L MCH 24 L RDW 18.3 H Seg Neuts % (Manual) 86.0 H Lymphocytes % (Manual) 7.0 L Nucleated RBC % 2.0 H Seg Neutrophils # Man 8.2 H Lymphocytes # (Manual) 0.7 L D-Dimer POC ABG pCO2 ABG Sodium ABG Chloride ABG Glucose Carboxyhemoglobin Sodium Potassium 3.4 L Carbon Dioxide 12 L BUN 6 L Glucose Total Bilirubin Alkaline Phosphatase Lactate Dehydrogenase C-Reactive Protein Albumin HCG, Quant Arterial Blood Glucose Coronavirus (PCR) Positive A 08/01/21 08/01/21 08:55 08:55 RBC Hgb 10.0 L Hct 29.4 L MCV 70 L MCH 24 L RDW 18.0 H Seg Neuts % (Manual) Lymphocytes % (Manual) Nucleated RBC % Seg Neutrophils # Man Lymphocytes # (Manual) D-Dimer POC ABG pCO2 ABG Sodium ABG Chloride ABG Glucose Carboxyhemoglobin Sodium Potassium Carbon Dioxide BUN Glucose Total Bilirubin Alkaline Phosphatase Lactate Dehydrogenase C-Reactive Protein Albumin HCG, Quant 8871 H Arterial Blood Glucose Coronavirus (PCR) Laboratory Results - last 24 hr 07/31/21 07/31/21 08/01/21 08:08 Unknown 08:55 WBC 6.0 RBC 4.23 Hgb 10.0 L Hct 29.4 L MCV 70 L MCH 24 L MCHC 34 RDW 18.0 H Plt Count 299 HCG, Quant Syphilis IgG Antibody Nonreactive Coronavirus (PCR) Positive A Rubella IgG Antibody 08/01/21 08:55 WBC RBC Hgb Hct MCV MCH MCHC RDW Plt Count HCG, Quant 8871 H Syphilis IgG Antibody Coronavirus (PCR) Rubella IgG Antibody Immune
[2021-08-01] MEDS ORDERED: NIFEdipine*For Tocolysis only* 10 MG CAPSULE PO NR (10:00)
[2021-08-01] MEDS ORDERED: BETAMET ACET/BETAMET NA PH 6 MG/ML INJ 5 ML MDV IM SCH (10:00)
[2021-08-01] MEDS ORDERED: DEXTROSE 5% IN WATER 1,000 ML IV SCH (10:00)
[2021-08-01] MEDS: PRENATAL VIT27-FE FUMARATE-FOLIC ACID VIT TAB PO SCH (10:30)
[2021-08-01 10:31] LABS: Hepatitis C Virus Antibody Non-Reactive (NonReactive)
[2021-08-01] MEDS: AZITHROMYCIN/NS 500 MG/250 ML 500 MG/250 ML BAG IV SCH (10:37)
[2021-08-01] MEDS: FAMOTIDINE 20 MG TAB PO SCH ×2 (10:42→22:35)
[2021-08-01] MEDS ORDERED: D5W/LACTATED RINGERS 1,000 ML IV SCH (11:00)
--- NOTE | 2021-08-01 11:39 | Progress Note ---
Assessment and Plan Cultures: SARS CoV2 PCR: positive A/P: 31-year-old female with obesity, 32 weeks was admitted with shortness of breath, cough : #Bilateral pneumonia: secondary to COVID-19. Patient is not hypoxic. D-dimer 968, CRP 10.0, ferritin 92. #: 32 weeks . #Morbid obesity Recs: -she remains on room air, is not a candidate for any COVID-19 related ther apeutics at this time. No indication for remdesivir or steroids. If she is positive and becomes hypoxic, she has agreed to steroids and remdesivir. -Follow-up procalcitonin, if low, antibiotics not indicated Loco Vincent MD, FACP [facility] O: [phone] F: [phone] Subjective Date of service: 08/01/21 Interval history: Afebrile. Remains on room air. Objective - Exam Narrative Exam: Physical Exam (reviewed in chart to minimize risk of transmission) Constitutional: deferred Head, Ears, Nose: deferred Eyes: deferred Neck: deferred Oral: deferred Cardiovascular: deferred Respiratory: deferred GI: deferred Musculoskeletal: deferred Skin: deferred Hem/Lymphatic: deferred Psych: deferred Neurological: deferred - Constitutional Vitals: Vital Signs Temp Pulse Resp BP Pulse Ox 97.8 F 75 18 109/59 98 08/01/21 09:06 08/01/21 11:36 08/01/21 08:04 08/01/21 10:41 08/01/21 11:36 Temperature -Last 24 Hours Temperature 97.8 F Temperature 97.4 F Temperature 97.9 F Temperature 97.9 F Temperature 99.1 F - Labs CBC & Chem 7: 08/01/21 08:55 07/31/21 04:13 Labs: Abnormal lab results 07/31/21 08/01/21 08/01/21 Range/Units 08:08 08:55 08:55 Hgb 10.0 L (10.1-14.3) gm/dl Hct 29.4 L (30.3-42.9) % MCV 70 L (79-97) fl MCH 24 L (28-32) pg RDW 18.0 H (13.2-15.2) % HCG, Quant 8871 H (0-4) mIU/mL Coronavirus (PCR) Positive A (Negative)
--- NOTE | 2021-08-01 12:04 | Progress Note ---
Subjective - Subjective Date of service: 08/01/21 Interval history: COVID pneumonia: stable Persistent NRFHT: plan for operative delivery. Informed consent Minesh Stout MD Objective - Vital Signs Vital Signs: Vital Signs - 12hr 08/01/21 08/01/21 08/01/21 00:09 00:14 00:19 Temperature Pulse Rate 82 86 81 Respiratory Rate Blood Pressure Blood Pressure [Left] O2 Sat by Pulse 97 99 98 Oximetry 08/01/21 08/01/21 08/01/21 00:24 00:29 00:32 Temperature Pulse Rate 80 84 80 Respiratory Rate Blood Pressure Blood Pressure [Left] O2 Sat by Pulse 98 97 94 Oximetry 08/01/21 08/01/21 08/01/21 00:34 00:39 00:41 Temperature Pulse Rate 86 87 74 Respiratory Rate Blood Pressure 124/64 Blood Pressure [Left] O2 Sat by Pulse 96 97 87 Oximetry 08/01/21 08/01/21 08/01/21 00:44 00:49 00:53 Temperature Pulse Rate 75 87 86 Respiratory Rate Blood Pressure Blood Pressure [Left] O2 Sat by Pulse 97 96 93 Oximetry 08/01/21 08/01/21 08/01/21 00:54 00:59 01:04 Temperature Pulse Rate 90 79 80 Respiratory Rate Blood Pressure Blood Pressure [Left] O2 Sat by Pulse 97 100 97 Oximetry 08/01/21 08/01/21 08/01/21 01:09 01:14 01:19 Temperature Pulse Rate 80 81 83 Respiratory Rate Blood Pressure Blood Pressure [Left] O2 Sat by Pulse 98 98 97 Oximetry 08/01/21 08/01/21 08/01/21 01:24 01:29 01:34 Temperature Pulse Rate 81 78 83 Respiratory Rate Blood Pressure Blood Pressure [Left] O2 Sat by Pulse 99 98 98 Oximetry 08/01/21 08/01/21 08/01/21 01:39 01:41 01:44 Temperature Pulse Rate 82 81 76 Respiratory Rate Blood Pressure 105/65 Blood Pressure [Left] O2 Sat by Pulse 98 99 Oximetry 08/01/21 08/01/21 08/01/21 01:49 01:54 01:59 Temperature Pulse Rate 91 H 93 H 90 Respiratory Rate Blood Pressure Blood Pressure [Left] O2 Sat by Pulse 98 99 98 Oximetry 08/01/21 08/01/21 08/01/21 02:46 02:51 02:56 Temperature Pulse Rate 91 H 79 79 Respiratory Rate Blood Pressure Blood Pressure [Left] O2 Sat by Pulse 100 100 98 Oximetry 08/01/21 08/01/21 08/01/21 03:00 03:01 03:06 Temperature Pulse Rate 75 78 77 Respiratory Rate Blood Pressure 101/66 Blood Pressure [Left] O2 Sat by Pulse 99 100 Oximetry 08/01/21 08/01/21 08/01/21 03:11 03:16 03:21 Temperature Pulse Rate 77 75 77 Respiratory Rate Blood Pressure Blood Pressure [Left] O2 Sat by Pulse 100 100 100 Oximetry 08/01/21 08/01/21 08/01/21 03:26 03:31 03:36 Temperature Pulse Rate 70 77 75 Respiratory Rate Blood Pressure Blood Pressure [Left] O2 Sat by Pulse 100 100 100 Oximetry 08/01/21 08/01/21 08/01/21 03:41 03:46 03:51 Temperature Pulse Rate 74 78 79 Respiratory Rate Blood Pressure 105/63 Blood Pressure [Left] O2 Sat by Pulse 100 99 98 Oximetry 08/01/21 08/01/21 08/01/21 03:56 04:01 04:06 Temperature Pulse Rate 70 79 82 Respiratory Rate Blood Pressure Blood Pressure [Left] O2 Sat by Pulse 99 100 98 Oximetry 08/01/21 08/01/21 08/01/21 04:11 04:13 04:16 Temperature Pulse Rate 78 78 82 Respiratory Rate Blood Pressure Blood Pressure [Left] O2 Sat by Pulse 98 92 95 Oximetry 08/01/21 08/01/21 08/01/21 04:21 04:26 04:31 Temperature Pulse Rate 88 95 H 78 Respiratory Rate Blood Pressure Blood Pressure [Left] O2 Sat by Pulse 98 97 99 Oximetry 08/01/21 08/01/21 08/01/21 04:36 04:41 04:46 Temperature Pulse Rate 86 83 83 Respiratory Rate Blood Pressure 103/65 Blood Pressure [Left] O2 Sat by Pulse 100 98 98 Oximetry 08/01/21 08/01/21 08/01/21 04:51 04:56 05:01 Temperature Pulse Rate 79 76 70 Respiratory Rate Blood Pressure Blood Pressure [Left] O2 Sat by Pulse 98 98 98 Oximetry 08/01/21 08/01/21 08/01/21 05:06 05:11 05:16 Temperature Pulse Rate 72 77 73 Respiratory Rate Blood Pressure Blood Pressure [Left] O2 Sat by Pulse 98 98 98 Oximetry 08/01/21 08/01/21 08/01/21 05:21 05:26 05:31 Temperature Pulse Rate 77 76 71 Respiratory Rate Blood Pressure Blood Pressure [Left] O2 Sat by Pulse 97 97 95 Oximetry 08/01/21 08/01/21 08/01/21 05:36 05:41 05:46 Temperature Pulse Rate 78 76 78 Respiratory Rate Blood Pressure 104/63 Blood Pressure [Left] O2 Sat by Pulse 96 96 96 Oximetry 08/01/21 08/01/21 08/01/21 05:47 05:51 05:56 Temperature Pulse Rate 73 79 77 Respiratory Rate Blood Pressure Blood Pressure [Left] O2 Sat by Pulse 93 97 99 Oximetry 08/01/21 08/01/21 08/01/21 06:01 06:06 06:11 Temperature Pulse Rate 75 73 73 Respiratory Rate Blood Pressure Blood Pressure [Left] O2 Sat by Pulse 99 99 98 Oximetry 08/01/21 08/01/21 08/01/21 06:16 06:21 06:26 Temperature Pulse Rate 73 71 74 Respiratory Rate Blood Pressure Blood Pressure [Left] O2 Sat by Pulse 97 97 97 Oximetry 08/01/21 08/01/21 08/01/21 06:31 06:36 06:41 Temperature Pulse Rate 87 73 80 Respiratory Rate Blood Pressure 96/57 Blood Pressure [Left] O2 Sat by Pulse 96 96 95 Oximetry 08/01/21 08/01/21 08/01/21 06:46 06:51 06:56 Temperature Pulse Rate 75 82 76 Respiratory Rate Blood Pressure Blood Pressure [Left] O2 Sat by Pulse 96 95 96 Oximetry 08/01/21 08/01/21 08/01/21 07:01 07:05 07:06 Temperature Pulse Rate 82 71 74 Respiratory Rate Blood Pressure Blood Pressure [Left] O2 Sat by Pulse 95 92 96 Oximetry 08/01/21 08/01/21 08/01/21 07:11 07:16 07:18 Temperature Pulse Rate 77 78 76 Respiratory Rate Blood Pressure Blood Pressure [Left] O2 Sat by Pulse 95 96 94 Oximetry 08/01/21 08/01/21 08/01/21 07:21 07:24 07:26 Temperature Pulse Rate 78 72 70 Respiratory Rate Blood Pressure Blood Pressure [Left] O2 Sat by Pulse 96 94 96 Oximetry 08/01/21 08/01/21 08/01/21 07:31 07:34 07:36 Temperature Pulse Rate 79 75 82 Respiratory Rate Blood Pressure Blood Pressure [Left] O2 Sat by Pulse 96 94 96 Oximetry 08/01/21 08/01/21 08/01/21 07:40 07:41 07:46 Temperature Pulse Rate 75 83 73 Respiratory Rate Blood Pressure 104/61 Blood Pressure [Left] O2 Sat by Pulse 94 94 96 Oximetry 08/01/21 08/01/21 08/01/21 07:51 07:56 08:01 Temperature Pulse Rate 77 75 75 Respiratory Rate Blood Pressure Blood Pressure [Left] O2 Sat by Pulse 97 98 98 Oximetry 08/01/21 08/01/21 08/01/21 08:03 08:04 08:06 Temperature 97.4 F L Pulse Rate 86 88 78 Respiratory 18 Rate Blood Pressure 108/54 Blood Pressure 108/54 [Left] O2 Sat by Pulse 99 99 Oximetry 08/01/21 08/01/21 08/01/21 08:11 08:16 08:21 Temperature Pulse Rate 84 74 71 Respiratory Rate Blood Pressure Blood Pressure [Left] O2 Sat by Pulse 97 98 98 Oximetry 08/01/21 08/01/21 08/01/21 08:26 08:31 08:36 Temperature Pulse Rate 72 71 73 Respiratory Rate Blood Pressure Blood Pressure [Left] O2 Sat by Pulse 97 98 98 Oximetry 08/01/21 08/01/21 08/01/21 08:41 08:46 08:51 Temperature Pulse Rate 80 83 87 Respiratory Rate Blood Pressure 130/57 Blood Pressure [Left] O2 Sat by Pulse 97 98 97 Oximetry 08/01/21 08/01/21 08/01/21 08:56 09:01 09:06 Temperature 97.8 F Pulse Rate 84 92 H 88 Respiratory Rate Blood Pressure Blood Pressure [Left] O2 Sat by Pulse 99 98 98 Oximetry 08/01/21 08/01/21 08/01/21 09:11 09:16 09:21 Temperature Pulse Rate 77 74 85 Respiratory Rate Blood Pressure Blood Pressure [Left] O2 Sat by Pulse 97 97 98 Oximetry 08/01/21 08/01/21 08/01/21 09:26 09:31 09:36 Temperature Pulse Rate 80 86 79 Respiratory Rate Blood Pressure Blood Pressure [Left] O2 Sat by Pulse 98 97 98 Oximetry 08/01/21 08/01/21 08/01/21 09:41 09:46 09:51 Temperature Pulse Rate 88 85 77 Respiratory Rate Blood Pressure 105/62 Blood Pressure [Left] O2 Sat by Pulse 98 98 98 Oximetry 08/01/21 08/01/21 08/01/21 09:56 10:01 10:06 Temperature Pulse Rate 79 71 79 Respiratory Rate Blood Pressure Blood Pressure [Left] O2 Sat by Pulse 98 97 97 Oximetry 08/01/21 08/01/21 08/01/21 10:11 10:16 10:21 Temperature Pulse Rate 81 82 81 Respiratory Rate Blood Pressure Blood Pressure [Left] O2 Sat by Pulse 97 97 98 Oximetry 08/01/21 08/01/21 08/01/21 10:26 10:31 10:36 Temperature Pulse Rate 82 80 85 Respiratory Rate Blood Pressure Blood Pressure [Left] O2 Sat by Pulse 99 97 98 Oximetry 08/01/21 08/01/21 08/01/21 10:41 10:46 10:51 Temperature Pulse Rate 75 76 76 Respiratory Rate Blood Pressure 109/59 Blood Pressure [Left] O2 Sat by Pulse 98 98 97 Oximetry 08/01/21 08/01/21 08/01/21 10:56 11:01 11:06 Temperature Pulse Rate 74 72 75 Respiratory Rate Blood Pressure Blood Pressure [Left] O2 Sat by Pulse 96 96 97 Oximetry 08/01/21 08/01/21 08/01/21 11:11 11:16 11:21 Temperature Pulse Rate 75 80 81 Respiratory Rate Blood Pressure Blood Pressure [Left] O2 Sat by Pulse 96 97 97 Oximetry 08/01/21 08/01/21 08/01/21 11:26 11:31 11:36 Temperature Pulse Rate 79 74 75 Respiratory Rate Blood Pressure Blood Pressure [Left] O2 Sat by Pulse 98 97 98 Oximetry 08/01/21 08/01/21 08/01/21 11:42 11:47 11:52 Temperature Pulse Rate 80 80 85 Respiratory Rate Blood Pressure 103/61 Blood Pressure [Left] O2 Sat by Pulse 97 96 96 Oximetry 08/01/21 08/01/21 11:57 12:02 Temperature Pulse Rate 104 H 109 H Respiratory Rate Blood Pressure Blood Pressure [Left] O2 Sat by Pulse 96 95 Oximetry - Labs Labs: Abnormal Labs 07/30/21 07/30/21 07/30/21 17:43 17:43 17:43 RBC 5.19 H Hgb Hct MCV 72 L MCH 23 L RDW 18.1 H Seg Neuts % (Manual) 89.0 H Lymphocytes % (Manual) 8.0 L Nucleated RBC % 1.0 H Seg Neutrophils # Man 9.3 H Lymphocytes # (Manual) 0.8 L D-Dimer 984.89 H POC ABG pCO2 ABG Sodium ABG Chloride ABG Glucose Carboxyhemoglobin Sodium 135 L Potassium 3.4 L Carbon Dioxide 8 L* BUN 5 L Glucose 116 H Total Bilirubin 2.10 H Alkaline Phosphatase 189 H Lactate Dehydrogenase C-Reactive Protein Albumin 3.1 L HCG, Quant Arterial Blood Glucose Coronavirus (PCR) 07/30/21 07/30/21 07/30/21 18:48 18:48 20:35 RBC Hgb Hct MCV MCH RDW Seg Neuts % (Manual) Lymphocytes % (Manual) Nucleated RBC % Seg Neutrophils # Man Lymphocytes # (Manual) D-Dimer 968.21 H POC ABG pCO2 18.0 L ABG Sodium 135.3 L ABG Chloride 108.0 H ABG Glucose 101 H Carboxyhemoglobin 0.4 L Sodium Potassium Carbon Dioxide BUN Glucose 115 H Total Bilirubin Alkaline Phosphatase Lactate Dehydrogenase 272 H C-Reactive Protein 10.00 H Albumin HCG, Quant Arterial Blood Glucose 101 H Coronavirus (PCR) 07/31/21 07/31/21 07/31/21 04:13 04:13 08:08 RBC Hgb Hct MCV 71 L MCH 24 L RDW 18.3 H Seg Neuts % (Manual) 86.0 H Lymphocytes % (Manual) 7.0 L Nucleated RBC % 2.0 H Seg Neutrophils # Man 8.2 H Lymphocytes # (Manual) 0.7 L D-Dimer POC ABG pCO2 ABG Sodium ABG Chloride ABG Glucose Carboxyhemoglobin Sodium Potassium 3.4 L Carbon Dioxide 12 L BUN 6 L Glucose Total Bilirubin Alkaline Phosphatase Lactate Dehydrogenase C-Reactive Protein Albumin HCG, Quant Arterial Blood Glucose Coronavirus (PCR) Positive A 08/01/21 08/01/21 08:55 08:55 RBC Hgb 10.0 L Hct 29.4 L MCV 70 L MCH 24 L RDW 18.0 H Seg Neuts % (Manual) Lymphocytes % (Manual) Nucleated RBC % Seg Neutrophils # Man Lymphocytes # (Manual) D-Dimer POC ABG pCO2 ABG Sodium ABG Chloride ABG Glucose Carboxyhemoglobin Sodium Potassium Carbon Dioxide BUN Glucose Total Bilirubin Alkaline Phosphatase Lactate Dehydrogenase C-Reactive Protein Albumin HCG, Quant 8871 H Arterial Blood Glucose Coronavirus (PCR) Laboratory Results - last 24 hr 07/31/21 07/31/21 08/01/21 08:08 Unknown 08:55 WBC RBC Hgb Hct MCV MCH MCHC RDW Plt Count HCG, Quant Syphilis IgG Antibody Nonreactive Coronavirus (PCR) Positive A Hep Bs Antigen Hepatitis C Antibody Rubella IgG Antibody Blood Type B POSITIVE Antibody Screen Negative 08/01/21 08/01/21 08/01/21 08:55 08:55 08:55 WBC 6.0 RBC 4.23 Hgb 10.0 L Hct 29.4 L MCV 70 L MCH 24 L MCHC 34 RDW 18.0 H Plt Count 299 HCG, Quant 8871 H Syphilis IgG Antibody Coronavirus (PCR) Hep Bs Antigen Nonreactive Hepatitis C Antibody Non-reactive Rubella IgG Antibody Immune Blood Type Antibody Screen 08/01/21 08:55 WBC RBC Hgb Hct MCV MCH MCHC RDW Plt Count HCG, Quant Syphilis IgG Antibody Nonreactive Coronavirus (PCR) Hep Bs Antigen Hepatitis C Antibody Rubella IgG Antibody Blood Type Antibody Screen
--- NOTE | 2021-08-01 12:10 | Procedure Note ---
OB Delivery Note - Delivery Date of Delivery: 08/01/21 Surgeon: MICH RADFORD - Section Preop diagnosis: nonreassuring FHR tracing Postop diagnosis: same section procedure: primary low transverse Disposition: PACU Complications: none Narrative: Preop diagnosis: IUP at 32.2 weeks, COVID pneumonia, NRFHT remote from delivery, no care Postop diagnosis: Same Procedure: Primary low transverse section Surgeon: Dr. Mich Radford Anesthesia spinal Complications none EBL 725ml IV fluids 1000 mL Urine output 50 mL, clear Drains Lacey to gravity Findings: Viable male with weight 2640gms and 9/9, normal uterus tubes and ovaries bilaterally Procedure: Patient was consented in OB room 2002, taken to the operating room where she received excellent spinal anesthesia. She was then placed in the dorsal supine position with a leftward tilt. The abdomen was prepped and draped in a sterile fashion, and a timeout was verified. Adequate anesthesia was confirmed prior to the skin incision. A Pfannenstiel skin incision was made with a scalpel taken down to the underlying structures and the fascia was incised in the midline. The incision was extended laterally with curved Dang scissors, the superior and inferior aspects of the fascial incisions were grasped with Heidy clamps and the rectus muscles dissected sharply. The abdomen was entered bluntly in the midline carried down inferiorly with good visualization of the bladder. The uterine incision was then made sharply with a scalpel. The inferior and superior aspect of the uterine incisions were extended bluntly, the baby's head was delivered atraumatically. The remainder of the delivery was uncomplicated, no nuchal cord. The cord was clamped and cut and baby handed to waiting NICU team. An intact placenta with three-vessel cord delivered manually. The uterus was then cleared of all clots and debris and the uterus exteriorized. The uterine incision was closed in 2 layers of 0 vicryl with excellent hemostasis. The abdomen was then irrigated with warm normal saline and the uterus placed back into the abdomen atraumatically. A second look at the uterine incision assured hemostasis. The peritoneum was closed with 3-0 Vicryl, the rectus muscles approximated with 3-0 Vicryl, and the fascia c losed with 0 Vicryl in the usual fashion. The subcuticular structures were closed with interrupted sutures of 3-0 Vicryl and the skin closed with 4-0 Monocryl. A pressure dressing was applied. All sponge needle and instrument counts were correct x2. There were no complications. Mom and baby stable to PACU. EBL 725 mL Minesh Radford MD
[2021-08-01] MEDS ORDERED: WATER FOR IRRIG STERILE 1,500 ML BOTTLE IR ONE (12:45)
[2021-08-01] MEDS ORDERED: SODIUM CHLORIDE 0.9% IRR 1,500 ML BOTTLE IR ONE (12:45)
[2021-08-01 12:52] LABS: C-Reactive Protein 5.5 mg/dL (0.00-1.30)
[2021-08-01 13:00] LABS: Amphetamine Screen,Urine Negative; Benzodiazepines Screen,Urine Negative; Cannabinoid Screen,Urine Negative; Methadone Screen,Urine Negative; Opiate Screen,Urine Negative
[2021-08-01 13:12] LABS: Cocaine Screen,Urine Negative
[2021-08-01] MEDS ORDERED: FUROSEMIDE 20 MG/2 ML INJ ONE (13:18)
[2021-08-01 13:40] LABS: Bacteria,Urine 1+ /HPF (Negative); Bilirubin,Urine MOD (Negative); Blood,Urine SM (Negative); Color,Urine Amber (Yellow); Granular Casts,Urine 10 /LPF; Hyaline Casts,Urine 269 /LPF; Mucus,Urine FEW /HPF
[2021-08-01] MEDS ORDERED: MORPHINE 4 MG/1 ML INJ IV PRN (13:44)
[2021-08-01] MEDS ORDERED: NALOXONE 0.4 MG/1 ML INJ IV PRN (13:44)
[2021-08-01] MEDS ORDERED: HYDROcodone/ACETAMINOPHEN 5-325 MG TAB PO PRN (13:44)
[2021-08-01] MEDS ORDERED: LANOLIN/ZINC/DIMETHICONE (LANSINOH) 7 GM TP PRN (13:44)
[2021-08-01] MEDS ORDERED: WITCH HAZEL/ GLYCERIN PAD TP PRN (13:44)
[2021-08-01] MEDS ORDERED: KETOROLAC 30 MG/1 ML INJ IV PRN (13:44)
[2021-08-01] MEDS ORDERED: PROMETHAZINE 25 MG RECT SUPP PR PRN (13:44)
--- NOTE | 2021-08-01 13:46 | Progress Note ---
Assessment and Plan Coronavirus infection Pneumonia 32 weeks gestation of Obesity Sepsis Anemia - prn supplemental oxygen to keep O2 sats > 90% - prn bronchodilators (ALLAN) with pulm hygiene per RT - continue to avoid nephrotoxins, renally dose all medications - continue mobility protocols to prevent pressure ulcers - PT/OT as tolerated - Wound care per RN/WCT - accuchecks with glycemic control per SSI for target blood glucose < 180 mg/dL - tobacco abstinence counseled at the bedside - home oxygen evaluation at discharge - GI & VTE prophylaxis - Flu & pneumovax per protocol - prn analgesia per pain score - Pulmonary out patient follow up for PFTs and optimization of respiratory status as needed - continue other care per attending / other consultants ... re-evaluate in am & prn Subjective Date of service: 08/01/21 Principal diagnosis: COVID-19 infection; Pneumonia; 32 weeks gestation; Obesity; Sepsis; Anemia Interval history: Patient is seen today for: Coronavirus infection; Pneumonia; 32 weeks gestation of ; Obesity; Sepsis; Anemia Seen and examined at bedside; 24hour events reviewed; nursing and respiratory care staff consulted; no adverse overnight events reported to me; resting in bed; No N/V/F/C Objective Vital Signs - 12hr 08/01/21 08/01/21 08/01/21 01:49 01:54 01:59 Temperature Pulse Rate 91 H 93 H 90 Respiratory Rate Blood Pressure Blood Pressure [Left] O2 Sat by Pulse 98 99 98 Oximetry 08/01/21 08/01/21 08/01/21 02:46 02:51 02:56 Temperature Pulse Rate 91 H 79 79 Respiratory Rate Blood Pressure Blood Pressure [Left] O2 Sat by Pulse 100 100 98 Oximetry 08/01/21 08/01/21 08/01/21 03:00 03:01 03:06 Temperature Pulse Rate 75 78 77 Respiratory Rate Blood Pressure 101/66 Blood Pressure [Left] O2 Sat by Pulse 99 100 Oximetry 08/01/21 08/01/21 08/01/21 03:11 03:16 03:21 Temperature Pulse Rate 77 75 77 Respiratory Rate Blood Pressure Blood Pressure [Left] O2 Sat by Pulse 100 100 100 Oximetry 08/01/21 08/01/21 08/01/21 03:26 03:31 03:36 Temperature Pulse Rate 70 77 75 Respiratory Rate Blood Pressure Blood Pressure [Left] O2 Sat by Pulse 100 100 100 Oximetry 08/01/21 08/01/21 08/01/21 03:41 03:46 03:51 Temperature Pulse Rate 74 78 79 Respiratory Rate Blood Pressure 105/63 Blood Pressure [Left] O2 Sat by Pulse 100 99 98 Oximetry 08/01/21 08/01/21 08/01/21 03:56 04:01 04:06 Temperature Pulse Rate 70 79 82 Respiratory Rate Blood Pressure Blood Pressure [Left] O2 Sat by Pulse 99 100 98 Oximetry 08/01/21 08/01/21 08/01/21 04:11 04:13 04:16 Temperature Pulse Rate 78 78 82 Respiratory Rate Blood Pressure Blood Pressure [Left] O2 Sat by Pulse 98 92 95 Oximetry 08/01/21 08/01/21 08/01/21 04:21 04:26 04:31 Temperature Pulse Rate 88 95 H 78 Respiratory Rate Blood Pressure Blood Pressure [Left] O2 Sat by Pulse 98 97 99 Oximetry 08/01/21 08/01/21 08/01/21 04:36 04:41 04:46 Temperature Pulse Rate 86 83 83 Respiratory Rate Blood Pressure 103/65 Blood Pressure [Left] O2 Sat by Pulse 100 98 98 Oximetry 08/01/21 08/01/21 08/01/21 04:51 04:56 05:01 Temperature Pulse Rate 79 76 70 Respiratory Rate Blood Pressure Blood Pressure [Left] O2 Sat by Pulse 98 98 98 Oximetry 08/01/21 08/01/21 08/01/21 05:06 05:11 05:16 Temperature Pulse Rate 72 77 73 Respiratory Rate Blood Pressure Blood Pressure [Left] O2 Sat by Pulse 98 98 98 Oximetry 08/01/21 08/01/21 08/01/21 05:21 05:26 05:31 Temperature Pulse Rate 77 76 71 Respiratory Rate Blood Pressure Blood Pressure [Left] O2 Sat by Pulse 97 97 95 Oximetry 08/01/21 08/01/21 08/01/21 05:36 05:41 05:46 Temperature Pulse Rate 78 76 78 Respiratory Rate Blood Pressure 104/63 Blood Pressure [Left] O2 Sat by Pulse 96 96 96 Oximetry 08/01/21 08/01/21 08/01/21 05:47 05:51 05:56 Temperature Pulse Rate 73 79 77 Respiratory Rate Blood Pressure Blood Pressure [Left] O2 Sat by Pulse 93 97 99 Oximetry 08/01/21 08/01/21 08/01/21 06:01 06:06 06:11 Temperature Pulse Rate 75 73 73 Respiratory Rate Blood Pressure Blood Pressure [Left] O2 Sat by Pulse 99 99 98 Oximetry 08/01/21 08/01/21 08/01/21 06:16 06:21 06:26 Temperature Pulse Rate 73 71 74 Respiratory Rate Blood Pressure Blood Pressure [Left] O2 Sat by Pulse 97 97 97 Oximetry 08/01/21 08/01/21 08/01/21 06:31 06:36 06:41 Temperature Pulse Rate 87 73 80 Respiratory Rate Blood Pressure 96/57 Blood Pressure [Left] O2 Sat by Pulse 96 96 95 Oximetry 08/01/21 08/01/21 08/01/21 06:46 06:51 06:56 Temperature Pulse Rate 75 82 76 Respiratory Rate Blood Pressure Blood Pressure [Left] O2 Sat by Pulse 96 95 96 Oximetry 08/01/21 08/01/21 08/01/21 07:01 07:05 07:06 Temperature Pulse Rate 82 71 74 Respiratory Rate Blood Pressure Blood Pressure [Left] O2 Sat by Pulse 95 92 96 Oximetry 08/01/21 08/01/21 08/01/21 07:11 07:16 07:18 Temperature Pulse Rate 77 78 76 Respiratory Rate Blood Pressure Blood Pressure [Left] O2 Sat by Pulse 95 96 94 Oximetry 08/01/21 08/01/21 08/01/21 07:21 07:24 07:26 Temperature Pulse Rate 78 72 70 Respiratory Rate Blood Pressure Blood Pressure [Left] O2 Sat by Pulse 96 94 96 Oximetry 08/01/21 08/01/21 08/01/21 07:31 07:34 07:36 Temperature Pulse Rate 79 75 82 Respiratory Rate Blood Pressure Blood Pressure [Left] O2 Sat by Pulse 96 94 96 Oximetry 08/01/21 08/01/21 08/01/21 07:40 07:41 07:46 Temperature Pulse Rate 75 83 73 Respiratory Rate Blood Pressure 104/61 Blood Pressure [Left] O2 Sat by Pulse 94 94 96 Oximetry 08/01/21 08/01/21 08/01/21 07:51 07:56 08:01 Temperature Pulse Rate 77 75 75 Respiratory Rate Blood Pressure Blood Pressure [Left] O2 Sat by Pulse 97 98 98 Oximetry 08/01/21 08/01/21 08/01/21 08:03 08:04 08:06 Temperature 97.4 F L Pulse Rate 86 88 78 Respiratory 18 Rate Blood Pressure 108/54 Blood Pressure 108/54 [Left] O2 Sat by Pulse 99 99 Oximetry 08/01/21 08/01/21 08/01/21 08:11 08:16 08:21 Temperature Pulse Rate 84 74 71 Respiratory Rate Blood Pressure Blood Pressure [Left] O2 Sat by Pulse 97 98 98 Oximetry 08/01/21 08/01/21 08/01/21 08:26 08:31 08:36 Temperature Pulse Rate 72 71 73 Respiratory Rate Blood Pressure Blood Pressure [Left] O2 Sat by Pulse 97 98 98 Oximetry 08/01/21 08/01/21 08/01/21 08:41 08:46 08:51 Temperature Pulse Rate 80 83 87 Respiratory Rate Blood Pressure 130/57 Blood Pressure [Left] O2 Sat by Pulse 97 98 97 Oximetry 08/01/21 08/01/21 08/01/21 08:56 09:01 09:06 Temperature 97.8 F Pulse Rate 84 92 H 88 Respiratory Rate Blood Pressure Blood Pressure [Left] O2 Sat by Pulse 99 98 98 Oximetry 08/01/21 08/01/21 08/01/21 09:11 09:16 09:21 Temperature Pulse Rate 77 74 85 Respiratory Rate Blood Pressure Blood Pressure [Left] O2 Sat by Pulse 97 97 98 Oximetry 08/01/21 08/01/21 08/01/21 09:26 09:31 09:36 Temperature Pulse Rate 80 86 79 Respiratory Rate Blood Pressure Blood Pressure [Left] O2 Sat by Pulse 98 97 98 Oximetry 08/01/21 08/01/21 08/01/21 09:41 09:46 09:51 Temperature Pulse Rate 88 85 77 Respiratory Rate Blood Pressure 105/62 Blood Pressure [Left] O2 Sat by Pulse 98 98 98 Oximetry 08/01/21 08/01/21 08/01/21 09:56 10:01 10:06 Temperature Pulse Rate 79 71 79 Respiratory Rate Blood Pressure Blood Pressure [Left] O2 Sat by Pulse 98 97 97 Oximetry 08/01/21 08/01/21 08/01/21 10:11 10:16 10:21 Temperature Pulse Rate 81 82 81 Respiratory Rate Blood Pressure Blood Pressure [Left] O2 Sat by Pulse 97 97 98 Oximetry 08/01/21 08/01/21 08/01/21 10:26 10:31 10:36 Temperature Pulse Rate 82 80 85 Respiratory Rate Blood Pressure Blood Pressure [Left] O2 Sat by Pulse 99 97 98 Oximetry 08/01/21 08/01/21 08/01/21 10:41 10:46 10:51 Temperature Pulse Rate 75 76 76 Respiratory Rate Blood Pressure 109/59 Blood Pressure [Left] O2 Sat by Pulse 98 98 97 Oximetry 08/01/21 08/01/21 08/01/21 10:56 11:01 11:06 Temperature Pulse Rate 74 72 75 Respiratory Rate Blood Pressure Blood Pressure [Left] O2 Sat by Pulse 96 96 97 Oximetry 08/01/21 08/01/21 08/01/21 11:11 11:16 11:21 Temperature Pulse Rate 75 80 81 Respiratory Rate Blood Pressure Blood Pressure [Left] O2 Sat by Pulse 96 97 97 Oximetry 08/01/21 08/01/21 08/01/21 11:26 11:31 11:36 Temperature Pulse Rate 79 74 75 Respiratory Rate Blood Pressure Blood Pressure [Left] O2 Sat by Pulse 98 97 98 Oximetry 08/01/21 08/01/21 08/01/21 11:42 11:47 11:52 Temperature Pulse Rate 80 80 85 Respiratory Rate Blood Pressure 103/61 Blood Pressure [Left] O2 Sat by Pulse 97 96 96 Oximetry 08/01/21 08/01/21 08/01/21 11:57 12:02 12:04 Temperature Pulse Rate 104 H 109 H 113 H Respiratory Rate Blood Pressure Blood Pressure [Left] O2 Sat by Pulse 96 95 94 Oximetry Constitutional: no acute distress Eyes: non-icteric ENT: oropharynx moist Neck: supple, no lymphadenopathy Effort: mildly labored Ascultation: Bilateral: clear Percussion: Bilateral: not dull Cardiovascular: regular rate and rhythm Gastrointestinal: normoactive bowel sounds, soft, non-tender, other (gravid abdo men) Integumentary: normal Extremities: no cyanosis, pulses normal, no ischemia or petechiae, edema Neurologic: non-focal exam, pupils equal and round, CN II-XII normal Psychiatric: mood appropriate, affect normal CBC and BMP: 08/02/21 00:50 07/31/21 04:13 ABG, PT/INR, D-dimer: ABG ABG pH 7.355 (7.320-7.450) 07/30/21 20:35 POC ABG pCO2 18.0 mmHg (32.0-48.0) L 07/30/21 20:35 POC ABG pO2 88.2 mmHg (83-108) 07/30/21 20:35 POC ABG HCO3 9.8 07/30/21 20:35 ABG O2 Saturation 96.3 (0-100) 07/30/21 20:35 PT/INR, D-dimer D-Dimer 968.21 ng/mlDDU (0-234) H 07/30/21 18:48 Abnormal lab findings: Abnormal Labs 07/30/21 07/30/21 07/30/21 08:55 17:43 17:43 RBC 5.19 H Hgb Hct MCV 72 L MCH 23 L RDW 18.1 H Seg Neuts % (Manual) 89.0 H Lymphocytes % (Manual) 8.0 L Nucleated RBC % 1.0 H Seg Neutrophils # Man 9.3 H Lymphocytes # (Manual) 0.8 L D-Dimer POC ABG pCO2 ABG Sodium ABG Chloride ABG Glucose Carboxyhemoglobin Sodium 135 L Potassium 3.4 L Carbon Dioxide 8 L* BUN 5 L Glucose 116 H Total Bilirubin 2.10 H Alkaline Phosphatase 189 H Lactate Dehydrogenase 240 H C-Reactive Protein 5.50 H Albumin 3.1 L HCG, Quant Arterial Blood Glucose Coronavirus (PCR) 07/30/21 07/30/21 07/30/21 17:43 18:48 18:48 RBC Hgb Hct MCV MCH RDW Seg Neuts % (Manual) Lymphocytes % (Manual) Nucleated RBC % Seg Neutrophils # Man Lymphocytes # (Manual) D-Dimer 984.89 H 968.21 H POC ABG pCO2 ABG Sodium ABG Chloride ABG Glucose Carboxyhemoglobin Sodium Potassium Carbon Dioxide BUN Glucose 115 H Total Bilirubin Alkaline Phosphatase Lactate Dehydrogenase 272 H C-Reactive Protein 10.00 H Albumin HCG, Quant Arterial Blood Glucose Coronavirus (PCR) 07/30/21 07/31/21 07/31/21 20:35 04:13 04:13 RBC Hgb Hct MCV 71 L MCH 24 L RDW 18.3 H Seg Neuts % (Manual) 86.0 H Lymphocytes % (Manual) 7.0 L Nucleated RBC % 2.0 H Seg Neutrophils # Man 8.2 H Lymphocytes # (Manual) 0.7 L D-Dimer POC ABG pCO2 18.0 L ABG Sodium 135.3 L ABG Chloride 108.0 H ABG Glucose 101 H Carboxyhemoglobin 0.4 L Sodium Potassium 3.4 L Carbon Dioxide 12 L BUN 6 L Glucose Total Bilirubin Alkaline Phosphatase Lactate Dehydrogenase C-Reactive Protein Albumin HCG, Quant Arterial Blood Glucose 101 H Coronavirus (PCR) 07/31/21 08/01/21 08/01/21 08:08 08:55 08:55 RBC Hgb 10.0 L Hct 29.4 L MCV 70 L MCH 24 L RDW 18.0 H Seg Neuts % (Manual) Lymphocytes % (Manual) Nucleated RBC % Seg Neutrophils # Man Lymphocytes # (Manual) D-Dimer POC ABG pCO2 ABG Sodium ABG Chloride ABG Glucose Carboxyhemoglobin Sodium Potassium Carbon Dioxide BUN Glucose Total Bilirubin Alkaline Phosphatase Lactate Dehydrogenase C-Reactive Protein Albumin HCG, Quant 8871 H Arterial Blood Glucose Coronavirus (PCR) Positive A Allied health notes reviewed: nursing
[2021-08-01] MEDS ORDERED: OXYTOCIN DRIP 30 UNITS/500 ML BAG IV SCH (14:00)
[2021-08-01 14:08] LABS: Ictotest,Urine 1+ (Negative)
--- NOTE | 2021-08-01 14:19 | Anesthesia Consultation ---
Anesthesia Consult and Med Hx Date of service: 08/01/21 - Airway Anesthetic Teeth Evaluation: Poor ROM Head & Neck: Adequate Mental/Hyoid Distance: Adequate Mallampati Class: Class II Intubation Access Assessment: Probably Good - Pulmonary Exam CTA: Yes - Cardiac Exam Cardiac Exam: RRR - Pre-Operative Health Status ASA Pre-Surgery Classification: ASA3 Proposed Anesthetic Plan: Spinal - Pulmonary Hx Smoking: No Hx Asthma: No Hx Respiratory Symptoms: Yes (COVID PNEUMONIA) SOB: Yes COPD: No Home Oxygen Therapy: No Hx Pneumonia: No - Cardiovascular System Hx Hypertension: No Hx Coronary Artery Disease: No Hx Heart Attack/AMI: No Hx Angina: No Hx Percutaneous Transluminal Coronary Angioplasty (PTCA): No Hx Cardia Arrhythmia: No Hx Pacemaker: No Hx Internal Defibrillator: No Hx Valvular Heart Disease: No Hx Heart Murmur: No - Central Nervous System Hx Neuromuscular Disorder: No Hx Seizures: No CVA: No Hx Back Pain: Yes Hx Psychiatric Problems: No - Gastrointestinal Hx Ulcer: No Hx Gastroesophageal Reflux Disease: Yes - Endocrine Hx Renal Disease: No Hx End Stage Renal Disease: No Hx Cirrhosis: No Hx Liver Disease: No Hx Insulin Dependent Diabetes: No Hx Non-Insulin Dependent Diabetes: No Hx Thyroid Disease: No Hx Hypothyroidism: No Hx Hyperthyroidism: No - Hematic Hx Anemia: No Hx Sickle Cell Disease: No - Other Systems Hx Alcohol Use: No Hx Substance Use: No Hx Cancer: No Hx Obesity: Yes
--- NOTE | 2021-08-01 14:19 | Progress Note ---
Spinal Anesthesia Block - Spinal Anesthesia Block Start Time: 12:26 Stop Time: 12:31 Performed by:: BASIL GUERRA Procedure: Patient IDed, H&P reviewed, all questions and concerns were answered, and consent was signed. Timeout was performed at bedside. Patient in sitting position. Sterile prep and drape was performed. [3] ml of 1% lidocaine skin wheal at L[3]- L [4]. Needle introducer advanced. 25 gauge spinal needle advanced. Clear, free flowing CSF. negative blood, negative paresthesia. Spinal dose given. All needles removed. Patient tolerated procedure.
[2021-08-01] MEDS: FUROSEMIDE 20 MG/2 ML INJ IV SCH (18:25)
[2021-08-01 20:16] LABS: Band Neutrophils # (Manual) 0.4 K/mm3; Myelocytes # (Manual) 0.5 K/mm3; Total Cells Counted 100
[2021-08-01] MEDS: KETOROLAC 30 MG/1 ML INJ IV PRN (22:27)
[2021-08-01] MEDS: HEPARIN 5,000 UNIT/1 ML VIAL SUB-Q SCH (22:27)
--- NOTE | 2021-08-01 22:38 | Post Anesthesia Evaluation ---
- Post Anesthesia Evaluation Patient Participated: Yes Airway Patent: Yes Stable Respiratory Function: Yes Nausea/Vomiting: No Temp > 96.8F: Yes Pain Manageable: Yes Adequeate Hydration: Yes Anesthesia Complications: No Block Receding Appropriately: Yes Patient on Ventilator: No
[2021-08-02 01:04] LABS: Hematocrit 28.7 % (30.3-42.9); Hemoglobin 9.4 gm/dl (10.1-14.3)
[2021-08-02] MEDS: FUROSEMIDE 20 MG/2 ML INJ IV SCH ×2 (06:43→16:43)
[2021-08-02] MEDS: KETOROLAC 30 MG/1 ML INJ IV PRN ×2 (06:44→16:37)
--- NOTE | 2021-08-02 08:46 | Progress Note ---
Assessment and Plan POD#1 stable continue routine postop care Minesh Stout MD Subjective - Subjective Date of service: 08/02/21 Interval history: COVID pneumonia: stable Persistent NRFHT: plan for operative delivery. Informed consent Minesh Stout MD Patient reports: appetite normal, voiding normally, pain well controlled, ambulating normally : doing well Objective - Vital Signs Latest vital signs: Vital Signs Temp Pulse Resp BP BP Pulse Ox Pulse Ox 08/02/21 04:00 97.9 F 69 19 104/68 97 08/02/21 00:14 98.0 F 72 19 109/72 97 08/01/21 20:00 98 08/01/21 18:29 95 08/01/21 15:30 95 08/01/21 15:05 73 95 08/01/21 15:00 70 96 08/01/21 14:59 68 94 08/01/21 14:55 69 95 08/01/21 14:51 70 94 08/01/21 14:50 97.8 F 71 95 08/01/21 14:49 72 118/85 08/01/21 14:48 70 94 08/01/21 14:47 68 96 08/01/21 14:44 68 118/87 08/01/21 14:42 67 95 08/01/21 14:39 70 116/84 08/01/21 14:37 72 97 08/01/21 14:34 71 115/83 08/01/21 14:32 71 96 08/01/21 14:29 75 112/81 08/01/21 14:27 74 97 08/01/21 14:24 77 113/74 08/01/21 14:22 77 97 08/01/21 14:19 86 118/67 08/01/21 14:17 84 97 08/01/21 14:15 86 20 118/67 97 08/01/21 14:14 93 08/01/21 14:12 76 96 08/01/21 14:07 76 97 08/01/21 14:04 75 107/57 08/01/21 14:02 75 96 08/01/21 14:00 82 18 96/60 97 08/01/21 13:59 82 96/60 08/01/21 13:57 78 97 08/01/21 13:55 74 18 87/66 97 08/01/21 13:50 97.6 F 66 18 86/56 97 08/01/21 12:04 113 H 94 08/01/21 12:02 109 H 95 08/01/21 11:57 104 H 96 08/01/21 11:52 85 96 08/01/21 11:47 80 96 08/01/21 11:42 80 103/61 97 08/01/21 11:36 75 98 08/01/21 11:31 74 97 08/01/21 11:26 79 98 08/01/21 11:21 81 97 08/01/21 11:16 80 97 08/01/21 11:11 75 96 08/01/21 11:06 75 97 08/01/21 11:01 72 96 08/01/21 10:56 74 96 08/01/21 10:51 76 97 08/01/21 10:46 76 98 08/01/21 10:41 75 109/59 98 08/01/21 10:36 85 98 08/01/21 10:31 80 97 08/01/21 10:26 82 99 08/01/21 10:21 81 98 08/01/21 10:16 82 97 08/01/21 10:11 81 97 08/01/21 10:06 79 97 08/01/21 10:01 71 97 08/01/21 09:56 79 98 08/01/21 09:51 77 98 08/01/21 09:46 85 98 08/01/21 09:41 88 105/62 98 08/01/21 09:36 79 98 08/01/21 09:31 86 97 08/01/21 09:26 80 98 08/01/21 09:21 85 98 08/01/21 09:16 74 97 08/01/21 09:11 77 97 08/01/21 09:06 97.8 F 88 98 08/01/21 09:01 92 H 98 08/01/21 08:56 84 99 08/01/21 08:51 87 97 08/01/21 08:46 83 98 Intake and Output 08/01/21 08/02/21 08/02/21 23:59 07:59 15:59 Output Total 300 1800 Balance -300 -1800 Output: Urine 300 1800 Indwelling Catheter 300 1600 Void 200 Other: Total, Output Amount 300 200 - Exam Breasts: Present: deferred Cardiovascular: Present: Regular rate Lungs: Present: Clear to auscultation Abdomen: Present: normal appearance, soft, normal bowel sounds Uterus: Present: normal, fundal height below umbilicus Extremities: Present: normal Deep Tendon Reflex Grade: Normal +2 Incision: Present: normal, dry, intact - Labs Labs: Abnormal lab results 07/30/21 08/01/21 08/01/21 Range/Units 08:55 08:55 08:55 Hgb 10.0 L (10.1-14.3) gm/dl Hct 29.4 L (30.3-42.9) % MCV 70 L (79-97) fl MCH 24 L (28-32) pg RDW 18.0 H (13.2-15.2) % Nucleated RBC % 5.0 H (0.0-0.9) % Lymphocytes # (Manual) 0.9 L (1.2-5.4) K/mm3 Lactate Dehydrogenase 240 H (91-180) units/L C-Reactive Protein 5.50 H (0.00-1.30) mg/dL HCG, Quant 8871 H (0-4) mIU/mL Urine WBC (Auto) (0.0-6.0) /HPF 08/01/21 08/02/21 Range/Units 12:29 00:50 Hgb 9.4 L (10.1-14.3) gm/dl Hct 28.7 L (30.3-42.9) % MCV (79-97) fl MCH (28-32) pg RDW (13.2-15.2) % Nucleated RBC % (0.0-0.9) % Lymphocytes # (Manual) (1.2-5.4) K/mm3 Lactate Dehydrogenase (91-180) units/L C-Reactive Protein (0.00-1.30) mg/dL HCG, Quant (0-4) mIU/mL Urine WBC (Auto) 35.0 H (0.0-6.0) /HPF
[2021-08-02] MEDS: VANCOMYCIN/NS 1 GM/250 ML 1 GM/250 ML BAG IV SCH (11:11)
[2021-08-02] MEDS: FAMOTIDINE 20 MG TAB PO SCH ×2 (11:14→22:40)
[2021-08-02] MEDS: PRENATAL VIT27-FE FUMARATE-FOLIC ACID VIT TAB PO SCH (11:14)
[2021-08-02] MEDS: HEPARIN 5,000 UNIT/1 ML VIAL SUB-Q SCH ×2 (11:21→22:40)
--- NOTE | 2021-08-02 12:21 | Electrocardiograph Report ---
[facility] Test Date: 2021-07-30 Test Time: 17:00:03 Pat Name: JADE NORMAN Department: Room: 2130 Gender: F [employer] Operator: MELISSA : 1990 Requested By: JAYA WILLIAM Order Number: [id number] Reading MD: Keiko Dillon Measurements Intervals [place] Rate: 122 P: 52 CA: 137 QRS: 70 QRSD: 75 T: 24 QT: 315 QTc: 449 Interpretive Statements Sinus tachycardia No previous ECG available for comparison Electronically Signed On 08-02-2021 12:20:53 EDT by Keiko Dillon
[2021-08-02] MEDS: AZITHROMYCIN/NS 500 MG/250 ML 500 MG/250 ML BAG IV SCH (16:30)
--- NOTE | 2021-08-02 16:46 | Progress Note ---
Assessment and Plan 31-year-old female with history of obesity. 32 weeks was brought to the emergency room because of progressive shortness of breath associated with cough, sore throat pain for last 2 3 days. She denies fever or chills, loss of smell or taste. Patient denies any history of PE or DVT. She denies any leg pain or swelling. Patient denies any known contact with anyone who was tested positive for COVID-19. Patient denies any abdominal pain, vaginal bleeding, or leakage of vaginal fluid. Patient is not vaccinated against COVID-19. Chest CTA showed no CT evidence of PE, patchy peripheral groundglass opacities in the both lungs likely indicating multifocal pneumonia. Patients Tom virus PCR Positive. Patient admitted for diagnosis of Covid pneumonia. Patient denies other medical problems. No history of smoking, alcohol or drug abuse. 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 Patient delivered baby through operation few days ago. Patient alert, awake. Resting on room air. O2 saturation running 97%. No complaint of chest pain or shortness of breath. Complaining slight non productive cough. Patient afebrile. No leukocytosis. Blood pressure 110/61 . Pulse 64. Chest xray done 07/30/21 reported Bilateral pneumonia . CTA of chest done on 07/30/[address] evidence for pulmonary embolism. Patchy peripheral groundglass opacities in both lungs likely indicating multifocal pneumonia. Patient presently on albuterol/atrovent aerosol treatments, Azithromycin, vancomycin, S/C Heparin, Famotidine. I spent critical care time of 40 minutes, obtaining history, review the chart, examine the patient, review Chest xray, CTA of chest, review lab results, talking to the nursing staff and work out plan of treatment for this COVID 19 pneumonia patient and post . - Patient Problems (1) Coronavirus infection Current Visit: Yes Status: Acute Plan to address problem: Management as per infectious diseases. (2) Pneumonia Current Visit: Yes Status: Acute Plan to address problem: Pneumonia likely from COVID 19 infection. Patient is on Zithromax and vancomycin. Albuterol/atrovent aerosol treatments. Recommend prone position. (3) 32 weeks gestation of Current Visit: Yes Status: Acute Plan to address problem: Patient just delivered Baby few days ago. (4) Obesity Current Visit: Yes Status: Acute Plan to address problem: Recommend to loose weight. Diet and exercise once she recovered from present problem. S/C Heparin. (5) Sepsis Current Visit: Yes Status: Acute Plan to address problem: On Zithromax and Vancomycin. (6) Anemia Current Visit: No Status: Acute Qualifiers: Anemia type: other cause Other causes of anemia: acute posthemorrhagic Qualified Code(s): D62 - Acute posthemorrhagic anemia Plan to address problem: Management as per primary care Hematology. Subjective Date of service: 08/02/21 Interval history: 31-year-old female with history of obesity. 32 weeks was brought to the emergency room because of progressive shortness of breath associated with cough, sore throat pain for last 2 3 days. She denies fever or chills, loss of smell or taste. Patient denies any history of PE or DVT. She denies any leg pain or swelling. Patient denies any known contact with anyone who was tested positive for COVID-19. Patient denies any abdominal pain, vaginal bleeding, or leakage of vaginal fluid. Patient is not vaccinated against COVID-19. Chest CTA showed no CT evidence of PE, patchy peripheral groundglass opacities in the both lungs likely indicating multifocal pneumonia. Patients Tom virus PCR Positive. Patient admitted for diagnosis of Covid pneumonia. Patient denies other medical problems. No history of smoking, alcohol or drug abuse. 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 Patient delivered baby through operation few days ago. Patient alert, awake. Resting on room air. O2 saturation running 97%. No complaint of chest pain or shortness of breath. Complaining slight non prod uctive cough. Patient afebrile. No leukocytosis. Blood pressure 110/61 . Pulse 64. Chest xray done 07/30/21 reported Bilateral pneumonia . CTA of chest done on 07/30/[address] evidence for pulmonary embolism. Patchy peripheral groundglass opacities in both lungs likely indicating multifocal pneumonia. Patient presently on albuterol/atrovent aerosol treatments, Azithromycin, vancomycin, S/C Heparin, Famotidine. Objective Vital Signs - 12hr 08/02/21 09:30 Temperature 97.8 F Pulse Rate 64 Respiratory 20 Rate Blood Pressure 110/61 [Left] O2 Sat by Pulse 97 Oximetry O2 Sat by Pulse 91 Oximetry [ Anterior Left Throughout] Constitutional: no acute distress, alert, other (Resting on room air.) Eyes: non-icteric Neck: supple, no lymphadenopathy Effort: normal Ascultation: Bilateral: diminished breath sounds, rhonchi Cardiovascular: regular rate and rhythm Gastrointestinal: normoactive bowel sounds, tender, non-distended, other (Slight tenderness at incision site.) Integumentary: normal Extremities: no cyanosis, no edema Neurologic: normal mental status, non-focal exam, pupils equal and round, CN II- XII normal Psychiatric: mood appropriate, affect normal CBC and BMP: 08/02/21 00:50 07/31/21 04:13 ABG, PT/INR, D-dimer: ABG ABG pH 7.355 (7.320-7.450) 07/30/21 20:35 POC ABG pCO2 18.0 mmHg (32.0-48.0) L 07/30/21 20:35 POC ABG pO2 88.2 mmHg (83-108) 07/30/21 20:35 POC ABG HCO3 9.8 07/30/21 20:35 ABG O2 Saturation 96.3 (0-100) 07/30/21 20:35 PT/INR, D-dimer D-Dimer 968.21 ng/mlDDU (0-234) H 07/30/21 18:48 Abnormal lab findings: Abnormal Labs 07/30/21 07/30/21 07/30/21 08:55 17:43 17:43 RBC 5.19 H Hgb Hct MCV 72 L MCH 23 L RDW 18.1 H Seg Neuts % (Manual) 89.0 H Lymphocytes % (Manual) 8.0 L Nucleated RBC % 1.0 H Seg Neutrophils # Man 9.3 H Lymphocytes # (Manual) 0.8 L D-Dimer POC ABG pCO2 ABG Sodium ABG Chloride ABG Glucose Carboxyhemoglobin Sodium 135 L Potassium 3.4 L Carbon Dioxide 8 L* BUN 5 L Glucose 116 H Total Bilirubin 2.10 H Alkaline Phosphatase 189 H Lactate Dehydrogenase 240 H C-Reactive Protein 5.50 H Albumin 3.1 L HCG, Quant Arterial Blood Glucose Urine WBC (Auto) Coronavirus (PCR) 07/30/21 07/30/21 07/30/21 17:43 18:48 18:48 RBC Hgb Hct MCV MCH RDW Seg Neuts % (Manual) Lymphocytes % (Manual) Nucleated RBC % Seg Neutrophils # Man Lymphocytes # (Manual) D-Dimer 984.89 H 968.21 H POC ABG pCO2 ABG Sodium ABG Chloride ABG Glucose Carboxyhemoglobin Sodium Potassium Carbon Dioxide BUN Glucose 115 H Total Bilirubin Alkaline Phosphatase Lactate Dehydrogenase 272 H C-Reactive Protein 10.00 H Albumin HCG, Quant Arterial Blood Glucose Urine WBC (Auto) Coronavirus (PCR) 07/30/21 07/31/21 07/31/21 20:35 04:13 04:13 RBC Hgb Hct MCV 71 L MCH 24 L RDW 18.3 H Seg Neuts % (Manual) 86.0 H Lymphocytes % (Manual) 7.0 L Nucleated RBC % 2.0 H Seg Neutrophils # Man 8.2 H Lymphocytes # (Manual) 0.7 L D-Dimer POC ABG pCO2 18.0 L ABG Sodium 135.3 L ABG Chloride 108.0 H ABG Glucose 101 H Carboxyhemoglobin 0.4 L Sodium Potassium 3.4 L Carbon Dioxide 12 L BUN 6 L Glucose Total Bilirubin Alkaline Phosphatase Lactate Dehydrogenase C-Reactive Protein Albumin HCG, Quant Arterial Blood Glucose 101 H Urine WBC (Auto) Coronavirus (PCR) 07/31/21 08/01/21 08/01/21 08:08 08:55 08:55 RBC Hgb 10.0 L Hct 29.4 L MCV 70 L MCH 24 L RDW 18.0 H Seg Neuts % (Manual) Lymphocytes % (Manual) Nucleated RBC % 5.0 H Seg Neutrophils # Man Lymphocytes # (Manual) 0.9 L D-Dimer POC ABG pCO2 ABG Sodium ABG Chloride ABG Glucose Carboxyhemoglobin Sodium Potassium Carbon Dioxide BUN Glucose Total Bilirubin Alkaline Phosphatase Lactate Dehydrogenase C-Reactive Protein Albumin HCG, Quant 8871 H Arterial Blood Glucose Urine WBC (Auto) Coronavirus (PCR) Positive A 08/01/21 08/02/21 12:29 00:50 RBC Hgb 9.4 L Hct 28.7 L MCV MCH RDW Seg Neuts % (Manual) Lymphocytes % (Manual) Nucleated RBC % Seg Neutrophils # Man Lymphocytes # (Manual) D-Dimer POC ABG pCO2 ABG Sodium ABG Chloride ABG Glucose Carboxyhemoglobin Sodium Potassium Carbon Dioxide BUN Glucose Total Bilirubin Alkaline Phosphatase Lactate Dehydrogenase C-Reactive Protein Albumin HCG, Quant Arterial Blood Glucose Urine WBC (Auto) 35.0 H Coronavirus (PCR) Chest x-ray: report reviewed, image reviewed Additional Studies: CHEST 1 VIEW 07/30/21 INDICATION: sob. COMPARISON: None. FINDINGS: Support devices: None. Heart: Normal. Lungs/Pleura: There is airspace disease within both mid to lower lungs, right greater than left. No pleural abnormality. IMPRESSION: 1. Bilateral pneumonia CTA CHEST WITH IV CONTRAST 07/30/21 INDICATION: Shortness of breath, difficulty breathing. TECHNIQUE: Axial CT images were obtained through the chest after injection of 100 mL Omnipaque 350 IV contrast. 3 plane MIP reconstructions were produced. All CT scans at this location are performed using CT dose reduction for ALARA by means of automated exposure control. COMPARISON: None available. FINDINGS: Pulmonary Arteries: No pulmonary emboli. Lungs: There are patchy peripheral groundglass opacities in both lungs. Trachea and Bronchi: No significant abnormality. Heart and Pericardium: No significant abnormality. Vasculature: No significant abnormality. Lymphatics: No lymphadenopathy. Additional Findings: None. Upper Abdomen: No acute findings. Skeletal Structures: No acute findings or aggressive bone lesions. IMPRESSION: 1. No CT evidence for pulmonary embolism. 2. Patchy peripheral groundglass opacities in both lungs likely indicating mul tifocal pneumonia. S
--- NOTE | 2021-08-02 17:52 | Progress Note ---
Assessment and Plan Cultures: SARS CoV2 PCR: positive A/P: 31-year-old female with obesity, 32 weeks was admitted with shortness of breath, cough : #Bilateral pneumonia: secondary to COVID-19. Patient is not hypoxic. D-dimer 968, CRP 10.0, ferritin 92. #: 32 weeks . #Morbid obesity Recs: -she remains on room air, is not a candidate for any COVID-19 related the rapeutics at this time. No indication for remdesivir or steroids. If she is positive and becomes hypoxic, she has agreed to steroids and remdesivir. -No need for antibiotics at the present time. Chata Brasher MD [facility] O: [phone] F: [phone] Subjective Date of service: 08/02/21 Interval history: Afebrile, normal white count. Status post delivery. On room air. Objective - Exam Narrative Exam: Physical exam deferred to reduce risk of transmission of COVID-19. Please refer to primary team's note. - Constitutional Vitals: Vital Signs Temp Pulse Resp BP Pulse Ox 97.8 F 57 L 20 99/61 94 08/02/21 16:46 08/02/21 16:46 08/02/21 16:46 08/02/21 16:46 08/02/21 16:46 Temperature -Last 24 Hours Temperature 97.8 F Temperature 97.8 F Temperature 97.9 F Temperature 98.0 F - Labs CBC & Chem 7: 08/02/21 00:50 07/31/21 04:13 Labs: Abnormal lab results 08/01/21 08/02/21 Range/Units 08:55 00:50 Hgb 9.4 L (10.1-14.3) gm/dl Hct 28.7 L (30.3-42.9) % Nucleated RBC % 5.0 H (0.0-0.9) % Lymphocytes # (Manual) 0.9 L (1.2-5.4) K/mm3
[2021-08-02] MEDS: IBUPROFEN 600 MG TAB PO PRN (20:20)
[2021-08-03] MEDS: oxyCODONE /ACETAMINOPHEN 5-325MG TAB PO PRN (01:45)
[2021-08-03] MEDS: VANCOMYCIN/NS 1 GM/250 ML 1 GM/250 ML BAG IV SCH (01:48)
[2021-08-03] MEDS: FUROSEMIDE 20 MG/2 ML INJ IV SCH ×2 (05:42→18:16)
[2021-08-03] MEDS: PRENATAL VIT27-FE FUMARATE-FOLIC ACID VIT TAB PO SCH (11:03)
[2021-08-03] MEDS: FAMOTIDINE 20 MG TAB PO SCH ×2 (11:03→21:10)
[2021-08-03] MEDS: HEPARIN 5,000 UNIT/1 ML VIAL SUB-Q SCH ×2 (11:04→21:10)
[2021-08-03] MEDS: IBUPROFEN 800 MG TAB PO PRN ×2 (12:37→18:16)
--- NOTE | 2021-08-03 13:57 | Progress Note ---
Assessment and Plan A: /postop day 2 S/P primary LTCS (). Bilateral pneumonia. Coronavirus positive. Obesity. Anemia. P: ID and pulmonology following. Iron supplementation. Continue routine /postop care. Coronavirus precautions. Subjective - Subjective Date of service: 08/03/21 Principal diagnosis: /postop day 2 S/P primary LTCS; bilateral pneumonia Interval history: Coronavirus positive. Being followed by pulmonology and ID due to bilateral pneumonia. Patient reports: appetite normal, voiding normally, pain well controlled, flatus, ambulating normally, no dizzy ambulation, no bowel movement, no nauseated : in NICU Objective - Vital Signs Latest vital signs: Vital Signs Temp Pulse Resp BP Pulse Ox Pulse Ox 08/02/21 20:20 98.1 F 70 20 120/67 96 96 08/02/21 16:46 97.8 F 57 L 20 99/61 94 Intake and Output 08/02/21 08/03/21 08/03/21 23:59 07:59 15:59 Output Total 900 Balance -900 Output: Urine 900 Void 900 Other: Total, Output Amount 900 # Voids Void 1 - Exam Cardiovascular: Present: Regular rate Lungs: Present: Other (Rhonchi) Abdomen: Present: normal appearance, soft, normal bowel sounds. Absent: distention, tenderness, guarding, rigidity Uterus: Present: normal, firm, fundal height below umbilicus. Absent: bogginess, tenderness Extremities: Absent: tenderness, edema Incision: Present: dry, dressed
[2021-08-03] MEDS: FERROUS SULFATE 325 MG TAB PO SCH (18:29)
--- NOTE | 2021-08-03 19:43 | Progress Note ---
Assessment and Plan 31-year-old female with history of obesity. 32 weeks was brought to the emergency room because of progressive shortness of breath associated with cough, sore throat pain for last 2 3 days. She denies fever or chills, loss of smell or taste. Patient denies any history of PE or DVT. She denies any leg pain or swelling. Patient denies any known contact with anyone who was tested positive for COVID-19. Patient denies any abdominal pain, vaginal bleeding, or leakage of vaginal fluid. Patient is not vaccinated against COVID-19. Chest CTA showed no CT evidence of PE, patchy peripheral groundglass opacities in the both lungs likely indicating multifocal pneumonia. Patients Tom virus PCR Positive. Patient admitted for diagnosis of Covid pneumonia. Patient denies other medical problems. No history of smoking, alcohol or drug abuse. 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 Patient delivered baby through operation few days ago. Patient alert, awake. Resting on room air. O2 saturation running 97%. No complaint of chest pain or shortness of breath. Complaining slight non productive cough. Patient afebrile. No leukocytosis. Blood pressure 120/67 . Pulse 70. Chest xray done 07/30/21 reported Bilateral pneumonia . CTA of chest done on 07/30/[address] evidence for pulmonary embolism. Patchy peripheral groundglass opacities in both lungs likely indicating multifocal pneumonia. Patient presently on albuteral inhaler 2 puffs po qid., A S/C Heparin, Famotidine. Patient finished course of zithromax and vancomycin. I spent critical care time of 32 minutes, review the chart, examine the patient, review Chest xray, CTA of chest, review lab results, talking to the nursing staff and work out plan of treatment for this COVID 19 pneumonia patient and post . - Patient Problems (1) Coronavirus infection Current Visit: Yes Status: Acute Plan to address problem: Management as per infectious diseases. (2) Pneumonia Current Visit: Yes Status: Acute Plan to address problem: Pneumonia likely from COVID 19 infection. Patient finished course of Zithromax and vancomycin. Albuterol inhaler 2 puffs po qid. Recommend prone position. (3) 32 weeks gestation of Current Visit: Yes Status: Acute Plan to address problem: Patient just delivered Baby few days ago. (4) Obesity Current Visit: Yes Status: Acute Plan to address problem: Recommend to loose weight. Diet and exercise once she recovered from present problem. S/C Heparin. (5) Sepsis Current Visit: Yes Status: Acute Plan to address problem: Patient was On Zithromax and Vancomycin. (6) Anemia Current Visit: No Status: Acute Qualifiers: Anemia type: other cause Other causes of anemia: acute posthemorrhagic Qualified Code(s): D62 - Acute posthemorrhagic anemia Plan to address problem: Management as per primary care Hematology. Subjective Date of service: 08/03/21 Principal diagnosis: /postop day 2 S/P primary LTCS; bilateral pneumonia Interval history: 31-year-old female with history of obesity. 32 weeks was brought to the emergency room because of progressive shortness of breath associated with cough, sore throat pain for last 2 3 days. She denies fever or chills, loss of smell or taste. Patient denies any history of PE or DVT. She denies any leg pain or swelling. Patient denies any known contact with anyone who was tested positive for COVID-19. Patient denies any abdominal pain, vaginal bleeding, or leakage of vaginal fluid. Patient is not vaccinated against COVID-19. Chest CTA showed no CT evidence of PE, patchy peripheral groundglass opacities in the both lungs likely indicating multifocal pneumonia. Patients Tom virus PCR Positive. Patient admitted for diagnosis of Covid pneumonia. Patient denies other medical problems. No history of smoking, alcohol or drug abuse. 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 Patient delivered baby through operation few days ago. Patient alert, awake. Resting on room air. O2 saturation running 97%. No complaint of chest pain or shortness of breath. Complaining slight non productive cough. Patient afebrile. No leukocytosis. Blood pressure 120/67 . Pulse 70. Chest xray done 07/30/21 reported Bilateral pneumonia . CTA of chest done on 07/30/[address] evidence for pulmonary embolism. Patchy peripheral groundglass opacities in both lungs likely indicating multifocal pneumonia. Patient presently on albuteral inhaler 2 puffs po qid., A S/C Heparin, Famotidine. Patient finished course of zithromax and vancomycin. Objective Constitutional: no acute distress, alert, other (Resting on room air.) Eyes: non-icteric Neck: supple, no lymphadenopathy Effort: normal Ascultation: Bilateral: diminished breath sounds, rhonchi Cardiovascular: regular rate and rhythm Gastrointestinal: normoactive bowel sounds, tender, non-distended, other (Slight tenderness at incision site.) Integumentary: normal Extremities: no cyanosis, no edema Neurologic: normal mental status, non-focal exam, pupils equal and round, CN II- XII normal Psychiatric: mood appropriate, affect normal CBC and BMP: 08/02/21 00:50 07/31/21 04:13 ABG, PT/INR, D-dimer: ABG ABG pH 7.355 (7.320-7.450) 07/30/21 20:35 POC ABG pCO2 18.0 mmHg (32.0-48.0) L 07/30/21 20:35 POC ABG pO2 88.2 mmHg (83-108) 07/30/21 20:35 POC ABG HCO3 9.8 07/30/21 20:35 ABG O2 Saturation 96.3 (0-100) 07/30/21 20:35 PT/INR, D-dimer D-Dimer 968.21 ng/mlDDU (0-234) H 07/30/21 18:48 Abnormal lab findings: Abnormal Labs 07/30/21 07/30/21 07/30/21 08:55 17:43 17:43 RBC 5.19 H Hgb Hct MCV 72 L MCH 23 L RDW 18.1 H Seg Neuts % (Manual) 89.0 H Lymphocytes % (Manual) 8.0 L Nucleated RBC % 1.0 H Seg Neutrophils # Man 9.3 H Lymphocytes # (Manual) 0.8 L D-Dimer POC ABG pCO2 ABG Sodium ABG Chloride ABG Glucose Carboxyhemoglobin Sodium 135 L Potassium 3.4 L Carbon Dioxide 8 L* BUN 5 L Glucose 116 H Total Bilirubin 2.10 H Alkaline Phosphatase 189 H Lactate Dehydrogenase 240 H C-Reactive Protein 5.50 H Albumin 3.1 L HCG, Quant Arterial Blood Glucose Urine WBC (Auto) Coronavirus (PCR) 07/30/21 07/30/21 07/30/21 17:43 18:48 18:48 RBC Hgb Hct MCV MCH RDW Seg Neuts % (Manual) Lymphocytes % (Manual) Nucleated RBC % Seg Neutrophils # Man Lymphocytes # (Manual) D-Dimer 984.89 H 968.21 H POC ABG pCO2 ABG Sodium ABG Chloride ABG Glucose Carboxyhemoglobin Sodium Potassium Carbon Dioxide BUN Glucose 115 H Total Bilirubin Alkaline Phosphatase Lactate Dehydrogenase 272 H C-Reactive Protein 10.00 H Albumin HCG, Quant Arterial Blood Glucose Urine WBC (Auto) Coronavirus (PCR) 07/30/21 07/31/21 07/31/21 20:35 04:13 04:13 RBC Hgb Hct MCV 71 L MCH 24 L RDW 18.3 H Seg Neuts % (Manual) 86.0 H Lymphocytes % (Manual) 7.0 L Nucleated RBC % 2.0 H Seg Neutrophils # Man 8.2 H Lymphocytes # (Manual) 0.7 L D-Dimer POC ABG pCO2 18.0 L ABG Sodium 135.3 L ABG Chloride 108.0 H ABG Glucose 101 H Carboxyhemoglobin 0.4 L Sodium Potassium 3.4 L Carbon Dioxide 12 L BUN 6 L Glucose Total Bilirubin Alkaline Phosphatase Lactate Dehydrogenase C-Reactive Protein Albumin HCG, Quant Arterial Blood Glucose 101 H Urine WBC (Auto) Coronavirus (PCR) 07/31/21 08/01/21 08/01/21 08:08 08:55 08:55 RBC Hgb 10.0 L Hct 29.4 L MCV 70 L MCH 24 L RDW 18.0 H Seg Neuts % (Manual) Lymphocytes % (Manual) Nucleated RBC % 5.0 H Seg Neutrophils # Man Lymphocytes # (Manual) 0.9 L D-Dimer POC ABG pCO2 ABG Sodium ABG Chloride ABG Glucose Carboxyhemoglobin Sodium Potassium Carbon Dioxide BUN Glucose Total Bilirubin Alkaline Phosphatase Lactate Dehydrogenase C-Reactive Protein Albumin HCG, Quant 8871 H Arterial Blood Glucose Urine WBC (Auto) Coronavirus (PCR) Positive A 08/01/21 08/02/21 12:29 00:50 RBC Hgb 9.4 L Hct 28.7 L MCV MCH RDW Seg Neuts % (Manual) Lymphocytes % (Manual) Nucleated RBC % Seg Neutrophils # Man Lymphocytes # (Manual) D-Dimer POC ABG pCO2 ABG Sodium ABG Chloride ABG Glucose Carboxyhemoglobin Sodium Potassium Carbon Dioxide BUN Glucose Total Bilirubin Alkaline Phosphatase Lactate Dehydrogenase C-Reactive Protein Albumin HCG, Quant Arterial Blood Glucose Urine WBC (Auto) 35.0 H Coronavirus (PCR)
[2021-08-04] MEDS ORDERED: ALBUTEROL 2.5 MG/3 ML NEBU IH SCH (02:00)
[2021-08-04] MEDS: FUROSEMIDE 20 MG/2 ML INJ IV SCH (06:25)
[2021-08-04] MEDS: IBUPROFEN 600 MG TAB PO PRN (07:52)
--- NOTE | 2021-08-04 08:00 | Ultrasound Report ---
ULTRASOUND BIOPHYSICAL PROFILE INDICATION: labor. COMPARISON: None available. FINDINGS: heart rate is 156 beats per minute. breathing movement = 0 Gross body movement = 2 tone = 2 Qualitative amniotic fluid volume = 2 IMPRESSION: biophysical profile = 04/15 Signer Name: Joe Hutchison Jr, MD Signed: 08/04/2021 7:56 AM Workstation Name: [id number]
[2021-08-04] MEDS: PRENATAL VIT27-FE FUMARATE-FOLIC ACID VIT TAB PO SCH (09:05)
[2021-08-04] MEDS: FERROUS SULFATE 325 MG TAB PO SCH (09:05)
[2021-08-04] MEDS: FAMOTIDINE 20 MG TAB PO SCH (09:05)
[2021-08-04] MEDS: HEPARIN 5,000 UNIT/1 ML VIAL SUB-Q SCH (09:11)
--- NOTE | 2021-08-04 10:45 | Progress Note ---
Assessment and Plan Cultures: SARS CoV2 PCR: positive A/P: 31-year-old female with obesity, 32 weeks was admitted with shortness of breath, cough : #Bilateral pneumonia: secondary to COVID-19. Patient is not hypoxic. D-dimer 968, CRP 10.0, ferritin 92. #: Status post on 08/01/2021. #Morbid obesity Recs: -she remains on room air, is not a candidate for any COVID-19 related therapeutics at this time. No indication for remdesivir or steroids. -completed abx ID will sign off. Please reconsult as needed. Loco Vincent MD, FACP [facility] O: [phone] F: [phone] Subjective Date of service: 08/04/21 Principal diagnosis: /postop day 2 S/P primary LTCS; bilateral pneumonia Interval history: Afebrile. Remains on room air. Objective - Exam Narrative Exam: Physical Exam (reviewed in chart to minimize risk of transmission) Constitutional: deferred Head, Ears, Nose: deferred Eyes: deferred Neck: deferred Oral: deferred Cardiovascular: deferred Respiratory: deferred GI: deferred Musculoskeletal: deferred Skin: deferred Hem/Lymphatic: deferred Psych: deferred Neurological: deferred - Constitutional Vitals: Vital Signs Temp Pulse Resp BP Pulse Ox 97.5 F L 82 18 100/61 97 08/04/21 08:00 08/04/21 10:24 08/04/21 08:00 08/04/21 10:24 08/04/21 08:00 Temperature -Last 24 Hours Temperature 97.5 F Temperature 98.0 F - Labs CBC & Chem 7: 08/02/21 00:50 07/31/21 04:13
[2021-08-04] MEDS: oxyCODONE /ACETAMINOPHEN 5-325MG TAB PO PRN (11:34)
--- NOTE | 2021-08-04 12:49 | Progress Note ---
Assessment and Plan A: S/P Primary LTCS Asymptomatic anemia Obesity Covid pneu P: Continue routine pp orders Encourage ambulation Fe as prescribed Pulmonary following D/C home when cleared by pulmonary Subjective - Subjective Date of service: 08/04/21 Principal diagnosis: /postop day 2 S/P primary LTCS; bilateral pneumonia Patient reports: appetite normal, voiding normally, pain well controlled, flatus, ambulating normally, other (resp even and unlab. No c/o SOB) [place]: doing well, in NICU Objective - Vital Signs Latest vital signs: Vital Signs Temp Pulse Resp BP Pulse Ox Pulse Ox 08/04/21 10:24 82 100/61 08/04/21 08:00 97.5 F L 66 18 87/56 98 97 08/04/21 00:06 98.0 F 88 12 109/70 97 08/03/21 20:40 98 Intake and Output 08/03/21 08/04/21 08/04/21 22:59 06:59 14:59 Intake Total 150 150 Output Total 200 300 Balance -50 -150 Intake: Oral 150 150 Output: Urine 200 300 Void 200 300 Other: Total, Intake Amount 150 150 Total, Output Amount 200 300 # Voids Void 1 - Exam Breasts: Present: normal Abdomen: Present: normal appearance, soft, normal bowel sounds Vulva: both: normal Uterus: Present: normal, firm, fundal height below umbilicus Extremities: Present: normal Incision: Present: normal, dry, intact
[2021-08-04] MEDS ORDERED: ALBUTEROL 8.5 GM MDI INHALATION IH PRN (13:00)
--- NOTE | 2021-08-04 13:57 | Progress Note ---
Assessment and Plan 31-year-old female with history of obesity. 32 weeks was brought to the emergency room because of progressive shortness of breath associated with cough, sore throat pain for last 2 3 days. She denies fever or chills, loss of smell or taste. Patient denies any history of PE or DVT. She denies any leg pain or swelling. Patient denies any known contact with anyone who was tested positive for COVID-19. Patient denies any abdominal pain, vaginal bleeding, or leakage of vaginal fluid. Patient is not vaccinated against COVID-19. Chest CTA showed no CT evidence of PE, patchy peripheral groundglass opacities in the both lungs likely indicating multifocal pneumonia. Patients Tom virus PCR Positive. Patient admitted for diagnosis of Covid pneumonia. Patient denies other medical problems. No history of smoking, alcohol or drug abuse. 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 Patient delivered baby through operation few days ago. Patient alert, awake. Resting on room air. O2 saturation running 97%. No complaint of chest pain or shortness of breath. Complaining slight non productive cough. Patient afebrile. No leukocytosis. Blood pressure 100/61 . Pulse 82. Chest xray done 07/30/21 reported Bilateral pneumonia . CTA of chest done on 07/30/[address] evidence for pulmonary embolism. Patchy peripheral groundglass opacities in both lungs likely indicating multifocal pneumonia. Patient presently on albuteral inhaler 2 puffs po qid., A S/C Heparin, Famotidine. Patient finished course of zithromax and vancomycin. Patient is going to be discharged to day. Explained to the patient COVID 19 precautions. Recommend to to recheck COVID 19 test. If that is negative can make appointment with my office for pulmonary follow. In the mean time if patient develops fever, shortness of breath or chest pain, recommend to go to emergency room. I - Patient Problems (1) Coronavirus infection Current Visit: Yes Status: Acute Plan to address problem: Management as per infectious diseases. (2) Pneumonia Current Visit: Yes Status: Acute Plan to address problem: Pneumonia likely from COVID 19 infection. Patient finished course of Zithromax and vancomycin. Albuterol inhaler 2 puffs po qid. Recommend prone position. (3) 32 weeks gestation of Current Visit: Yes Status: Acute Plan to address problem: Patient just delivered Baby few days ago. (4) Obesity Current Visit: Yes Status: Acute Plan to address problem: Recommend to loose weight. Diet and exercise once she recovered from present problem. S/C Heparin. (5) Sepsis Current Visit: Yes Status: Acute Plan to address problem: Patient was On Zithromax and Vancomycin. (6) Anemia Current Visit: No Status: Acute Qualifiers: Anemia type: other cause Other causes of anemia: acute posthemorrhagic Qualified Code(s): D62 - Acute posthemorrhagic anemia Plan to address problem: Management as per primary care Hematology. Subjective Date of service: 08/04/21 Principal diagnosis: /postop day 2 S/P primary LTCS; bilateral pneumonia Interval history: 31-year-old female with history of obesity. 32 weeks was brought to the emergency room because of progressive shortness of breath associated with cough, sore throat pain for last 2 3 days. She denies fever or chills, loss of smell or taste. Patient denies any history of PE or DVT. She denies any leg pain or swelling. Patient denies any known contact with anyone who was tested positive for COVID-19. Patient denies any abdominal pain, vaginal bleeding, or leakage of vaginal fluid. Patient is not vaccinated against COVID-19. Chest CTA showed no CT evidence of PE, patchy peripheral groundglass opacities in the both lungs likely indicating multifocal pneumonia. Patients Tom virus PCR Positive. Patient admitted for diagnosis of Covid pneumonia. Patient denies other medical problems. No history of smoking, alcohol or drug abuse. 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 Patient delivered baby through operation few days ago. Patient alert, awake. Resting on room air. O2 saturation running 97%. No complaint of chest pain or shortness of breath. Complaining slight non productive cough. Patient afebrile. No leukocytosis. Blood pressure 100/61 . Pulse 82. Chest xray done 07/30/21 reported Bilateral pneumonia . CTA of chest done on 07/30/[address] evidence for pulmonary embolism. Patchy peripheral groundglass opacities in both lungs likely indicating multifocal pneumonia. Patient presently on albuteral inhaler 2 puffs po qid., A S/C Heparin, Famotidine. Patient finished course of zithromax and vancomycin. Patient is going to be discharged to day. Explained to the patient COVID 19 precautions. Recommend to to recheck COVID 19 test. If that is negative can make appointment with my office for pulmonary follow. In the mean time if patient develops fever, shortness of breath or chest pain, recommend to go to emergency room. Objective Vital Signs - 12hr 08/04/21 08/04/21 08:00 10:24 Temperature 97.5 F L Pulse Rate 66 82 Respiratory 18 Rate Blood Pressure 87/56 100/61 [Right] O2 Sat by Pulse 98 Oximetry O2 Sat by Pulse 97 Oximetry [ Anterior Left Throughout] Constitutional: no acute distress, alert, other (Resting on room air.) Eyes: non-icteric Neck: supple, no lymphadenopathy Effort: normal Ascultation: Bilateral: diminished breath sounds, rhonchi Cardiovascular: regular rate and rhythm Gastrointestinal: normoactive bowel sounds, tender, non-distended, other (Slight tenderness at incision site.) Integumentary: normal Extremities: no cyanosis, no edema Neurologic: normal mental status, non-focal exam, pupils equal and round, CN II- XII normal Psychiatric: mood appropriate, affect normal CBC and BMP: 08/02/21 00:50 07/31/21 04:13 ABG, PT/INR, D-dimer: ABG ABG pH 7.355 (7.320-7.450) 07/30/21 20:35 POC ABG pCO2 18.0 mmHg (32.0-48.0) L 07/30/21 20:35 POC ABG pO2 88.2 mmHg (83-108) 07/30/21 20:35 POC ABG HCO3 9.8 07/30/21 20:35 ABG O2 Saturation 96.3 (0-100) 07/30/21 20:35 PT/INR, D-dimer D-Dimer 968.21 ng/mlDDU (0-234) H 07/30/21 18:48 Abnormal lab findings: Abnormal Labs 07/30/21 07/30/21 07/30/21 08:55 17:43 17:43 RBC 5.19 H Hgb Hct MCV 72 L MCH 23 L RDW 18.1 H Seg Neuts % (Manual) 89.0 H Lymphocytes % (Manual) 8.0 L Nucleated RBC % 1.0 H Seg Neutrophils # Man 9.3 H Lymphocytes # (Manual) 0.8 L D-Dimer POC ABG pCO2 ABG Sodium ABG Chloride ABG Glucose Carboxyhemoglobin Sodium 135 L Potassium 3.4 L Carbon Dioxide 8 L* BUN 5 L Glucose 116 H Total Bilirubin 2.10 H Alkaline Phosphatase 189 H Lactate Dehydrogenase 240 H C-Reactive Protein 5.50 H Albumin 3.1 L HCG, Quant Arterial Blood Glucose Urine WBC (Auto) Coronavirus (PCR) 07/30/21 07/30/21 07/30/21 17:43 18:48 18:48 RBC Hgb Hct MCV MCH RDW Seg Neuts % (Manual) Lymphocytes % (Manual) Nucleated RBC % Seg Neutrophils # Man Lymphocytes # (Manual) D-Dimer 984.89 H 968.21 H POC ABG pCO2 ABG Sodium ABG Chloride ABG Glucose Carboxyhemoglobin Sodium Potassium Carbon Dioxide BUN Glucose 115 H Total Bilirubin Alkaline Phosphatase Lactate Dehydrogenase 272 H C-Reactive Protein 10.00 H Albumin HCG, Quant Arterial Blood Glucose Urine WBC (Auto) Coronavirus (PCR) 07/30/21 07/31/21 07/31/21 20:35 04:13 04:13 RBC Hgb Hct MCV 71 L MCH 24 L RDW 18.3 H Seg Neuts % (Manual) 86.0 H Lymphocytes % (Manual) 7.0 L Nucleated RBC % 2.0 H Seg Neutrophils # Man 8.2 H Lymphocytes # (Manual) 0.7 L D-Dimer POC ABG pCO2 18.0 L ABG Sodium 135.3 L ABG Chloride 108.0 H ABG Glucose 101 H Carboxyhemoglobin 0.4 L Sodium Potassium 3.4 L Carbon Dioxide 12 L BUN 6 L Glucose Total Bilirubin Alkaline Phosphatase Lactate Dehydrogenase C-Reactive Protein Albumin HCG, Quant Arterial Blood Glucose 101 H Urine WBC (Auto) Coronavirus (PCR) 07/31/21 08/01/21 08/01/21 08:08 08:55 08:55 RBC Hgb 10.0 L Hct 29.4 L MCV 70 L MCH 24 L RDW 18.0 H Seg Neuts % (Manual) Lymphocytes % (Manual) Nucleated RBC % 5.0 H Seg Neutrophils # Man Lymphocytes # (Manual) 0.9 L D-Dimer POC ABG pCO2 ABG Sodium ABG Chloride ABG Glucose Carboxyhemoglobin Sodium Potassium Carbon Dioxide BUN Glucose Total Bilirubin Alkaline Phosphatase Lactate Dehydrogenase C-Reactive Protein Albumin HCG, Quant 8871 H Arterial Blood Glucose Urine WBC (Auto) Coronavirus (PCR) Positive A 08/01/21 08/02/21 12:29 00:50 RBC Hgb 9.4 L Hct 28.7 L MCV MCH RDW Seg Neuts % (Manual) Lymphocytes % (Manual) Nucleated RBC % Seg Neutrophils # Man Lymphocytes # (Manual) D-Dimer POC ABG pCO2 ABG Sodium ABG Chloride ABG Glucose Carboxyhemoglobin Sodium Potassium Carbon Dioxide BUN Glucose Total Bilirubin Alkaline Phosphatase Lactate Dehydrogenase C-Reactive Protein Albumin HCG, Quant Arterial Blood Glucose Urine WBC (Auto) 35.0 H Coronavirus (PCR)
[2021-08-04 16:00] VITALS: BP 99/64
[2021-08-04] MEDS: IBUPROFEN 800 MG TAB PO PRN (16:28)
--- NOTE | 2021-08-05 08:32 | Discharge Summary ---
Providers - Providers Date of Admission: 07/30/21 22:11 Date of discharge: 08/04/21 Attending physician: JAYA YBARRA MD 07/30/21 20:51 Consult to Physician [CONS] Stat Comment: Dr. Nuñez spoke with Dr. Reilly @ 2049 Consulting Provider: JAVI REILLY JR Physician Instructions: Reason For Exam: 32 wks preg 07/30/21 22:11 Consult to Physician [CONS] Routine Comment: Consulting Provider: RACHELLE GARIBAY Physician Instructions: Reason For Exam: Covid 07/30/21 23:01 Consult to Physician [CONS] Routine Comment: Consulting Provider: ARYAN SPENCER Physician Instructions: Reason For Exam: covid 07/31/21 18:55 Consult to Physician [CONS] Routine Comment: Consulting Provider: [facility] Physician Instructions: Reason For Exam: labor, steroid for FLM with dexa for covid Primary care physician: JAYA YBARRA MD Hospitalization Reason for admission: IUP - , labor Delivery: Procedure: primary low transverse Episiotomy: none Laceration: none Incision: normal, dry, intact Other procedures: other (Pos covid 19 pt was seen by pulmonary and ID) complications: other (covid 19 pos) Discharge diagnosis: delivery baby: male Hospital course: Symptomatic covid 19 pos pt was admitted to L&D in early labor r/t shelby pneu. She underwent a primary LTCS r/t NRFHT and was seen by pulmonary and ID pp. See H&P, delivery summary, and pp note. Condition at discharge: Stable Disposition: 01 HOME / SELF CARE / HOMELESS Plan - Provider Discharge Summary Activity: routine, no sex for 6 weeks, no heavy lifting 4 weeks, no strenuous exercise Diet: other (High Fe) Instructions: routine Additional instructions: [] Smoking cessation referral if applicable(refer to patient education folder for contact #) [] Refer to [facility] Booklet Call your doctor immediately for: * Fever > 100.5 * Heavy vaginal bleeding ( >1 pad per hour) * Severe persistent headache * Shortness of breath * Reddened, hot, painful area to leg or breast * Drainage or odor from incision. * Keep incision clean and dry at all times and follow doctor's instructions regarding bathing/showering F/u with Dr Ybarra in 14 days - Follow up plan Follow up: PRIMARY CARE, [Referring] - 3 Days (Dr YBARRA) Forms: [facility] Discharge Summary
== END 2021-08-04 19:25 | disposition home or self-care (01) | DRG 765 ==
LOC: ED 16:50 → IMCU 22:11 → LD 07-31 11:59 → APU 08-01 12:18 → OB 08-01 15:08
PROC: 10D00Z1 Extraction of Products of Conception, Low, Open Approach (ICD-10-PCS; principal; 2021-08-01)
DX: O98.52 Other viral diseases complicating childbirth (principal); O75.3 Other infection during labor; U07.1 COVID-19; A41.9 Sepsis, unspecified organism; J12.82 Pneumonia due to coronavirus disease 2019; O60.14X0 Preterm labor third trimester with preterm delivery third trimester, not applicable or unspecified; Z37.0 Single live birth; Z3A.32 32 weeks gestation of pregnancy; O99.52 Diseases of the respiratory system complicating childbirth; O99.214 Obesity complicating childbirth; E66.01 Morbid (severe) obesity due to excess calories; O76 Abnormality in fetal heart rate and rhythm complicating labor and delivery; O99.62 Diseases of the digestive system complicating childbirth; K21.9 Gastro-esophageal reflux disease without esophagitis; O90.81 Anemia of the puerperium; D62 Acute posthemorrhagic anemia
CPT/HCPCS: 36415; 71045; 71275; 76805; 76819; 80048; 80053; 80307; 81001; 82728; 82805; 82947; 83615; 84145; 84702; 85007; 85014; 85018; 85025; 85379; 86140; 86592; 86706; 86762; 86803; 86850; 86900; 86901; 87086; 87806; 88307; 93005; G0378; J0456; J0702; J1170; J1644; J1885; J1940; J2270; J2370; J2405; J2765; J3105; J3370; J3490; J7120; J7121; Q9967; U0003